=== PATIENT | male | born 1995 | race Caucasian/White ===

== ENCOUNTER 2018-06-21 00:02 | Emergency (ER) | payer BC ==
[2018-06-21 00:16] VITALS: RESP 18
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
[2018-06-21 07:34] VITALS: BP 120/60; PULSE 82; TEMP 97
== END 2018-06-21 08:37 | disposition home or self-care (01) ==
LOC: EC 00:02 → SUPCPDRO 00:02 → EC 08:37
DX: F10.120 Alcohol abuse with intoxication, uncomplicated (principal); F17.200 Nicotine dependence, unspecified, uncomplicated
CPT/HCPCS: 82075; 99284

== ENCOUNTER 2019-04-04 22:52 | Emergency (ER) | payer BC ==
[2019-04-04 23:01] VITALS: BP 140/84; PULSE 108; RESP 18; TEMP 97.8
[2019-04-04] MEDS ORDERED: LIDOCAINE 1% INJ 10MG/ML (20 ML MDV) SQ ONE (23:49)
[2019-04-04] MEDS ORDERED: DIPH,PERTUS(ACELL)TETVAC-LF 0.5 ML VIAL IM ONE (23:49)
[2019-04-04] MEDS ORDERED: LORazepam 2 MG/ML INJ IM STA (23:56)
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
[2019-04-05 01:08] LABS: Amphetamine Screen,Urine Not Detected (NotDetected); Barbiturate Screen,Urine Not Detected (NotDetected); Benzodiazepines Screen,Urine Not Detected (NotDetected); Cocaine Screen,Urine Not Detected (NotDetected); Methadone Screen, Urine Not Detected (NotDetected); Opiate Screen,Urine Not Detected (NotDetected); Oxycodone Screen, Urine Not Detected (NotDetected); Phencyclidine Screen,Urine Not Detected (NotDetected); Tricyclic Antidepressant,Urine Not Detected (NotDetected); Urn Cannabinoid Scrn Not Detected (NotDetected)
--- NOTE | 2019-04-05 01:08 | CT ---
EXAM: CT Head Without Intravenous Contrast CT Maxillofacial Without Intravenous Contrast CLINICAL HISTORY: ITS.REASON CT Reason: Pain TECHNIQUE: Axial computed tomography images of the head/brain and face without intravenous contrast. CTDI is 9 mGy and DLP is 285 mGy-cm. This CT exam was performed using one or more of the following dose reduction techniques: automated exposure control, adjustment of the mA and/or kV according to patient size, and/or use of iterative reconstruction technique. COMPARISON: No relevant prior studies available. FINDINGS: Brain: Unremarkable. No hemorrhage. No significant white matter disease. No edema. Ventricles: Unremarkable. No ventriculomegaly. Bones/joints: No acute fracture. Soft tissues: Unremarkable. Sinuses: Unremarkable. No acute sinusitis. Mastoid air cells: Unremarkable. No mastoid effusion. Orbits: Unremarkable. IMPRESSION: No acute facial fracture.
--- NOTE | 2019-04-05 01:10 | CT ---
EXAM: CT Head Without Intravenous Contrast CLINICAL HISTORY: ITS.REASON CT Reason: Pain TECHNIQUE: Axial computed tomography images of the head/brain without intravenous contrast. CTDI is 6 mGy and DLP is 823 mGy-cm. This CT exam was performed using one or more of the following dose reduction techniques: automated exposure control, adjustment of the mA and/or kV according to patient size, and/or use of iterative reconstruction technique. COMPARISON: No relevant prior studies available. FINDINGS: Brain: No hemorrhage, large hypodensity, or mass effect. Ventricles: No hydrocephalus. Bones/joints: Unremarkable. Soft tissues: Unremarkable. Sinuses: Unremarkable. Mastoid air cells: Clear. IMPRESSION: No acute hemorrhage, hydrocephalus, or mass effect. EXAM: CT Cervical Spine Without Intravenous Contrast CLINICAL HISTORY: ITS.REASON CT Reason: Pain TECHNIQUE: Axial computed tomography images of the cervical spine without intravenous contrast. CTDI is 9 mGy and DLP is 284 mGy-cm. This CT exam was performed using one or more of the following dose reduction techniques: automated exposure control, adjustment of the mA and/or kV according to patient size, and/or use of iterative reconstruction technique. COMPARISON: No relevant prior studies available. FINDINGS: Vertebrae: No acute fracture. Discs/spinal canal/neural foramina: No high grade spinal canal stenosis. Soft tissues: Unremarkable. IMPRESSION: No acute fracture or subluxation.
== END 2019-04-05 01:33 | disposition home or self-care (01) ==
LOC: EC 22:52
DX: S01.112A Laceration without foreign body of left eyelid and periocular area, initial encounter (principal); S51.811A Laceration without foreign body of right forearm, initial encounter; F10.129 Alcohol abuse with intoxication, unspecified; F17.200 Nicotine dependence, unspecified, uncomplicated; Z23 Encounter for immunization; Y04.0XXA Assault by unarmed brawl or fight, initial encounter
CPT/HCPCS: 80306; 72125; 70486; 70450; 90715; 99284; 12013; 12002; 96372; 90471; J2060; J2001

== ENCOUNTER 2020-04-10 20:45 | Emergency (ER) | payer BC ==
[2020-04-10] MEDS ORDERED: PANTOPRAZOLE 40 MG/10 ML VIAL IVP STA (21:04)
[2020-04-10] MEDS ORDERED: SODIUM CHLORIDE 0.9% 1,000 ML IV ONE (21:04)
[2020-04-10] MEDS ORDERED: SODIUM CHLORIDE 0.9% 1,000 ML with MVI, ADULT NO.4 WITH VIT K 10 ML, THIAMINE 100 MG, F... IV ONE ×4 (21:04)
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
[2020-04-10] MEDS ORDERED: SODIUM CHLORIDE 0.9% 1,000 ML IV SCH (21:15)
[2020-04-10 21:23] LABS: HCT 50.1 % (39.0-53.0); HGB 16.4 gm/dL (13.0-17.5); MCH 30.5 pg (25.0-35.0); MCHC 32.7 g/dL (31.0-37.0); MCV 93.1 fL (80.0-100.0); Mean Platelet Volume 7.6; Platelet Count 288 k/uL (150-450); RBC 5.38 m/uL (4.30-5.90); RDW 13.6 % (11.5-15.5); WBC 13.5 k/uL (3.8-10.6)
[2020-04-10 21:26] LABS: Appearance,Urine Clear (Clear); Bilirubin,Urine Negative (Negative); Blood,Urine Negative (Negative); Color,Urine Light Yellow; Glucose,Urine (UA) Negative (Negative); Ketones,Urine Negative (Negative); Leukocyte Esterase,Urine Negative (Negative); Nitrite,Urine Negative (Negative); PH, Urine 6.5 (5.0-8.0); Protein,Urine Negative (Negative); Specific Gravity,Urine 1.005 (1.001-1.035); Urobilinogen,Urine <2.0 mg/dL (<2.0)
[2020-04-10 21:33] LABS: ALT 56 U/L (4-49); AST 47 U/L (17-59); African American GFR (CKD) >90 (>60 ml/min/1.73 sqM); Albumin 5.3 g/dL (3.5-5.0); Alkaline Phosphatase 62 U/L (38-126); Amylase 72 U/L (30-110); Anion Gap 17 mmol/L; Blood Urea Nitrogen 9 mg/dL (9-20); Calcium 11.1 mg/dL (8.4-10.2); Carbon Dioxide 23 mmol/L (22-30); Chloride 103 mmol/L (98-107); Glucose 124 mg/dL (74-99); Magnesium 1.8 mg/dL (1.6-2.3); Non-African American GFR(CKD) >90 (>60 ml/min/1.73 sqM); Potassium 3.9 mmol/L (3.5-5.1); Sodium 143 mmol/L (137-145); Total Bilirubin 0.5 mg/dL (0.2-1.3); Total Protein 8.5 g/dL (6.3-8.2)
[2020-04-10 21:46] LABS: Amphetamine Screen,Urine Not Detected (NotDetected); Barbiturate Screen,Urine Not Detected (NotDetected); Benzodiazepines Screen,Urine Not Detected (NotDetected); Cocaine Screen,Urine Not Detected (NotDetected); Methadone Screen, Urine Not Detected (NotDetected); Opiate Screen,Urine Not Detected (NotDetected); Oxycodone Screen, Urine Not Detected (NotDetected); Phencyclidine Screen,Urine Not Detected (NotDetected); Tricyclic Antidepressant,Urine Not Detected (NotDetected); Urn Cannabinoid Scrn Not Detected (NotDetected)
[2020-04-10 21:50] LABS: Band Neutrophils % 5 %; Eosinophils # (M) 0.41 k/uL (0-0.7); Lymphocytes # (M) 3.51 k/uL (1.0-4.8); Monocytes # (M) 0.68 k/uL (0-1.0); Neutrophils % (M) 61 %; Nucleated Red Blood Cells 0 /100 WBC (0-0); Total Cells Counted 100
[2020-04-11 03:40] VITALS: BP 153/90; PULSE 83; RESP 18; TEMP 98
== END 2020-04-11 03:40 | disposition home or self-care (01) ==
LOC: EC 20:45
DX: F10.129 Alcohol abuse with intoxication, unspecified (principal); R45.851 Suicidal ideations; R10.13 Epigastric pain; Z91.5 Personal history of self-harm
CPT/HCPCS: 82075; 36415; 80053; 82150; 83690; 83735; 85025; 81003; 80306; 99285; 96365; 96366 ×5; 96375; J3411; C9113

== ENCOUNTER 2020-04-13 21:15 | Observation (INO) | payer BC ==
[2020-04-13] MEDS ORDERED: SODIUM CHLORIDE 0.9% 1,000 ML IV ONE ×2 (21:50)
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
[2020-04-13 22:27] LABS: African American GFR (CKD) >90 (>60 ml/min/1.73 sqM); Amylase 69 U/L (30-110); Anion Gap 14 mmol/L; Blood Urea Nitrogen 11 mg/dL (9-20); Calcium 9.1 mg/dL (8.4-10.2); Carbon Dioxide 24 mmol/L (22-30); Chloride 106 mmol/L (98-107); Glucose 104 mg/dL (74-99); Magnesium 2.1 mg/dL (1.6-2.3); Non-African American GFR(CKD) >90 (>60 ml/min/1.73 sqM); Potassium 3.9 mmol/L (3.5-5.1); Sodium 144 mmol/L (137-145)
[2020-04-13 22:30] LABS: Phencyclidine Screen,Urine Not Detected (NotDetected); Urn Cannabinoid Scrn Not Detected (NotDetected)
[2020-04-13 22:31] LABS: Amphetamine Screen,Urine Not Detected (NotDetected); Barbiturate Screen,Urine Not Detected (NotDetected); Benzodiazepines Screen,Urine Not Detected (NotDetected); Cocaine Screen,Urine Not Detected (NotDetected); Methadone Screen, Urine Not Detected (NotDetected); Opiate Screen,Urine Not Detected (NotDetected); Oxycodone Screen, Urine Not Detected (NotDetected); Tricyclic Antidepressant,Urine Not Detected (NotDetected)
[2020-04-13 23:02] LABS: Alcohol 343 mg/dL
[2020-04-13 23:21] LABS: HCT 46.6 % (39.0-53.0); HGB 15.6 gm/dL (13.0-17.5); MCH 31.4 pg (25.0-35.0); MCHC 33.4 g/dL (31.0-37.0); Mean Platelet Volume 7.8; Platelet Count 229 k/uL (150-450); RBC 4.96 m/uL (4.30-5.90); RDW 13.9 % (11.5-15.5); WBC 8.6 k/uL (3.8-10.6)
[2020-04-13] MEDS ORDERED: ONDANSETRON 4 MG/2 ML VIAL IVP STA (23:45)
[2020-04-13 23:56] LABS: Band Neutrophils % 3 %; Basophils # (M) 0.26 k/uL (0-0.2); Eosinophils # (M) 0.43 k/uL (0-0.7); Lymphocytes # (M) 2.32 k/uL (1.0-4.8); Monocytes # (M) 0.34 k/uL (0-1.0); Neutrophils % (M) 58 %; Nucleated Red Blood Cells 0 /100 WBC (0-0); Total Cells Counted 100
[2020-04-13] MEDS ORDERED: IBUPROFEN 400 MG TAB PO PRN (23:56)
[2020-04-13] MEDS ORDERED: NALOXONE 0.4 MG/ML 1 ML VIAL IV PRN (23:56)
[2020-04-13] MEDS ORDERED: ONDANSETRON 4 MG/2 ML VIAL IVP PRN (23:56)
[2020-04-13] MEDS ORDERED: LORazepam 2 MG/ML INJ IV PRN ×2 (23:57)
[2020-04-13] MEDS ORDERED: THIAMINE 100 MG/ML 2 ML VIAL IM STA (23:57)
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
[2020-04-14] MEDS: LORazepam 2 MG/ML INJ IV PRN ×2 (02:23→08:38)
[2020-04-14] MEDS: PANTOPRAZOLE 40 MG TABLET PO SCH ×3 (02:27→17:18)
[2020-04-14] MEDS: SODIUM CHLORIDE 0.9% 1,000 ML IV SCH ×3 (02:34→17:17)
[2020-04-14] MEDS: THIAMINE 100 MG TAB PO SCH ×3 (02:49→17:18)
[2020-04-14] MEDS: NICOTINE 21MG/24HR PATCH TRANSDERM SCH (08:30)
[2020-04-14] MEDS ORDERED: PANTOPRAZOLE 40 MG/10 ML VIAL IV SCH (09:00)
[2020-04-14] MEDS ORDERED: THIAMINE 100 MG/ML 2 ML VIAL IM STA (10:30)
[2020-04-14] MEDS: FOLIC ACID 1 MG TAB PO SCH (11:03)
--- NOTE | 2020-04-14 12:07 | XR ---
EXAMINATION TYPE: XR ankle complete RT DATE OF EXAM: 04/14/2020 COMPARISON: None HISTORY: Pain TECHNIQUE: Three-view right ankle FINDINGS: Ankle mortise is intact. No acute fractures or dislocations are evident. Soft tissues appea r normal. IMPRESSION: 1. Normal three-view right ankle. 2. Follow-up exams can be performed 7-10 days from acute trauma for continued pain
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
--- NOTE | 2020-04-14 18:27 | P.PN ---
Progress Note - Text Progress Note Date: 04/14/20 (delayed charting seen at 0945) Hospitalist Interval Note Patient seen and examined at bedside. He does report some intermittent gastritis, he is having some anxiety, diaphoresis, and tremors. He does have a history of possible trial seizure in the past. Does state "drinking alcohol. He has been drinking a pint +3 large beers daily. Vital signs reviewed General: non toxic, no distress, appears at stated age Derm: warm, diaphoretic Head: atraumatic, normocephalic, symmetric Eyes: EOMI, no lid lag, anicteric sclera Mouth: no lip lesion, mucus membranes moist Cardiovascular: S1S2 reg, no murmur, positive posterior tibial pulse bilateral, Lungs: CTA bilateral, no rhonchi, no rales , no accessory muscle use Abdominal: soft, nontender to palpation, no guarding, no appreciable organomegaly Ext: no gross muscle atrophy, no edema, no contractures Neuro: CN II-XI grossly intact, no focal neuro deficits, tremor Psych: Alert, oriented, appropriate affect Assessment/Plan: Alcohol intoxication with withdrawal symptoms -Add Librium, continue with CIWA, thiamine, folic acid Suicidal ideation -Await psychiatric evaluation Tobacco abuse -Nicotine replacement This is an update note for patient , for full note on 04/14/2020 see history and physical by Dr. Kiser. There is no charge associated with this note.
[2020-04-15] MEDS: SODIUM CHLORIDE 0.9% 1,000 ML IV SCH ×2 (01:21→08:41)
[2020-04-15] MEDS: NICOTINE 21MG/24HR PATCH TRANSDERM SCH (08:37)
[2020-04-15] MEDS: THIAMINE 100 MG TAB PO SCH (08:37)
[2020-04-15] MEDS: FOLIC ACID 1 MG TAB PO SCH (08:37)
[2020-04-15] MEDS: PANTOPRAZOLE 40 MG TABLET PO SCH (08:38)
--- NOTE | 2020-04-15 10:29 | P.DS ---
Providers Date of admission: 04/14/20 00:20 Expected date of discharge: 04/15/20 Attending physician: Baldomero Benito MD Consults: 04/13/20 23:56 Consult Physician Stat Consulting Provider: Savage Maher Reason/Comments: suicidal ideation Do you want consulting provider notified?: Yes Primary care physician: Stated None Hospital Course: Discharge Diagnosis: Alcohol intoxication with mild withdrawal Suicidal ideation during intoxication Tobacco abuse Hospital Course: Patient is a 24-year-old male for history of tobacco abuse, alcohol abuse, and prior episode of low tidal ideation who was brought into the hospital secondary to alcohol intoxication and suicidal ideation. Initial laboratory analysis was unremarkable other than serum alcohol level of 343. He was admitted for alcohol intoxication with impending withdrawal. He initially was started on CIWA protocol and then was started on fixed dose Librium. His withdrawal symptoms improved. He met with social work and received information on alcohol abstinence programs. He is medically stable for evaluation by psych, who determined he did not require inpatient psychiatric treatment. His plans are to attend [facility] this comming week. Patient seen and examined at bedside. No nausea, no vomiting, no diaphoresis, no tremors Vital signs reviewed and stable. General: non toxic, no distress, appears at stated age Derm: warm, dry Head: atraumatic, normocephalic, symmetric Eyes: EOMI, no lid lag, anicteric sclera Mouth: no lip lesion, mucus membranes moist Cardiovascular: S1S2 reg, no murmur, positive posterior tibial pulse bilateral, Lungs: CTA bilateral, no rhonchi, no rales , no accessory muscle use Abdominal: soft, nontender to palpation, no guarding, no appreciable organomegaly Ext: no gross muscle atrophy, no edema, no contractures Neuro: CN II-XI grossly intact, no focal neuro deficits Psych: Alert, oriented, appropriate affect A total of 25 minutes of time were spent preparing this complex discharge summary . Patient Condition at Discharge: Stable Plan - Discharge Summary New Discharge Prescriptions: New Folic Acid 1 mg PO DAILY #10 tab Pantoprazole [Protonix] 40 mg PO DAILY #30 tablet. Thiamine [Vitamin B-1] 100 mg PO BID-W/MEALS #20 tab Discharge Medication List Folic Acid 1 mg PO DAILY #10 tab 04/15/20 [Rx] Pantoprazole [Protonix] 40 mg PO DAILY #30 tablet. 04/15/20 [Rx] Thiamine [Vitamin B-1] 100 mg PO BID-W/MEALS #20 tab 04/15/20 [Rx] Follow up Appointment(s)/Referral(s): None,Stated [Primary Care Provider] - 1-2 days Activity/Diet/Wound Care/Special Instructions: Activity: as tolerated Diet: regular Special Instructions: Abstain from Alcohol Discharge Disposition: HOME SELF-CARE
[2020-04-15 12:40] VITALS: BP 135/84; PULSE 89; RESP 17; TEMP 98.6
--- NOTE | 2020-04-15 14:04 | P.CON ---
Consult Note - . Consult date: 04/15/20 Assessment/Plan:: Clinical Problems: Alcohol use disorder, alcohol intoxication, alcohol withdrawal, antisocial personal disorder Interim history: I reviewed the medical record and interviewed the patient. He denied alcohol withdrawal symptoms or feelings of depression. He denied having suicidal ideation, plan or intent. He attributed his behavior and suicidal thoughts to his alcohol use and alcohol intoxication. He remains interested in substance abuse treatment believes that his uncle has security admission to [facility] this Friday. After discharge she plans to apologize to his uncle for his behavior. Mental status exam: He presented as a casually groomed young female who is laying comfortably in bed. He is wearing hospital gowns. He made eye contact and attended the interview. He had a bright facial expression. He is alert and oriented to person, place and time. He showed no abnormality of psychomotor activity. His speech was spontaneous with normal rate, rhythm and volume. His affect was bright, stable and appropriate. He denied suicidal ideation or wishes. He denied homicidal ideation. He denied feeling hopeless, helpless or worthless. He did not express ideas reference, paranoid ideation or delusions. His thinking was concrete but his associations were coherent, logical and goal directed. He denied hallucinations and did not appear to be responding to internal stimuli. Assessment: He has a history of alcohol use and alcohol use related problems. He has suicide threats and gestures when he is intoxicated. [facility] He was acutely intoxicated with a blood alcohol level of 343. He has since recovered from acute alcohol intoxication and is no longer experiencing suicidal ideation. There is no indication for transfer the psychiatric unit. He would benefit from residential substance abuse treatment. Plan: Discontinue one-to-one. Provide information about accessing residential substance abuse treatment services. There is no indication at this time for referral for outpatient mental health services. Psychiatry will sign off the case.
== END 2020-04-15 15:36 | disposition home or self-care (01) ==
LOC: EC 21:15 → 5NMEDONC 04-14 00:20
PROVIDERS: ADMIT Internal Medicine; ATTEND Internal Medicine
DX: F10.129 Alcohol abuse with intoxication, unspecified (principal); F10.14 Alcohol abuse with alcohol-induced mood disorder; F60.2 Antisocial personality disorder; R45.851 Suicidal ideations; Y90.8 Blood alcohol level of 240 mg/100 ml or more; Z03.818 Encounter for observation for suspected exposure to other biological agents ruled out; F31.9 Bipolar disorder, unspecified; F41.1 Generalized anxiety disorder; I10 Essential (primary) hypertension; K21.9 Gastro-esophageal reflux disease without esophagitis; K29.70 Gastritis, unspecified, without bleeding; F17.200 Nicotine dependence, unspecified, uncomplicated; Z91.5 Personal history of self-harm; Z81.8 Family history of other mental and behavioral disorders; Z81.1 Family history of alcohol abuse and dependence
CPT/HCPCS: 96376; 96361 ×4; 96372; 96375; 96374; 99285; 36415; 80048; 82075; 82150; 83690; 83735; 85025; 80306; 80320; 73610; G0378 ×2; U0003; S4990 ×2; J2060; J3411; J2405

== ENCOUNTER 2021-03-05 17:04 | Inpatient (IN) | payer BC ==
[2021-03-05] MEDS ORDERED: SODIUM CHLORIDE 0.9% 1,000 ML with MVI, ADULT NO.4 WITH VIT K 10 ML, THIAMINE 100 MG, F... IV ONE ×4 (17:25)
--- NOTE | 2021-03-05 17:25 | ED ---
Alcohol HPI - General Chief Complaint: Alcohol Stated Complaint: seizure Time Seen by Provider: 03/05/21 17:04 Source: patient, EMS, RN notes reviewed Mode of arrival: EMS Limitations: no limitations - History of Present Illness Initial Comments: Is a 25-year-old male history of a call is in who brought in after having a seizure. He's been attempting the withdrawal from alcohol. He had a 4 minute seizure he was post ictal afterwards some confusion. He did have urinary incontinence. MD Complaint: alcohol withdrawal - Related Data Home Medications Medication Instructions Recorded Confirmed No Known Home Medications 03/05/21 03/05/21 Allergies Allergy/AdvReac Type Severity Reaction Status Date / Time No Known Allergies Allergy Verified 03/05/21 20:02 Review of Systems ROS Statement: Those systems with pertinent positive or pertinent negative responses have been documented in the HPI. ROS Other: All systems not noted in ROS Statement are negative. Past Medical History Past Medical History: Hypertension Additional Past Medical History / Comment(s): Pt states he tried killing himself last october and has a large scar on his right upper neck. History of Any Multi-Drug Resistant Organisms: None Reported Past Surgical History: No Surgical Hx Reported Additional Past Surgical History / Comment(s): Patient had surgery to repair neck injury from suicide attempt Past Anesthesia/Blood Transfusion Reactions: No Reported Reaction Past Psychological History: Anxiety, Bipolar, Depression Smoking Status: Current every day smoker Past Alcohol Use History: Abuse, Daily Past Drug Use History: Marijuana General Exam - General Exam Comments Initial Comments: This is a well-developed well-nourished awake alert Limitations: no limitations General appearance: alert, in no apparent distress Head exam: Present: atraumatic, normocephalic, normal inspection Eye exam: Present: normal appearance, PERRL, EOMI. Absent: scleral icterus, conjunctival injection, periorbital swelling ENT exam: Present: mucous membranes dry Neck exam: Present: normal inspection. Absent: tenderness, meningismus, lympha denopathy Respiratory exam: Present: normal lung sounds bilaterally. Absent: respiratory distress, wheezes, rales, rhonchi, stridor Cardiovascular Exam: Present: normal rhythm, tachycardia, normal heart sounds. Absent: systolic murmur, diastolic murmur, rubs, gallop, clicks GI/Abdominal exam: Present: soft, normal bowel sounds. Absent: distended, tenderness, guarding, rebound, rigid Extremities exam: Present: normal inspection, full ROM, normal capillary refill, other (Some tremors noted). Absent: tenderness, pedal edema, joint swelling, calf tenderness Back exam: Present: normal inspection Neurological exam: Present: alert, oriented X3, CN II-XII intact Psychiatric exam: Present: normal affect, normal mood Skin exam: Present: warm, dry, intact, normal color. Absent: rash Course Vital Signs 03/05/21 03/05/21 03/05/21 17:06 17:48 18:58 Temperature 98.2 F Pulse Rate 119 H 107 H 101 H Respiratory 19 18 18 Rate Blood Pressure 134/95 143/88 139/87 O2 Sat by Pulse 95 96 95 Oximetry Medical Decision Making - Medical Decision Making Patient rested comfortably throughout his emergency Department due to a seizure he will be admitted he demonstrates evidence of withdrawal seizures. He'll be placed on the withdrawal protocol - Lab Data Result diagrams: 03/05/21 17:28 03/05/21 17:28 Lab Results 03/05/21 03/05/21 Range/Units 17:28 17:28 WBC 9.1 (3.8-10.6) k/uL RBC 4.62 (4.30-5.90) m/uL Hgb 15.5 (13.0-17.5) gm/dL Hct 45.9 (39.0-53.0) % MCV 99.4 (80.0-100.0) fL MCH 33.6 (25.0-35.0) pg MCHC 33.8 (31.0-37.0) g/dL RDW 13.0 (11.5-15.5) % Plt Count 137 L (150-450) k/uL MPV 8.4 Neutrophils % 84 % Lymphocytes % 7 % Monocytes % 6 % Eosinophils % 1 % Basophils % 1 % Neutrophils # 7.6 (1.3-7.7) k/uL Lymphocytes # 0.6 L (1.0-4.8) k/uL Monocytes # 0.6 (0-1.0) k/uL Eosinophils # 0.1 (0-0.7) k/uL Basophils # 0.1 (0-0.2) k/uL Sodium 135 L (137-145) mmol/L Potassium 4.3 (3.5-5.1) mmol/L Chloride 99 (98-107) mmol/L Carbon Dioxide 14 L (22-30) mmol/L Anion Gap 22 mmol/L BUN 11 (9-20) mg/dL Creatinine 0.80 (0.66-1.25) mg/dL Est GFR (CKD-EPI)AfAm >90 (>60 ml/min/1.73 sqM) Est GFR (CKD-EPI)NonAf >90 (>60 ml/min/1.73 sqM) Glucose 169 H (74-99) mg/dL Calcium 9.4 (8.4-10.2) mg/dL Magnesium 2.0 (1.6-2.3) mg/dL Total Bilirubin 0.6 (0.2-1.3) mg/dL AST 213 H (17-59) U/L ALT 170 H (4-49) U/L Alkaline Phosphatase 65 (38-126) U/L Creatine Kinase 98 (55-170) U/L Total Protein 7.7 (6.3-8.2) g/dL Albumin 4.8 (3.5-5.0) g/dL Lipase 380 H (23-300) U/L Serum Alcohol <10 mg/dL - EKG Data -: EKG Interpreted by Me EKG shows normal: sinus rhythm EKG Comments: Sinus tachycardia rate 112 DC interval 156 QRS 90 QT since QTC 336/458 Disposition Clinical Impression: Alcohol withdrawal seizure, Alcohol abuse Disposition: ADMITTED IP TO THIS HOSP Condition: Fair Referrals: None,Stated [Primary Care Provider] - 1-2 days
[2021-03-05] MEDS ORDERED: LORazepam 2 MG/ML INJ IV STA (17:42)
[2021-03-05 18:32] LABS: Basophils # (A) 0.1 k/uL (0-0.2); Basophils % (A) 1 %; Eosinophils # (A) 0.1 k/uL (0-0.7); Eosinophils % (A) 1 %; HCT 45.9 % (39.0-53.0); HGB 15.5 gm/dL (13.0-17.5); Lymphocytes # (A) 0.6 k/uL (1.0-4.8); Lymphocytes % (A) 7 %; MCH 33.6 pg (25.0-35.0); MCHC 33.8 g/dL (31.0-37.0); MCV 99.4 fL (80.0-100.0); Mean Platelet Volume 8.4; Monocytes # (A) 0.6 k/uL (0-1.0); Monocytes % (A) 6 %; Neutrophils # (A) 7.6 k/uL (1.3-7.7); Neutrophils % (A) 84 %; Platelet Count 137 k/uL (150-450); RBC 4.62 m/uL (4.30-5.90); WBC 9.1 k/uL (3.8-10.6)
[2021-03-05 18:43] LABS: ALT 170 U/L (4-49); AST 213 U/L (17-59); African American GFR (CKD) >90 (>60 ml/min/1.73 sqM); Albumin 4.8 g/dL (3.5-5.0); Alcohol <10 mg/dL; Alkaline Phosphatase 65 U/L (38-126); Anion Gap 22 mmol/L; Blood Urea Nitrogen 11 mg/dL (9-20); Calcium 9.4 mg/dL (8.4-10.2); Carbon Dioxide 14 mmol/L (22-30); Chloride 99 mmol/L (98-107); Creatine Kinase 98 U/L (55-170); Glucose 169 mg/dL (74-99); Lipase 380 U/L (23-300); Non-African American GFR(CKD) >90 (>60 ml/min/1.73 sqM); Potassium 4.3 mmol/L (3.5-5.1); Sodium 135 mmol/L (137-145); Total Bilirubin 0.6 mg/dL (0.2-1.3); Total Protein 7.7 g/dL (6.3-8.2)
[2021-03-05] MEDS ORDERED: NALOXONE 0.4 MG/ML 1 ML VIAL IV PRN (21:17)
[2021-03-05] MEDS ORDERED: LORazepam 2 MG/ML INJ IV PRN (21:22)
[2021-03-05] MEDS ORDERED: THIAMINE 100 MG/ML 2 ML VIAL IM STA (21:22)
[2021-03-05] MEDS: THIAMINE 100 MG TAB PO SCH (21:28)
[2021-03-05] MEDS: LORazepam 2 MG/ML INJ IV PRN (21:32)
[2021-03-05] MEDS: SODIUM CHLORIDE 0.9% 1,000 ML IV SCH (21:54)
[2021-03-05] MEDS: PANTOPRAZOLE 40 MG TABLET PO SCH (23:04)
[2021-03-06] MEDS ORDERED: MAG HYDROX/AL HYDROX/SIMETH 30 ML CUP PO PRN (00:32)
--- NOTE | 2021-03-06 00:43 | P.HPIM ---
History of Present Illness H&P Date: 03/06/21 Patient is a 25-year-old male with a PMH of alcohol abuse who presented to the emergency room after a witnessed tonic-clonic seizure. The history is obtained from the patient at the bedside in the emergency room. He reports that he had been drinking 8-10 large tall boy beers daily for the past several years. He reports that he is likely been drinking excessively for the past 7-8 years and has a history of multiple hospitalizations for intoxication and withdrawal. He reports that he had been trying to cut down his drinking over the past several days and that he only had 2 beers yesterday and was visiting his mom earlier tonight when he suddenly lost consciousness and was noted to have a tonic-clonic seizure as witnessed by his mother and sister. The patient had urinary incontinence and also bit his tongue. The family activated EMS and the patient was reported to have post ictal confusion for roughly 4 minutes. He reports being shaky in the emergency room and feeling overall tired but denied any head trauma during the seizure. Also denied chest discomfort, shortness of breath. Reports some heartburn but denied abdominal pain, nausea, vomiting, fever, chills, cough, diarrhea. Denied a prior history of seizures. In the emergency room and EKG revealed sinus tachycardia at 1 12 bpm but was otherwise unremarkable. Laboratory evaluation was remarkable for a CO2 of 14, sodium 135, glucose 169, AST 213, ALT 170, lipase 380, platelets 137, and an alcohol level of less than 10. Review of systems: Pertinent positives and negatives as discussed in HPI, a complete review of systems was performed and all other systems are negative. Physical examination: General: Tremulous male, non toxic, no distress, appears at stated age, normal weight Derm: no unusual rashes/lesions no unusual ecchymoses, warm, dry Head: atraumatic, normocephalic, symmetric Eyes: EOMI, no lid lag, anicteric sclera, pupils equal round reactive to light ENT: Nose and ears atraumatic, no thrush, no pharyngeal erythema, bilateral tongue bites noted Neck: No thyromegaly, no cervical lymphadenopathy, trachea midline, supple Mouth: no lip lesion, mucus membranes moist Cardiovascular: S1S2 reg, no murmur, positive posterior tibial pulse bilateral, no edema, capillary refill less than 2 seconds Lungs: CTA bilateral, no rhonchi, no rales , no accessory muscle use Abdominal: soft, nontender to palpation, no guarding, no appreciable organomegaly, normal bowel sounds Ext: no gross muscle atrophy, muscle strength 5 out of 5 in all 4 extremities grossly, no contractures, Neuro: Outstretched bilateral hand tremor noted, CN II-XI grossly intact, light touch intact all 4 extremities Psych: Alert, oriented, appropriate affect Assessment/plan Alcohol withdrawal seizure -[facility] protocol -Continue with thiamine -IV fluids -Protonix -Monitor LFTs -Monitor electrolytes daily -Seizure, fall, aspiration precautions Thrombocytopenia -Likely secondary to alcohol abuse -Monitor for now DVT prophylaxis -IPCDs The patient is admitted with an anticipated greater than 2 midnight stay for evaluation of EtOH withdrawal seizure CODE STATUS: Full code Discussed with: Patient Anticipated discharge date: 2-[address]: Home A total of 40 minutes was spent on the care of this complex patient more than 50% of the time was spent in counseling and care coordination. Past Medical History Past Medical History: Hypertension Additional Past Medical History / Comment(s): Pt states he tried killing himself last october and has a large scar on his right upper neck. History of Any Multi-Drug Resistant Organisms: None Reported Past Surgical History: No Surgical Hx Reported Additional Past Surgical History / Comment(s): Patient had surgery to repair neck injury from suicide attempt Past Anesthesia/Blood Transfusion Reactions: No Reported Reaction Past Psychological History: Anxiety, Bipolar, Depression Smoking Status: Current every day smoker Past Alcohol Use History: Abuse, Daily Past Drug Use History: Marijuana Medications and Allergies Home Medications Medication Instructions Recorded Confirmed Type No Known Home Medications 03/05/21 03/05/21 History Allergies Allergy/AdvReac Type Severity Reaction Status Date / Time No Known Allergies Allergy Verified 03/05/21 20:02 Physical Exam Vitals: Vital Signs Temp Pulse Resp BP Pulse Ox 03/05/21 18:58 101 H 18 139/87 95 03/05/21 17:48 107 H 18 143/88 96 03/05/21 17:06 98.2 F 119 H 19 134/95 95 Intake and Output 03/05/21 03/05/21 03/06/21 14:59 22:59 06:59 Other: Weight 68.039 kg Results CBC & Chem 7: 03/05/21 17:28 03/05/21 17:28 Labs: Abnormal Lab Results - Last 24 Hours (Table) 03/05/21 03/05/21 Range/Units 17:28 17:28 Plt Count 137 L (150-450) k/uL Lymphocytes # 0.6 L (1.0-4.8) k/uL Sodium 135 L (137-145) mmol/L Carbon Dioxide 14 L (22-30) mmol/L Glucose 169 H (74-99) mg/dL AST 213 H (17-59) U/L ALT 170 H (4-49) U/L Lipase 380 H (23-300) U/L
[2021-03-06 04:53] LABS: HCT 44.6 % (39.0-53.0); HGB 15.3 gm/dL (13.0-17.5); MCH 33.7 pg (25.0-35.0); MCHC 34.3 g/dL (31.0-37.0); MCV 98.3 fL (80.0-100.0); Mean Platelet Volume 8.7; Platelet Count 99 k/uL (150-450); RBC 4.54 m/uL (4.30-5.90); WBC 6.9 k/uL (3.8-10.6)
[2021-03-06] MEDS: LORazepam 2 MG/ML INJ IV PRN ×3 (06:45→15:28)
[2021-03-06] MEDS: THIAMINE 100 MG TAB PO SCH ×2 (08:52→17:40)
[2021-03-06] MEDS: PANTOPRAZOLE 40 MG TABLET PO SCH ×2 (08:52→17:40)
--- NOTE | 2021-03-06 12:57 | P.PN ---
Subjective Progress Note Date: 03/06/21 Hospital course: Patient is a 25-year-old male with a past medical history significant for alcohol abuse who presented to the emergency department after a witnessed tonic- clonic seizure. Patient reports long-standing history of drinking a minimum of 8-10 tall boys per day for the past 5 years with occasional use of liquor in addition. Patient reports that he has gotten himself into some legal problems and had his last alcoholic beverage late Friday night early Friday morning, as he reports he was attempting to withdraw from alcohol prior to being incarcer ated. Patient was reportedly withdrawing at home and while visiting with his mother he reportedly lost consciousness and was reported to have tonic clonic movements, loss of bladder, and bit tongue. This was reportedly witnessed by his mother and sister whom immediately called EMS and brought him to the hospital for further evaluation. Patient was seen and fully evaluated in the emergency department. Labs drawn with CBC revealing thrombocytopenia with platelet count of 137, hyponatremia with sodium of 135, elevated lipase of 380, and elevated liver enzymes with AST of 213, ALT of 170. EKG completed showing sinus tachycardia at 112 bpm with no noted T-wave or ST abnormalities. Physical exam: Patient seen and fully evaluated at the bedside this morning. Patient reports feeling slightly tremulous, but otherwise denies having any complaints at this time including headache, lightheadedness, dizziness, changes in vision or hearing, chest pain or palpitations, shortness of breath, abdominal pain, nausea, vomiting, or experiencing any numbness/tingling/weakness in extremities. Patient denies having any visual or auditory hallucinations. General: non toxic, no distress, appears at stated age Derm: warm, dry Head: atraumatic, normocephalic, symmetric Eyes: EOMI, no lid lag, anicteric sclera Mouth: no lip lesion, mucus membranes moist Cardiovascular: S1S2 reg, no murmur, positive posterior tibial pulse bilateral, Lungs: CTA bilateral, no rhonchi, no rales , no accessory muscle use Abdominal: soft, nontender to palpation, no guarding, no appreciable organomegaly Ext: no gross muscle atrophy, no edema, no contractures Neuro: CN II-XI grossly intact, no focal neuro deficits Psych: Alert, oriented, appropriate affect Plan of care: Alcohol withdrawal with seizure activity -[facility] protocol with symptom triggered medication management with Ativan. -Seizure precautions, fall precautions, and aspiration precautions in place. -Continued hydration with IV fluids. -Thiamine 100 mg twice daily with m-eals. -Monitor LFTs and platelet levels closely. Thrombocytopenia, likely secondary to chronic alcohol abuse -Platelets 137,000 and upon arrival and repeat a.m. labs show platelet level decreasing to 99,000. -We will continue to monitor closely with repeat a.m. labs. CODE STATUS: 25-year-old male DVT prophylaxis: SCDs Discussed with: Patient and RN Anticipated discharge date: Clinical course to determine Anticipated discharge place: Home A total of 45 minutes was spent on the care of this complex patient more than 50% of the time was spent in counseling and care coordination. Objective - Vital Signs Vital signs: Vital Signs Temp 98.2 F 03/05/21 17:06 Pulse 83 03/06/21 06:35 Resp 18 03/06/21 06:35 BP 126/71 03/06/21 06:35 Pulse Ox 98 03/06/21 06:35 Intake & Output 03/05/21 03/06/21 03/06/21 18:59 06:59 18:59 Weight 68.039 kg - Labs CBC & Chem 7: 03/06/21 04:38 03/05/21 17:28 Labs: Abnormal Lab Results - Last 24 Hours (Table) 03/05/21 03/05/21 03/06/21 Range/Units 17:28 17:28 04:38 Plt Count 137 L 99 L (150-450) k/uL Lymphocytes # 0.6 L (1.0-4.8) k/uL Sodium 135 L (137-145) mmol/L Carbon Dioxide 14 L (22-30) mmol/L Glucose 169 H (74-99) mg/dL AST 213 H (17-59) U/L ALT 170 H (4-49) U/L Lipase 380 H (23-300) U/L
[2021-03-06 16:19] LABS: African American GFR (CKD) 136.1 (60.0-200.0); Albumin 4.4 g/dL (3.80-4.90); Albumin/Globulin Ratio 1.76 (1.60-3.17); Anion Gap 12.9 mmol/L (4.00-12.00); BUN/Creat Ratio 15.56 Ratio (12.00-20.00); Carbon Dioxide 23.1 mmol/L (21.6-31.8); Globulin 2.5 g/dL (1.6-3.3); Non-African American GFR(CKD) 117.5 (60.0-200.0); Potassium 3.9 mmol/L (3.5-5.5); Total Bilirubin 0.8 mg/dL (0.3-1.2); Total Protein 6.9 g/dL (6.2-8.2)
[2021-03-06] MEDS: NICOTINE 14MG/24HR PATCH TRANSDERM SCH (17:40)
[2021-03-06] MEDS: SODIUM CHLORIDE 0.9% 1,000 ML IV SCH (21:18)
[2021-03-07 04:42] VITALS: BP 123/77; PULSE 96; RESP 18; TEMP 98.2
[2021-03-07] MEDS: THIAMINE 100 MG TAB PO SCH (08:59)
[2021-03-07] MEDS: NICOTINE 14MG/24HR PATCH TRANSDERM SCH (08:59)
[2021-03-07] MEDS: PANTOPRAZOLE 40 MG TABLET PO SCH (08:59)
[2021-03-07] MEDS ORDERED: FOLIC ACID 1 MG TAB PO SCH (09:00)
[2021-03-07] MEDS ORDERED: MULTIVITAMINS, THERA 1 EACH TAB PO SCH (09:00)
--- NOTE | 2021-03-07 11:12 | P.DS ---
Providers Date of admission: 03/05/21 21:18 Expected date of discharge: 03/07/21 Attending physician: Sonu Rice MD Primary care physician: Stated None Hospital Course: Alcohol withdrawal with seizure activity Thrombocytopenia secondary to Chronic Alcohol Abuse Patient is a 25-year-old male with a past medical history significant for alcohol abuse who presented to the emergency department after a witnessed tonic- clonic seizure. Patient reports long-standing history of drinking a minimum of 8-10 tall boys per day for the past 5 years with occasional use of liquor in addition. Patient reports that he has gotten himself into some legal problems and had his last alcoholic beverage late Friday night early Friday morning, as he reports he was attempting to withdraw from alcohol prior to being incarcerated. Patient was reportedly withdrawing at home and while visiting with his mother he reportedly lost consciousness and was reported to have tonic clonic movements, loss of bladder, and bit tongue. This was reportedly witnessed by his mother and sister whom immediately called EMS and brought him to the hospital for further evaluation. Patient was seen and fully evaluated in the emergency department. Labs drawn with CBC revealing thrombocytopenia with platelet count of 137, hyponatremia with sodium of 135, elevated lipase of 380, and elevated liver enzymes with AST of 213, ALT of 170. EKG completed showing sinus tachycardia at 112 bpm with no noted T-wave or ST abnormalities. Patient was treated with CIWA protocol and observed on telemetry for 2 days. He did not demonstrate any further seizure activity, and required on minimal amounts of ativan, total of 2mg in last 24 hours prior to discharge. Patient was discharged home with counseling regarding seeking out AA to maintain sobriety. He was prescribed thiamine, MVI, folate for total of 14 days. He was also prescribed naltrexone for 30 days to curb ETOH cravings. I spent 32 minutes coordinating this patient's discharge. Assessment: Gen: awake, alert HEENT: normocephalic, atraumatic, good hearing acuity, moist mucous membranes Resp: good air exchange, breathing comfortably with no accessory muscle use, clear to auscultation bilaterally CVS: good distal perfusion x 4, regular rate and rhythm without murmurs GI: soft, NTTP, ND : no SPT, no CVAT, granger catheter not present MSK: no pitting edema, no clubbing Neuro: non-focal, moving all extremities Psych: cooperative, euthymic mood Patient Condition at Discharge: Good Plan - Discharge Summary Discharge Rx Participant: No New Discharge Prescriptions: New Multivitamins, Thera [Multivitamin (formulary)] 1 each PO DAILY #14 tab Naltrexone HCl [Revia] 50 mg PO DAILY #30 tablet Folic Acid 1 mg PO DAILY #14 tab Thiamine [Vitamin B-1] 100 mg PO BID-W/MEALS #28 tab Discharge Medication List Folic Acid 1 mg PO DAILY #14 tab 03/07/21 [Rx] Multivitamins, Thera [Multivitamin (formulary)] 1 each PO DAILY #14 tab 03/07/21 [Rx] Naltrexone HCl [Revia] 50 mg PO DAILY #30 tablet 03/07/21 [Rx] Thiamine [Vitamin B-1] 100 mg PO BID-W/MEALS #28 tab 03/07/21 [Rx] Follow up Appointment(s)/Referral(s): None,Stated [Primary Care Provider] - 1-2 days Patient Instructions/Handouts: Thiamine (By mouth), Folic Acid (By mouth), Multivitamins, Adult Formula (By mouth), Naltrexone (By mouth), How to Stop Smoking (DC), Nonepileptic Seizures (DC), Abuse of Alcohol (DC), Alcohol Withdrawal (DC) Discharge Disposition: HOME SELF-CARE
== END 2021-03-07 10:00 | disposition home or self-care (01) | DRG 897 ==
LOC: EC 17:04 → 5NMEDONC 21:18
PROVIDERS: ADMIT Internal Medicine; ATTEND Internal Medicine
DX: F10.139 Alcohol abuse with withdrawal, unspecified (principal); E87.1 Hypo-osmolality and hyponatremia; R56.9 Unspecified convulsions; F31.9 Bipolar disorder, unspecified; D69.59 Other secondary thrombocytopenia; I10 Essential (primary) hypertension; Z20.822 Contact with and (suspected) exposure to COVID-19; Y90.0 Blood alcohol level of less than 20 mg/100 ml; F41.9 Anxiety disorder, unspecified; R32 Unspecified urinary incontinence; Z91.5 Personal history of self-harm; F17.210 Nicotine dependence, cigarettes, uncomplicated; Z71.6 Tobacco abuse counseling; Z65.3 Problems related to other legal circumstances
CPT/HCPCS: 36415; 80053; 80320; 82550; 83690; 83735; 85025; 85027; 87635; 93005; 96365; 96366; 96375; 99285

== ENCOUNTER 2022-04-18 05:27 | Inpatient (IN) | payer BC ==
[2022-04-18] MEDS ORDERED: SODIUM CHLORIDE 0.9% 1,000 ML IV STA ×2 (05:43→06:47)
[2022-04-18] MEDS ORDERED: LORazepam 2 MG/ML INJ IV PRN (05:44)
[2022-04-18 05:58] LABS: Basophils # (A) 0.1 k/uL (0-0.2); Basophils % (A) 1 %; Eosinophils % (A) 0 %; Lymphocytes # (A) 1.1 k/uL (1.0-4.8); Lymphocytes % (A) 6 %; MCHC 34.3 g/dL (31.0-37.0); MCV 90.4 fL (80.0-100.0); Mean Platelet Volume 8.7; Monocytes # (A) 1.5 k/uL (0-1.0); Monocytes % (A) 8 %; Neutrophils # (A) 15.2 k/uL (1.3-7.7); Neutrophils % (A) 83 %; Platelet Count 391 k/uL (150-450); RBC 6.17 m/uL (4.30-5.90); RDW 12.6 % (11.5-15.5); WBC 18.3 k/uL (3.8-10.6)
[2022-04-18 05:59] LABS: HCT 55.7 % (39.0-53.0)
[2022-04-18] MEDS ORDERED: SODIUM CHLORIDE 0.9% 1,000 ML IV SCH (06:00)
[2022-04-18] MEDS ORDERED: LORazepam 2 MG/ML INJ IV STA (06:00)
[2022-04-18] MEDS ORDERED: LIDOCAINE 1% INJ 10MG/ML (5 ML VIAL-PF) SQ ONE (06:06)
[2022-04-18 06:08] LABS: Calcium 9.7 mg/dL (8.4-10.2); HGB 19.1 gm/dL (13.0-17.5); Magnesium 2.6 mg/dL (1.6-2.3); Potassium 3.3 mmol/L (3.5-5.1); Total Bilirubin 0.7 mg/dL (0.2-1.3); Total Protein 9.9 g/dL (6.3-8.2)
[2022-04-18] MEDS ORDERED: DIPH,PERTUS(ACELL)TETVAC-LF 0.5 ML VIAL IM ONE (06:08)
--- NOTE | 2022-04-18 06:09 | ED ---
Seizure HPI - General Chief Complaint: Seizure Stated Complaint: poss seizure Time Seen by Provider: 04/18/22 05:43 Source: patient, EMS, RN notes reviewed Mode of arrival: EMS Limitations: no limitations - History of Present Illness Initial Comments: This is a 26-year-old male presents emergency Department chief complaint of seizure. Patient was at home reported history of seizure. He does have a history of seizures from alcohol withdrawal. He states last drink was 12 hours ago he states he drinks a fifth a day. Patient noted have an abrasion, 2 lacerations on the right mandibular and lower chin region. Patient denies any extremity trauma. Patient states she does feel dehydrated, very thirsty feeling. Patient states he feels dizzy. Patient denies illicit drug use. Patient denies any medications currently. - Related Data Previous Rx's Medication Instructions Recorded Acetaminophen Tab [Tylenol] 650 mg PO Q6HR PRN tab 04/20/22 Pantoprazole Sodium [Protonix] 40 mg PO DAILY #15 tab 04/20/22 Thiamine [Vitamin B-1] 100 mg PO BID-W/MEALS 30 Days #60 04/20/22 tab chlordiazePOXIDE HCl [Librium] 25 mg PO TID 3 Days #12 capsule 04/20/22 Allergies Allergy/AdvReac Type Severity Reaction Status Date / Time No Known Allergies Allergy Verified 04/18/22 08:05 Review of Systems ROS Statement: Those systems with pertinent positive or pertinent negative responses have been documented in the HPI. ROS Other: All systems not noted in ROS Statement are negative. Past Medical History Past Medical History: Hypertension Additional Past Medical History / Comment(s): Pt states he tried killing himself last october and has a large scar on his right upper neck. History of Any Multi-Drug Resistant Organisms: None Reported Past Surgical History: No Surgical Hx Reported Additional Past Surgical History / Comment(s): Patient had surgery to repair neck injury from suicide attempt Past Anesthesia/Blood Transfusion Reactions: No Reported Reaction Past Psychological History: Anxiety, Bipolar, Depression Smoking Status: Current every day smoker Past Alcohol Use History: Abuse, Daily Past Drug Use History: Marijuana - Past Family History Mother Family Medical History: COPD Additional Family Medical History / Comment(s): History of ETOH. Hx of Bipolar (does not take medication). Hx. also of Crack Cocaine abuse. Father Additional Family Medical History / Comment(s): History of alcohol abuse General Exam Limitations: no limitations General appearance: in no apparent distress, lethargic Head exam: Present: atraumatic, normocephalic, normal inspection Eye exam: Present: normal appearance, PERRL, EOMI. Absent: scleral icterus, conjunctival injection, periorbital swelling ENT exam: Present: normal oropharynx, mucous membranes moist. Absent: normal exam (2 lacerations noted on the face, one 3 cm right mandibular, 2 cm inferior of the chin) Neck exam: Present: normal inspection, full ROM. Absent: tenderness, meningismus, lymphadenopathy Respiratory exam: Present: normal lung sounds bilaterally. Absent: respiratory distress, wheezes, rales, rhonchi, stridor Cardiovascular Exam: Present: regular rate, normal rhythm, normal heart sounds. Absent: systolic murmur, diastolic murmur, rubs, gallop, clicks Neurological exam: Present: alert, oriented X3, CN II-XII intact Skin exam: Present: warm, dry, intact, normal color. Absent: rash Course Vital Signs 04/18/22 04/18/22 04/18/22 05:31 08:00 11:25 Temperature 98.6 F 97.9 F 98.6 F Pulse Rate 104 H 110 H 110 H Respiratory 16 20 18 Rate Blood Pressure 109/73 127/77 111/62 O2 Sat by Pulse 94 L 100 93 L Oximetry Procedures - Laceration Laceration #1 Consent Obtained: verbal consent Indication: laceration Site: face Size (cm): 3 Description: irregular Depth: simple, single layer Anesthetic Used: lidocaine 1% Anesthesia Technique: local infiltration Amount (mls): 6 Pre-repair: wound explored, irrigated extensively, deep structures intact Type of Sutures: nylon Size of Sutures: 6-0 Number of Sutures: 5 Technique: simple, interrupted Patient Tolerated Procedure: well, no complications Laceration #2 Consent Obtained: verbal consent Indication: laceration Site: face Size (cm): 2 Description: linear Depth: simple, single layer Anesthetic Used: lidocaine 1%, without epi Anesthesia Technique: local infiltration Amount (mls): 4 Pre-repair: wound explored, irrigated extensively, deep structures intact Type of Sutures: nylon Size of Sutures: 6-0 Number of Sutures: 4 Technique: simple, interrupted Patient Tolerated Procedure: well, no complications Medical Decision Making - Medical Decision Making 26-year-old presented for possible seizure, alcohol withdrawal, multiple actually balance. Patient's found hyponatremic, hypochloremic hypokalemia with acute kidney injury of current creatinine greater than 4. Patient be admitted to medicine with consult to nephrology. Seizure may be from alcohol withdrawal versus electrolyte issue. Patient was started on withdrawal protocol. I did attempt to contact nephrology - Lab Data Result diagrams: 04/19/22 10:15 04/20/22 09:27 Lab Results 04/18/22 04/18/22 04/18/22 Range/Units 05:35 05:35 05:35 WBC 18.3 H (3.8-10.6) k/uL RBC 6.17 H (4.30-5.90) m/uL Hgb 19.1 H* (13.0-17.5) gm/dL Hct 55.7 H (39.0-53.0) % MCV 90.4 (80.0-100.0) fL MCH 31.0 (25.0-35.0) pg MCHC 34.3 (31.0-37.0) g/dL RDW 12.6 (11.5-15.5) % Plt Count 391 (150-450) k/uL MPV 8.7 Neutrophils % 83 % Lymphocytes % 6 % Monocytes % 8 % Eosinophils % 0 % Basophils % 1 % Neutrophils # 15.2 H (1.3-7.7) k/uL Lymphocytes # 1.1 (1.0-4.8) k/uL Monocytes # 1.5 H (0-1.0) k/uL Eosinophils # 0.0 (0-0.7) k/uL Basophils # 0.1 (0-0.2) k/uL Sodium 127 L (137-145) mmol/L Potassium 3.3 L (3.5-5.1) mmol/L Chloride 60 L* (98-107) mmol/L Carbon Dioxide 27 (22-30) mmol/L Anion Gap 40 mmol/L BUN 65 H (9-20) mg/dL Creatinine 4.50 H (0.66-1.25) mg/dL Est GFR (CKD-EPI)AfAm 19 (>60 ml/min/1.73 sqM) Est GFR (CKD-EPI)NonAf 17 (>60 ml/min/1.73 sqM) Glucose 188 H (74-99) mg/dL Calcium 9.7 (8.4-10.2) mg/dL Magnesium 2.6 H (1.6-2.3) mg/dL Total Bilirubin 0.7 (0.2-1.3) mg/dL AST 85 H (17-59) U/L ALT 87 H (4-49) U/L Alkaline Phosphatase 102 (38-126) U/L Troponin I 0.051 H* (0.000-0.034) ng/mL Total Protein 9.9 H (6.3-8.2) g/dL Albumin 6.0 H (3.5-5.0) g/dL Lipase 476 H (23-300) U/L Serum Alcohol 245 H* mg/dL Disposition Clinical Impression: Alcohol withdrawal seizure, Alcohol intoxication, Acute renal failure, Hypokalemia, Hyponatremia, Hypochloremia, Elevated troponin Disposition: ADMITTED IP TO THIS HOSP Condition: Fair
[2022-04-18] MEDS ORDERED: ONDANSETRON 4 MG/2 ML VIAL IVP STA ×2 (06:33→07:24)
[2022-04-18] MEDS ORDERED: POTASSIUM CHLORIDE ER 20 MEQ TAB.ER PO STA ×2 (06:55→16:17)
--- NOTE | 2022-04-18 06:58 | CT ---
EXAMINATION TYPE: CT brain cspine wo con DATE OF EXAM: 04/18/2022 COMPARISON: 04/04/2019 HISTORY: Trauma, seizure. CT DLP: 1438.2 mGycm Automated exposure control for dose reduction was used. Images obtained of the brain with no contrast. Images obtained from the skull base to T1 vertebra wit h no contrast. Ventricles and sulci appear normal. There is no mass effect or midline shift. No sign of intracranial hemorrhage. Calvarium is intact. The cervical vertebra have normal alignment. Disc spaces are normal. Posterior elements are intact. N o compression fracture. Exam limited slightly by motion. IMPRESSION: Negative CT scan of the brain. Negative CT scan cervical spine.
[2022-04-18] MEDS ORDERED: PANTOPRAZOLE 40 MG/10 ML VIAL IVP STA (07:12)
[2022-04-18] MEDS ORDERED: NALOXONE 0.4 MG/ML 1 ML VIAL IV PRN (07:33)
[2022-04-18] MEDS ORDERED: ONDANSETRON 4 MG/2 ML VIAL IVP PRN (07:33)
[2022-04-18] MEDS: LORazepam 2 MG/ML INJ IV PRN ×5 (07:48→23:34)
--- NOTE | 2022-04-18 09:28 | P.HPIM ---
History of Present Illness 26-year-old male came in with compensative seizure patient does have a alcohol abuse history last alcohol drink was last night and patient's alcohol level is about 200 when he came in and.. Patient had history of alcohol withdrawal seizures in the past. Patient drinks about a pint of hard liquor every day and the is willing to quit alcohol. Patient denied any depression or suicidal ideations at this time patient was having nausea vomiting since last night and patient is dehydrated dizzy. He does smoke about one and half packs of cigarettes per day. REVIEW OF SYSTEMS: CONSTITUTIONAL: No fever, no malaise, no fatigue. HEENT: No recent visual problems or hearing problems. Denied any sore throat. CARDIOVASCULAR: No chest pain, orthopnea, PND, no palpitations, no syncope. PULMONARY: No shortness of breath, no cough, no hemoptysis. GASTROINTESTINAL: No diarrhea. NEUROLOGICAL: No headaches, no weakness, no numbness. HEMATOLOGICAL: Denies any bleeding or petechiae. GENITOURINARY: Denies any burning micturition, frequency, or urgency. MUSCULOSKELETAL/RHEUMATOLOGICAL: Denies any joint pain, swelling, or any muscle pain. ENDOCRINE: Denies any polyuria or polydipsia. The rest of the 14-point review of systems is negative. PHYSICAL EXAMINATION: GENERAL: The patient is alert and oriented x3, not in any acute distress. Well developed, well nourished. HEENT: Pupils are round and equally reacting to light. EOMI. No scleral icterus. No conjunctival pallor. Normocephalic, atraumatic. No pharyngeal erythema. No thyromegaly. CARDIOVASCULAR: S1 and S2 present. No murmurs, rubs, or gallops. PULMONARY: Chest is clear to auscultation, no wheezing or crackles. ABDOMEN: Soft, nontender, nondistended, normoactive bowel sounds. No palpable organomegaly. MUSCULOSKELETAL: No joint swelling or deformity. EXTREMITIES: No cyanosis, clubbing, or pedal edema. NEUROLOGICAL: Gross neurological examination did not reveal any focal deficits. SKIN: No rashes. Assessment and plan -Acute alcoholic gastritis: Patient was started on Protonix, Zofran as needed patient was started on IV fluids. -Alcohol abuse, alcohol withdrawal: Patient was counseled regarding alcohol abuse and the patient was on Ativan CIWA protocol -Acute alcoholic hepatitis expected to include cessation of alcohol -Hypovolemic hyponatremia secondary to nausea vomiting and chronic alcohol use continue with IV fluids -Hypochloremia and hypokalemia secondary to nausea vomiting -Mild nonspecific elevation of lipase secondary to chronic alcoholism not have to say pancreatitis -Tachycardia secondary to dehydration -Acute renal failure prerenal ischemia there may be a competent of acute tubular necrosis, patient will be continued on IV fluids and monitor kidney function. DVT prophylaxis: Early ambulation Past Medical History Past Medical History: Hypertension, Seizure Disorder Additional Past Medical History / Comment(s): Tachycardia seen at [facility] in the past, ETOH abuse with withdrawal/seizures. History of Any Multi-Drug Resistant Organisms: None Reported Past Surgical History: No Surgical Hx Reported Additional Past Surgical History / Comment(s): Patient had surgery to repair neck injury from suicide attempt Past Anesthesia/Blood Transfusion Reactions: No Reported Reaction Smoking Status: Current every day smoker - Past Family History Mother Family Medical History: COPD Additional Family Medical History / Comment(s): History of ETOH. Hx of Bipolar (does not take medication). Hx. also of Crack Cocaine abuse. Father Additional Family Medical History / Comment(s): History of alcohol abuse Medications and Allergies Home Medications Medication Instructions Recorded Confirmed Type No Known Home Medications 04/18/22 04/18/22 History Allergies Allergy/AdvReac Type Severity Reaction Status Date / Time No Known Allergies Allergy Verified 04/18/22 08:05 Physical Exam Vitals: Vital Signs Temp Pulse Resp BP Pulse Ox 04/18/22 08:00 97.9 F 110 H 20 127/77 100 04/18/22 05:31 98.6 F 104 H 16 109/73 94 L Intake and Output 04/17/22 04/18/22 04/18/22 22:59 06:59 14:59 Other: Weight 92.986 kg 92.986 kg Results CBC & Chem 7: 04/18/22 05:35 04/18/22 05:35 Labs: Abnormal Lab Results - Last 24 Hours (Table) 04/18/22 04/18/22 04/18/22 Range/Units 05:35 05:35 05:35 WBC 18.3 H (3.8-10.6) k/uL RBC 6.17 H (4.30-5.90) m/uL Hgb 19.1 H* (13.0-17.5) gm/dL Hct 55.7 H (39.0-53.0) % Neutrophils # 15.2 H (1.3-7.7) k/uL Monocytes # 1.5 H (0-1.0) k/uL Sodium 127 L (137-145) mmol/L Potassium 3.3 L (3.5-5.1) mmol/L Chloride 60 L* (98-107) mmol/L BUN 65 H (9-20) mg/dL Creatinine 4.50 H (0.66-1.25) mg/dL Glucose 188 H (74-99) mg/dL Magnesium 2.6 H (1.6-2.3) mg/dL AST 85 H (17-59) U/L ALT 87 H (4-49) U/L Troponin I 0.051 H* (0.000-0.034) ng/mL Total Protein 9.9 H (6.3-8.2) g/dL Albumin 6.0 H (3.5-5.0) g/dL Lipase 476 H (23-300) U/L Serum Alcohol 245 H* mg/dL Thrombosis Risk Factor Assmnt - Choose All That Apply Any of the Below Risk Factors Present?: Yes Each Factor Represents 1 point: Obesity (BMI >25) Other Risk Factors: No Other congenital or acquired thrombophilia - If yes, enter type in comment: No Thrombosis Risk Factor Assessment Total Risk Factor Score: 1 Thrombosis Risk Factor Assessment Level: Low Risk
--- NOTE | 2022-04-18 09:29 | P.NPCON ---
History of Present Illness - Reason for Consult acute renal failure - History of Present Illness Reason for consultation: Acute kidney injury History of present illness: Patient is a 26-year-old male seen in renal consultation for acute kidney injury. Patient has history of heavy alcohol abuse and states he drinks about a fifth a day. He last drink alcohol yesterday evening. His serum alcohol level was 245 this admission. Patient presented to the hospital due to seizure. Patient states he had seizure from alcohol withdrawal. He is noted to have lacerations in his right jaw and chin area. Patient's creatinine in February 2021 was 0.9 and was elevated at 4.5 this admission. Patient states his oral intake the last few days has been poor as he's been vomiting throughout the day. He denies diarrhea. States he has been voiding but urine output has been low. He denies hematuria. He denies use of nonsteroidals. He denies family history of renal disease. Blood pressure stable. He did receive 2 L bolus of normal saline and is currently maintained on normal saline at 75 mL an hour. Denies use of IV drugs. Vital signs are stable. General: Awake. No acute distress. HEENT: Head exam is unremarkable. Chin and mandibular lacerations noted. LUNGS: Breath sounds decreased. HEART: Rate and Rhythm are regular. ABDOMEN: Soft, no distention. EXTREMITITES: No edema. Past Medical History Past Medical History: Hypertension, Seizure Disorder Additional Past Medical History / Comment(s): Tachycardia seen at [facility] in the past, ETOH abuse with withdrawal/seizures. History of Any Multi-Drug Resistant Organisms: None Reported Past Surgical History: No Surgical Hx Reported Additional Past Surgical History / Comment(s): Patient had surgery to repair neck injury from suicide attempt Past Anesthesia/Blood Transfusion Reactions: No Reported Reaction Past Psychological History: Anxiety, Depression Additional Psychological History / Comment(s): Pt resides alone in an apartment. He is independent. He has had suicidal thoughts/cut neck in suicide attempt in past but states he has not felt suicidal in a long time. Smoking Status: Current every day smoker Past Alcohol Use History: Abuse, Daily Additional Past Alcohol Use History / Comment(s): Pt started smoking in 2005 and is over a pppd smoker. Pt drinks 1/5 liqour a day and last drank 04/17/22 Past Drug Use History: None Reported - Past Family History Mother Family Medical History: COPD Additional Family Medical History / Comment(s): History of ETOH. Hx of Bipolar (does not take medication). Hx. also of Crack Cocaine abuse. Father Additional Family Medical History / Comment(s): History of alcohol abuse Medications and Allergies Home Medications Medication Instructions Recorded Confirmed Type No Known Home Medications 04/18/22 04/18/22 History Allergies Allergy/AdvReac Type Severity Reaction Status Date / Time No Known Allergies Allergy Verified 04/18/22 08:05 Physical Exam Vitals: Vital Signs Temp Pulse Resp BP Pulse Ox 04/18/22 08:00 97.9 F 110 H 20 127/77 100 04/18/22 05:31 98.6 F 104 H 16 109/73 94 L Intake and Output 04/17/22 04/18/22 04/18/22 22:59 06:59 14:59 Other: Weight 92.986 kg Results - Lab Results Most recent lab results Calcium 9.7 mg/dL (8.4-10.2) 04/18/22 05:35 Magnesium 2.6 mg/dL (1.6-2.3) H 04/18/22 05:35 04/18/22 05:35 04/18/22 05:35 Assessment and Plan Plan: assessment: 1. Acute kidney injury mostly prerenal secondary to hypovolemia from vomiting and poor intake. Creatinine 4.5 on admission. Creatinine was 0.9 in February 2021. Rule out urinary retention. 2. Hypovolemic hyponatremia with component of poor solute intake. 3. Hypokalemia from poor intake. 4. Hypochloremia from vomiting. 5. Alcohol abuse. 6. Status post fall with concern for seizure. Plan: Increase rate of normal saline to 100 mL an hour. Replace potassium. Check urinalysis. Check renal ultrasound. Check bladder scan to make sure no urinary retention. Check phosphorus level. Repeat BMP this afternoon. Thank you for the consultation. I will continue to follow the patient during his hospital stay.
[2022-04-18] MEDS: SODIUM CHLORIDE 0.9% 1,000 ML IV SCH ×2 (09:36→20:32)
--- NOTE | 2022-04-18 10:02 | US ---
EXAMINATION TYPE: US kidneys/renal and bladder DATE OF EXAM: 04/18/2022 COMPARISON: CT abdomen 10/26/2012. CLINICAL HISTORY: sergei. alcohol withdrawals, sergei EXAM MEASUREMENTS: Right Kidney: 11.8 x 4.9 x 4.4 cm Left Kidney: 10.2 x 4.9 x 4.9 cm Right Kidney: No hydronephrosis or masses seen . No shadowing calculi. Left Kidney: No hydronephrosis or masses seen. No shadowing calculi. Bladder: wnl Visualized liver is hyperechoic. IMPRESSION: No evidence of obstructive uropathy. Hepatic steatosis.
[2022-04-18] MEDS ORDERED: METOCLOPRAMIDE 5 MG/ML 2 ML VIAL IVP STA (10:17)
[2022-04-18] MEDS: NICOTINE 21MG/24HR PATCH TRANSDERM SCH (11:17)
[2022-04-18] MEDS: POTASSIUM CHLORIDE 20 MEQ in WATER FOR INJECTION 1 100ML.BAG IVPB SCH ×2 (12:52→15:09)
[2022-04-18 14:58] LABS: Calcium 7.6 mg/dL (8.4-10.2); Potassium 3.1 mmol/L (3.5-5.1)
[2022-04-18] MEDS: THIAMINE 100 MG TAB PO SCH (17:18)
[2022-04-18 17:24] LABS: Appearance,Urine Cloudy (Clear); Bilirubin,Urine Negative (Negative); Blood,Urine Negative (Negative); Color,Urine Yellow; Glucose,Urine (UA) Negative (Negative); Hyaline Casts,Urine 196 /lpf (0-2); Ketones,Urine Trace (Negative); Leukocyte Esterase,Urine Negative (Negative); Mucus,Urine Rare /hpf; Nitrite,Urine Negative (Negative); Protein,Urine 1+ (Negative); RBC,Urine 1 /hpf (0-5); Squamous Epithelial Cell,Urine 1 /hpf (0-4); Urobilinogen,Urine <2.0 mg/dL (<2.0); WBC,Urine 4 /hpf (0-5)
[2022-04-18] MEDS: PANTOPRAZOLE 40 MG/10 ML VIAL IV SCH (20:29)
[2022-04-19] MEDS: LORazepam 2 MG/ML INJ IV PRN ×8 (03:27→20:19)
[2022-04-19] MEDS: THIAMINE 100 MG TAB PO SCH ×2 (06:26→15:30)
[2022-04-19] MEDS: SODIUM CHLORIDE 0.9% 1,000 ML IV SCH ×2 (06:26→15:06)
[2022-04-19] MEDS: PANTOPRAZOLE 40 MG/10 ML VIAL IV SCH ×2 (07:55→20:19)
[2022-04-19] MEDS: NICOTINE 21MG/24HR PATCH TRANSDERM SCH (07:55)
--- NOTE | 2022-04-19 09:12 | P.PN ---
Subjective Patient is seen in follow-up for acute kidney injury and hyponatremia. Receiving IV fluids. Oral intake remains poor. Continues to have episodes of vomiting. Creatinine was 4.5 on admission and improved to 3.4 yesterday afternoon. Nonoliguric. Vital signs are stable. General: Awake. No acute distress. HEENT: Head exam is unremarkable. LUNGS: Breath sounds decreased. HEART: Rate and Rhythm are regular. ABDOMEN: Soft, no distention. EXTREMITITES: No edema. Objective - Vital Signs Vital signs: Vital Signs Temp 98.8 F 04/19/22 07:49 Pulse 115 H 04/19/22 07:49 Resp 20 04/19/22 07:49 BP 144/78 04/19/22 07:49 Pulse Ox 95 04/19/22 07:49 FiO2 Intake & Output 04/18/22 04/19/22 04/19/22 18:59 06:59 18:59 Intake Total 658 360 Output Total 540 1225 Balance 118 -865 Weight 92.986 kg Intake: Oral 658 360 Output: Urine 540 1225 Other: Voiding Method Urinal # Voids 1 # Bowel Movements 0 - Labs CBC & Chem 7: 04/18/22 05:35 04/18/22 20:51 Labs: Abnormal Lab Results - Last 24 Hours (Table) 04/18/22 04/18/22 04/18/22 Range/Units 13:41 13:41 17:10 Sodium 122 L (137-145) mmol/L Potassium 3.1 L (3.5-5.1) mmol/L Chloride 72 L* (98-107) mmol/L BUN 70 H (9-20) mg/dL Creatinine 3.40 H (0.66-1.25) mg/dL Glucose 163 H (74-99) mg/dL Calcium 7.6 L (8.4-10.2) mg/dL Phosphorus 7.5 H (2.5-4.5) mg/dL Urine Protein 1+ H (Negative) Urine Ketones Trace H (Negative) Hyaline Casts 196 H (0-2) /lpf Urine Mucus Rare H (None) /hpf Ur Random Sodium (40-220) mmol/L 04/18/22 04/18/22 Range/Units 17:10 20:51 Sodium 121 L (137-145) mmol/L Potassium (3.5-5.1) mmol/L Chloride (98-107) mmol/L BUN (9-20) mg/dL Creatinine (0.66-1.25) mg/dL Glucose (74-99) mg/dL Calcium (8.4-10.2) mg/dL Phosphorus (2.5-4.5) mg/dL Urine Protein (Negative) Urine Ketones (Negative) Hyaline Casts (0-2) /lpf Urine Mucus (None) /hpf Ur Random Sodium <20 L (40-220) mmol/L Assessment and Plan Plan: assessment: 1. Acute kidney injury mostly prerenal secondary to hypovolemia from vomiting and poor intake. Creatinine 4.5 on admission - 3.4 yesterday. Creatinine was 0.9 in February 2021. No hydronephrosis noted on kidney ultrasound. 2. Hypovolemic hyponatremia with component of poor solute intake. Urine sodium less than 20 and urine osmolality 540. 3. Hypokalemia from poor intake. Replaced. 4. Hypochloremia from vomiting. Improving with IV hydration. 5. Alcohol abuse. 6. Status post fall with concern for seizure. 7. Hyperphosphatemia secondary to acute kidney injury. Expect improvement with improving renal function. Plan: Maintain normal saline at 100 mL an hour. Encouraged oral intake. Maintain fluid restriction. Add sodium chloride tabs. Follow-up morning labs. Follow-up TSH.
[2022-04-19] MEDS ORDERED: SODIUM CHLORIDE TAB 1 GM TAB PO SCH (09:15)
[2022-04-19 11:07] LABS: HCT 42.7 % (39.0-53.0); MCH 32.4 pg (25.0-35.0); MCHC 34.6 g/dL (31.0-37.0); MCV 93.7 fL (80.0-100.0); Mean Platelet Volume 9.3; Platelet Count 216 k/uL (150-450); RBC 4.56 m/uL (4.30-5.90); RDW 13.1 % (11.5-15.5); WBC 12.4 k/uL (3.8-10.6)
[2022-04-19 11:10] LABS: ALT 52 U/L (4-49); AST 49 U/L (17-59); African American GFR (CKD) >90 (>60 ml/min/1.73 sqM); Albumin 4.2 g/dL (3.5-5.0); Alkaline Phosphatase 64 U/L (38-126); Anion Gap 6 mmol/L; Blood Urea Nitrogen 38 mg/dL (9-20); Calcium 8.4 mg/dL (8.4-10.2); Carbon Dioxide 39 mmol/L (22-30); Chloride 81 mmol/L (98-107); Glucose 109 mg/dL (74-99); Magnesium 2.5 mg/dL (1.6-2.3); Non-African American GFR(CKD) 80 (>60 ml/min/1.73 sqM); Potassium 3.2 mmol/L (3.5-5.1); Sodium 126 mmol/L (137-145); Total Bilirubin 0.9 mg/dL (0.2-1.3); Total Protein 6.7 g/dL (6.3-8.2)
[2022-04-19 11:17] LABS: HGB 14.8 gm/dL (13.0-17.5)
[2022-04-19] MEDS ORDERED: POTASSIUM CHLORIDE ER 20 MEQ TAB.ER PO STA (11:21)
[2022-04-19] MEDS: ACETAMINOPHEN TAB 325 MG TAB PO PRN (20:19)
[2022-04-19] MEDS ORDERED: Potassium Replacement Protocol 1 EACH MISC MISCELLANE PRN (23:22)
[2022-04-20 00:08] VITALS: RESP 18
[2022-04-20] MEDS ORDERED: chlorproMAZINE 25 MG TAB PO PRN (00:23)
--- NOTE | 2022-04-20 00:31 | P.PN ---
Subjective Progress Note Date: 04/20/22 26-year-old male came in with compensative seizure patient does have a alcohol abuse history last alcohol drink was last night and patient's alcohol level is about 200 when he came in and.. Patient had history of alcohol withdrawal seizures in the past. Patient drinks about a pint of hard liquor every day and the is willing to quit alcohol. Patient denied any depression or suicidal ideations at this time patient was having nausea vomiting since last night and patient is dehydrated dizzy. He does smoke about one and half packs of cigarettes per day. 04/19/2022 Patient evaluated today resting in bed. He does report nausea states he vomiting once last night once this morning. He does report headache and overall night feeling well. He reports hiccups which he feels are like spasm and would like something to help with that. Chlorpromazine prn has been added. Patient had bladder abdomen ultrasound completed which is showing hepatic steatosis there is no evidence for obstructive uropathy. Creatinine has improved significantly with IV fluids it is now 1.24, sodium 126, potassium 3.2 today he did receive oral supplement. Nephrology is following. on [facility] protocol. Review of Systems Constitutional: Denied any fatigue denied any fever. Cardio vascular: denied any chest pain, palpitations Gastrointestinal: Reports nausea, vomiting, denies diarrhea Pulmonary: Denied any shortness of breath cough Neurologic denied any new focal deficits Reports tremors headache All inpatient medications were reviewed and appropriate changes in these medications as dictated in the interval history and assessment and plan. PHYSICAL EXAMINATION: GENERAL: The patient is alert and oriented x3, not in any acute distress. Well developed, well nourished. He is fatigued HEENT: Pupils are round and equally reacting to light. EOMI. No scleral icterus. No conjunctival pallor. Normocephalic, atraumatic. No pharyngeal erythema. No thyromegaly. CARDIOVASCULAR: S1 and S2 present. No murmurs, rubs, or gallops. PULMONARY: Chest is clear to auscultation, no wheezing or crackles. ABDOMEN: Soft, nontender, nondistended, normoactive bowel sounds. No palpable organomegaly. MUSCULOSKELETAL: No joint swelling or deformity. EXTREMITIES: No cyanosis, clubbing, or pedal edema. NEUROLOGICAL: Gross neurological examination did not reveal any focal deficits. SKIN: No rashes. Assessment and plan -Acute alcoholic gastritis: Contine on protonix, zofran, liver enzymes are impro ving -Alcohol abuse, alcohol withdrawal: Patient was counseled regarding alcohol abusee, continues on CIWA -Acute alcoholic hepatitis expected to improve with cessation of alcohol -Hypovolemic hyponatremia secondary to nausea vomiting and chronic alcohol use continue with IV fluids -Hypochloremia and hypokalemia secondary to nausea vomiting -Mild nonspecific elevation of lipase secondary to chronic alcoholism not from pancreatitis -Tachycardia secondary to dehydration -Acute renal failure prerenal ischemia there may be a competent of acute tubular necrosis, patient will be continued on IV fluids. creatinine has improved to 1.24 DVT prophylaxis: Early ambulation GI prophylaxis: Protonix Full Code The impression and plan of care has been dictated by Kay Jones Nurse Practitioner as directed. Dr. Esther MD I have performed a history and physical examination and medical decision making of this patient, discussed the same with the dictator, and agree with the d ictators assessment and plan as written, documented as a scribe. Based on total visit time, I have performed more than 50% of this visit. Objective - Vital Signs Vital signs: Vital Signs Temp 98.1 F 04/20/22 00:00 Pulse 95 04/20/22 00:00 Resp 18 04/20/22 00:00 BP 153/97 04/20/22 00:00 Pulse Ox 94 L 04/20/22 00:00 FiO2 Intake & Output 04/19/22 04/19/22 04/20/22 06:59 18:59 06:59 Intake Total 360 Output Total 1225 1050 800 Balance -865 -1050 -800 Intake: Oral 360 Output: Urine 1225 1050 800 Other: Voiding Method Urinal Toilet Toilet Urinal Urinal # Voids 1 - Labs CBC & Chem 7: 04/19/22 10:15 04/19/22 10:15 Labs: Abnormal Lab Results - Last 24 Hours (Table) 04/18/22 04/19/22 04/19/22 Range/Units 17:10 10:15 10:15 WBC 12.4 H (3.8-10.6) k/uL Sodium 126 L (137-145) mmol/L Potassium 3.2 L (3.5-5.1) mmol/L Chloride 81 L (98-107) mmol/L Carbon Dioxide 39 H (22-30) mmol/L BUN 38 H (9-20) mg/dL Glucose 109 H (74-99) mg/dL Magnesium 2.5 H (1.6-2.3) mg/dL ALT 52 H (4-49) U/L Ur Random Sodium <20 L (40-220) mmol/L Assessment and Plan Time with Patient: Less than 30
[2022-04-20] MEDS: SODIUM CHLORIDE 0.9% 1,000 ML IV SCH ×2 (03:56→09:13)
[2022-04-20] MEDS: ACETAMINOPHEN TAB 325 MG TAB PO PRN ×2 (04:57→13:10)
[2022-04-20] MEDS: THIAMINE 100 MG TAB PO SCH (06:26)
[2022-04-20] MEDS ORDERED: SODIUM CHLORIDE TAB 1 GM TAB PO SCH (09:00)
[2022-04-20] MEDS: PANTOPRAZOLE 40 MG/10 ML VIAL IV SCH (09:13)
[2022-04-20] MEDS: NICOTINE 21MG/24HR PATCH TRANSDERM SCH (09:13)
[2022-04-20 10:20] LABS: African American GFR (CKD) >90 (>60 ml/min/1.73 sqM); Anion Gap 6 mmol/L; Blood Urea Nitrogen 18 mg/dL (9-20); Calcium 8.5 mg/dL (8.4-10.2); Carbon Dioxide 30 mmol/L (22-30); Chloride 96 mmol/L (98-107); Glucose 141 mg/dL (74-99); Magnesium 2.3 mg/dL (1.6-2.3); Non-African American GFR(CKD) >90 (>60 ml/min/1.73 sqM); Potassium 3.3 mmol/L (3.5-5.1); Sodium 132 mmol/L (137-145)
[2022-04-20] MEDS ORDERED: POTASSIUM CHLORIDE ER 20 MEQ TAB.ER PO SCH (11:00)
[2022-04-20 11:04] VITALS: TEMP 98
[2022-04-20] MEDS ORDERED: POTASSIUM CHLORIDE ER 20 MEQ TAB.ER PO STA (12:42)
[2022-04-20] MEDS: LORazepam 2 MG/ML INJ IV PRN (13:11)
--- NOTE | 2022-04-20 13:19 | PN ---
PROGRESS NOTE SUBJECTIVE: The patient is seen for followup for hyponatremia which appears to be hypovolemic, currently improving with saline administration. Patient also received a sodium chloride tab yesterday. No significant complaints today. PHYSICAL EXAMINATION: VITAL SIGNS: On examination today, blood pressure is 122/55, heart rate 114 per minute. Patient is afebrile. HEART: S1, S2. LUNGS: Bilateral breath sounds are heard. ABDOMEN: Soft, nontender. EXTREMITIES: Examination of lower extremities shows no evidence of edema. BENCH SCIENTIST: Grossly intact. LABORATORY DATA: Labs show sodium 133, potassium 3.3, BUN 18, serum creatinine 0.83. ASSESSMENT: 1. Hyponatremia which is hypovolemic and currently improving on normal saline. 2. Acute kidney injury, mostly prerenal, currently improved, with serum creatinine now down to 0.8 from 4.5 on initial admission. 3. Hypokalemia associated with decreased oral intake. 4. Status post fall with concern for seizure. PLAN: Continue with normal saline. Discontinue sodium chloride tabs. Replace potassium. Encourage increased oral intake. MMODL / IJN: [id number] /
[2022-04-20 13:57] VITALS: BP 154/79; PULSE 113
== END 2022-04-20 16:37 | disposition home or self-care (01) | DRG 896 ==
LOC: EC 05:27 → 3SCARD 07:41
PROVIDERS: ADMIT Hospitalist; ATTEND Hospitalist
PROC: HZ2ZZZZ Detoxification Services for Substance Abuse Treatment (ICD-10-PCS; principal; 2022-04-18)
PROC: 3E0234Z Introduction of Serum, Toxoid and Vaccine into Muscle, Percutaneous Approach (ICD-10-PCS; 2022-04-18)
PROC: 0HQ1XZZ Repair Face Skin, External Approach (ICD-10-PCS; 2022-04-18)
DX: F10.231 Alcohol dependence with withdrawal delirium (principal); N17.0 Acute kidney failure with tubular necrosis; E87.1 Hypo-osmolality and hyponatremia; F10.229 Alcohol dependence with intoxication, unspecified; E83.39 Other disorders of phosphorus metabolism; K29.20 Alcoholic gastritis without bleeding; K70.10 Alcoholic hepatitis without ascites; S01.81XA Laceration without foreign body of other part of head, initial encounter; E86.0 Dehydration; E86.1 Hypovolemia; R00.0 Tachycardia, unspecified; E87.6 Hypokalemia; R77.8 Other specified abnormalities of plasma proteins; R74.8 Abnormal levels of other serum enzymes; E87.8 Other disorders of electrolyte and fluid balance, not elsewhere classified; F41.9 Anxiety disorder, unspecified; F17.210 Nicotine dependence, cigarettes, uncomplicated; F31.9 Bipolar disorder, unspecified; G40.909 Epilepsy, unspecified, not intractable, without status epilepticus; I10 Essential (primary) hypertension; K76.0 Fatty (change of) liver, not elsewhere classified; Y90.8 Blood alcohol level of 240 mg/100 ml or more; Z82.5 Family history of asthma and other chronic lower respiratory diseases; Z91.51 Personal history of suicidal behavior; Z79.899 Other long term (current) drug therapy; Z81.1 Family history of alcohol abuse and dependence; Z23 Encounter for immunization; Z71.41 Alcohol abuse counseling and surveillance of alcoholic
CPT/HCPCS: 12014; 36415; 51798; 70450; 72125; 76770; 80048; 80053; 80320; 81001; 83690; 83735; 83930; 83935; 84100; 84295; 84300; 84443; 84484; 85025; 85027; 90471; 90715; 96374; 96375; 96376; 99285

== ENCOUNTER 2022-05-18 01:59 | Inpatient (IN) | payer BC ==
[2022-05-18] MEDS ORDERED: ZIPRASIDONE 20 MG VIAL IM STA (02:17)
[2022-05-18] MEDS ORDERED: THIAMINE 100 MG/ML 2 ML VIAL IM STA (02:41)
[2022-05-18] MEDS ORDERED: LORazepam 2 MG/ML INJ IV PRN ×2 (02:41)
--- NOTE | 2022-05-18 03:04 | ED ---
General Adult HPI - General Chief complaint: Psychiatric Symptoms Stated complaint: ETOH, Mental Health Time Seen by Provider: 05/18/22 02:02 Source: patient, EMS, RN notes reviewed, old records reviewed Mode of arrival: EMS - History of Present Illness Initial comments: Patient is a 26-year-old male that presents after being petitioned by police. Petition states "chance told me he wanted to kill himself as he attempted to grab the knife.". Patient has a history of alcohol abuse. Has a history of suicide attempts. Endorses drinking multiple fist this evening. Appears h eavily intoxicated. Has no other acute complaints at this time. Does endorse a history of alcohol withdrawals. Does endorse suicidal ideations this evening. Denies any plan. Denies homicidal ideations, attempts, plans. Denies visual or auditory hallucinations. - Related Data Previous Rx's Medication Instructions Recorded Acetaminophen Tab [Tylenol] 650 mg PO Q6HR PRN tab 04/20/22 Pantoprazole Sodium [Protonix] 40 mg PO DAILY #15 tab 04/20/22 Thiamine [Vitamin B-1] 100 mg PO BID-W/MEALS 30 Days #60 04/20/22 tab chlordiazePOXIDE HCl [Librium] 25 mg PO TID 3 Days #12 capsule 04/20/22 Allergies Allergy/AdvReac Type Severity Reaction Status Date / Time No Known Allergies Allergy Verified 04/18/22 08:05 Review of Systems ROS Statement: Those systems with pertinent positive or pertinent negative responses have been documented in the HPI. Review of Systems: CONST: Denies fever EYES: Denies blurry vision ENT: Denies nasal congestion C/V: Denies Chest pain RESP: Denies shortness of breath GI: Denies abdominal pain : Denies dysuria SKIN: Denies rash. MSK: Denies joint pain. NEURO: Denies headache PSYCH: Denies homicidal ideations/plans/attempts. Denies visual or auditory hallucinations. He endorses suicidal ideations, but denies plans or attempts to me. ROS Other: All systems not noted in ROS Statement are negative. Past Medical History Past Medical History: Hypertension Additional Past Medical History / Comment(s): Pt states he tried killing himself last october and has a large scar on his right upper neck. History of Any Multi-Drug Resistant Organisms: None Reported Past Surgical History: No Surgical Hx Reported Additional Past Surgical History / Comment(s): Patient had surgery to repair neck injury from suicide attempt Past Anesthesia/Blood Transfusion Reactions: No Reported Reaction Past Psychological History: Anxiety, Bipolar, Depression Smoking Status: Current every day smoker Past Alcohol Use History: Abuse, Daily Past Drug Use History: Marijuana - Past Family History Mother Family Medical History: COPD Additional Family Medical History / Comment(s): History of ETOH. Hx of Bipolar (does not take medication). Hx. also of Crack Cocaine abuse. Father Additional Family Medical History / Comment(s): History of alcohol abuse General Exam - General Exam Comments Initial Comments: General: Appears acutely intoxicated with alcohol. HEAD: Normal with no signs of head trauma. EYES: PERRLA, EOMI, conjunctiva normal, no discharge. ENT: Hearing grossly intact, normal oropharynx. RESPIRATORY: Clear breath sounds bilaterally. No wheezes, rales, or rhonchi. C/V: Regular rate and rhythm. S1 and S2 auscultated, no edema, peripheral pulses 2+ and intact throughout ABD: Abd is soft, nontender, nondistended EXT: Normal range of motion, no obvious deformity SKIN: No rashes or lesions observed on exposed skin. NEURO: Alert and oriented. No focal deficits. Course Vital Signs 05/18/22 05/18/22 02:05 04:58 Temperature 98.7 F Pulse Rate 78 81 Respiratory 15 15 Rate Blood Pressure 122/61 126/71 O2 Sat by Pulse 97 99 Oximetry Medical Decision Making - Medical Decision Making Based on the patient's presentation and physical exam, I'm concerned for the need for psychiatric evaluation. Also appears acutely intoxicated with alcohol. Patient was placed in agreement scribes. Sitter was ordered. Suicidal precautions were ordered. Patient was agitated and and was responding to verbal cues to calm down. Patient was administered a low dose of Geodon and responded well. Became cooperative. BAT is elevated, and we will obtain basic labs. Patient was placed on CIWA protocol. Currently no signs of alcohol withdrawal. Vital signs are within normal limits. We'll likely require admission for further monitoring due to his alcohol intoxication.. Patient will require psyc hiatric evaluation. Alcohol level is 408. Major the labs are relatively unremarkable. Patient will be admitted to the hospital to observation. Psychiatry will evaluate him when sober. Consult was placed to psych. I spoke with the admitting physician, Dr. Benito who accepted the patient. Patient was admitted in stable condition. - Lab Data Result diagrams: 05/18/22 04:15 05/18/22 04:15 Lab Results 05/18/22 05/18/22 Range/Units 04:15 04:15 WBC 5.1 (3.8-10.6) k/uL RBC 5.34 (4.30-5.90) m/uL Hgb 16.3 (13.0-17.5) gm/dL Hct 50.4 (39.0-53.0) % MCV 94.3 (80.0-100.0) fL MCH 30.4 (25.0-35.0) pg MCHC 32.3 (31.0-37.0) g/dL RDW 13.2 (11.5-15.5) % Plt Count 183 (150-450) k/uL MPV 8.6 Neutrophils % 64 % Lymphocytes % 20 % Monocytes % 11 % Eosinophils % 0 % Basophils % 0 % Neutrophils # 3.3 (1.3-7.7) k/uL Lymphocytes # 1.0 (1.0-4.8) k/uL Monocytes # 0.6 (0-1.0) k/uL Eosinophils # 0.0 (0-0.7) k/uL Basophils # 0.0 (0-0.2) k/uL Sodium 134 L (137-145) mmol/L Potassium 3.3 L (3.5-5.1) mmol/L Chloride 80 L (98-107) mmol/L Carbon Dioxide 29 (22-30) mmol/L Anion Gap 25 mmol/L BUN 15 (9-20) mg/dL Creatinine 0.76 (0.66-1.25) mg/dL Est GFR (CKD-EPI)AfAm >90 (>60 ml/min/1.73 sqM) Est GFR (CKD-EPI)NonAf >90 (>60 ml/min/1.73 sqM) Glucose 150 H (74-99) mg/dL Calcium 8.7 (8.4-10.2) mg/dL Serum Alcohol 408 H* mg/dL Disposition Clinical Impression: Suicidal behavior, Alcohol intoxication Disposition: ADMITTED IP TO THIS [facility] Condition: Stable Referrals: None,Stated [Primary Care Provider] - 1-2 days Time of Disposition: 05:30
[2022-05-18 04:37] LABS: Basophils % (A) 0 %; Eosinophils % (A) 0 %; HCT 50.4 % (39.0-53.0); HGB 16.3 gm/dL (13.0-17.5); Lymphocytes % (A) 20 %; MCH 30.4 pg (25.0-35.0); MCHC 32.3 g/dL (31.0-37.0); MCV 94.3 fL (80.0-100.0); Mean Platelet Volume 8.6; Monocytes # (A) 0.6 k/uL (0-1.0); Monocytes % (A) 11 %; Neutrophils # (A) 3.3 k/uL (1.3-7.7); Neutrophils % (A) 64 %; Platelet Count 183 k/uL (150-450); RBC 5.34 m/uL (4.30-5.90); RDW 13.2 % (11.5-15.5); WBC 5.1 k/uL (3.8-10.6)
[2022-05-18 05:08] LABS: African American GFR (CKD) >90 (>60 ml/min/1.73 sqM); Anion Gap 25 mmol/L; Blood Urea Nitrogen 15 mg/dL (9-20); Calcium 8.7 mg/dL (8.4-10.2); Carbon Dioxide 29 mmol/L (22-30); Chloride 80 mmol/L (98-107); Glucose 150 mg/dL (74-99); Non-African American GFR(CKD) >90 (>60 ml/min/1.73 sqM); Sodium 134 mmol/L (137-145)
[2022-05-18 05:29] LABS: Alcohol 408 mg/dL; Potassium 3.3 mmol/L (3.5-5.1)
[2022-05-18] MEDS ORDERED: NALOXONE 0.4 MG/ML 1 ML VIAL IV PRN (06:25)
[2022-05-18] MEDS ORDERED: ONDANSETRON 4 MG/2 ML VIAL IVP PRN (06:25)
[2022-05-18] MEDS: SODIUM CHLORIDE 0.9% 1,000 ML IV SCH ×2 (07:44→20:25)
[2022-05-18] MEDS: HEPARIN SODIUM,PORCINE/PF 5,000 UNIT/0.5 ML SYRINGE SQ SCH ×3 (07:48→20:24)
[2022-05-18] MEDS: LORazepam 2 MG/ML INJ IV PRN ×2 (08:03→10:19)
[2022-05-18] MEDS ORDERED: MELATONIN 3 MG TABLET PO PRN (10:01)
[2022-05-18] MEDS ORDERED: ACETAMINOPHEN TAB 325 MG TAB PO PRN (10:01)
[2022-05-18] MEDS ORDERED: PROCHLORPERAZINE INJ 10 MG/2 ML VIAL IVP STA (10:04)
[2022-05-18] MEDS: POTASSIUM CHLORIDE 10 MEQ in WATER FOR INJECTION 1 100ML.BAG IVPB SCH ×2 (10:21→12:21)
--- NOTE | 2022-05-18 10:42 | P.HPIM ---
History of Present Illness H&P Date: 05/18/22 Chief Complaint: suicidal ideation Patient is a 26 old male with a history of alcohol dependency, tobacco dependency, and depression who was brought in by police after being petitioned for suicidal ideation. In the emergency department he underwent an extensive evaluation. Vital signs within normal limits. Laboratory analysis was remarkable for sodium 134, potassium 3.3, and serum alcohol 408. He was placed in observation until he can be further evaluated by mental health. Patient seen and examined at bedside. He reports that yesterday he was feeling very depressed about the chest and abdomen had placed him to the hospital. He reports that he has been suffering from some dental caries and abscess and has been taking antibiotics the Dr. Lopez's office. He has not seen a dentist as he cannot afford his co-pays. He also reports to scab-like lesions one on his left middle finger and one on his abdomen. He reports that yesterday he was in his typical state of health. This morning he is feeling fidgety, anxious, nauseated, and vomited 1 one in the room, he also reports a headache and overall feeling like he is withdrawing. He reports that he is having some abdominal pain today which is typical of his alcohol withdrawal. He typically drinks 2/5 a day and smokes one to 2 packs of cigarettes daily. He denies any illicit drug use. Pertinent positives and negatives as discussed in HPI, a complete review of systems was performed and all other systems are negative. Vital signs reviewed General: nontoxic, mild distress, appears at stated age Derm: Diaphoretic, warm, dry Head: atraumatic, normocephalic, symmetric Eyes: EOMI, no lid lag, anicteric sclera, pupils equal round reactive to light ENT: Nose and ears atraumatic, no thrush, no pharyngeal erythema Neck: No thyromegaly, no cervical lymphadenopathy, trachea midline, supple Mouth: no lip lesion, mucus membranes dry, +multiple dental carries Cardiovascular: S1S2 tachycardiac, no murmur, positive posterior tibial pulse bilateral, no edema, capillary refill less than 2 seconds Lungs: clear to auscultation bilateral, no rhonchi, no rales, no wheeze, no accessory muscle use Abdominal: soft, +tender to palpation diffusely, no guarding, no appreciable organomegaly, normal bowel sounds Ext: no gross muscle atrophy, muscle strengthintact all 4 extremities, no cont ractures Neuro: CN II-XII grossly intact, light touch intact all 4 extremities, finger to nose within normal limits, Psych: Alert, oriented, appears anxious Assessment/Plan: Alcohol withdrawal Alcohol dependency Vomiting related to alcohol withdrawal - CIWA - Thiamine and folic acid - compazine X 1 Alcoholic gastritis - PPI Hypokalemia - replace Suicidal ideation Depression - await psych recs - await medication verification Tobacco abuse - cessation - replacement The patient is admitted with an anticipated less than 2 midnight stay for evaluation of sucidial ideation. DVT prophylaxis: SCDs Discussed with: patient, nursing Anticipated discharge date: today or tomorrow Anticipated discharge place: [facility] A total of 65 minutes was spent on the care of this complex patient more than 50% of the time was spent in counseling and care coordination. Past Medical History Past Medical History: Hypertension Additional Past Medical History / Comment(s): Alcohol withdrawal seizure. Hyponatremia. Alcoholic gastritis. Dental abscess. Dental carries History of Any Multi-Drug Resistant Organisms: None Reported Additional Past Surgical History / Comment(s): Patient had surgery to repair neck injury from suicide attempt Past Anesthesia/Blood Transfusion Reactions: No Reported Reaction Past Psychological History: Anxiety, Bipolar, Depression Smoking Status: Current every day smoker Past Alcohol Use History: Abuse, Daily Past Drug Use History: Marijuana - Past Family History Mother Family Medical History: COPD Additional Family Medical History / Comment(s): History of ETOH. Hx of Bipolar (does not take medication). Hx. also of Crack Cocaine abuse. Father Additional Family Medical History / Comment(s): History of alcohol abuse Medications and Allergies Home Medications Medication Instructions Recorded Confirmed Type Acetaminophen Tab [Tylenol] 650 mg PO Q6HR PRN tab 04/20/22 Rx Pantoprazole Sodium [Protonix] 40 mg PO DAILY #15 tab 04/20/22 Rx Thiamine [Vitamin B-1] 100 mg PO BID-W/MEALS 30 Days #60 04/20/22 Rx tab chlordiazePOXIDE HCl [Librium] 25 mg PO TID 3 Days #12 capsule 04/20/22 Rx Allergies Allergy/AdvReac Type Severity Reaction Status Date / Time No Known Allergies Allergy Verified 05/18/22 10:35 Physical Exam Osteopathic Statement: *. No significant issues noted on an osteopathic structural exam other than those noted in the History and Physical/Consult. Vitals: Vital Signs Temp Pulse Pulse Resp BP BP Pulse Ox 05/18/22 08:20 98.7 F 124 H 131/77 94 L 05/18/22 08:07 82 18 124/71 96 05/18/22 04:58 81 15 126/71 99 05/18/22 02:05 98.7 F 78 15 122/61 97 Intake and Output 05/17/22 05/18/22 05/18/22 22:59 06:59 14:59 Other: Weight 65.771 kg Results CBC & Chem 7: 05/18/22 04:15 05/18/22 04:15 Labs: Abnormal Lab Results - Last 24 Hours (Table) 05/18/22 Range/Units 04:15 Sodium 134 L (137-145) mmol/L Potassium 3.3 L (3.5-5.1) mmol/L Chloride 80 L (98-107) mmol/L Glucose 150 H (74-99) mg/dL Serum Alcohol 408 H* mg/dL
[2022-05-18] MEDS: NICOTINE 21MG/24HR PATCH TRANSDERM SCH (12:22)
[2022-05-18] MEDS: PANTOPRAZOLE 40 MG/10 ML VIAL IVP SCH ×2 (12:32→20:24)
--- NOTE | 2022-05-18 14:57 | P.CN ---
Psychiatric Consult - . Consult date: 05/18/22 Consult:: I evaluated patient today and discussed plan of care with nurse. Patient has a history of alcohol withdrawals seizures. Start Valium 10 mg IV Q6H scheduled for alcohol withdrawal (give first dose NOW), with Ativan PRN per CIVT protocol for breakthrough withdrawal. Continue sitter. Closely monitor vital signs. Hold benzodiazepines for SBP less than 100, and/or DBP less than 60, and/or HR less than 60, and/or appears oversedated. Low threshold for transfer to ICU for continuous monitoring. Full consult note to follow. 05/18/22 14:52
[2022-05-18 17:11] LABS: Amphetamine Screen,Urine Not Detected (NotDetected); Barbiturate Screen,Urine Not Detected (NotDetected); Benzodiazepines Screen,Urine Detected (NotDetected); Cocaine Screen,Urine Not Detected (NotDetected); Methadone Screen, Urine Not Detected (NotDetected); Opiate Screen,Urine Not Detected (NotDetected); Oxycodone Screen, Urine Not Detected (NotDetected); Phencyclidine Screen,Urine Not Detected (NotDetected); Tricyclic Antidepressant,Urine Not Detected (NotDetected); Urn Cannabinoid Scrn Not Detected (NotDetected)
--- NOTE | 2022-05-18 17:19 | XR ---
Two-view abdomen. HISTORY: Abdominal pain and vomiting. COMPARISON: None TECHNIQUE: Supine and upright views of the abdomen were obtained. FINDINGS: Lung bases are clear. There is no free air beneath the diaphragm. The bowel gas pattern is nonspecific and there is no evidence of bowel obstruction. No suspicious abdominal or pelvic calcifications are seen. The osseous structures are intact. IMPRESSION: No significant abnormality seen.
[2022-05-18] MEDS: ONDANSETRON 4 MG/2 ML VIAL IVP PRN ×2 (17:46→23:19)
[2022-05-18] MEDS: chlordiazePOXIDE 25 MG CAP PO SCH (20:24)
[2022-05-18] MEDS: THIAMINE 100 MG TAB PO SCH (20:24)
[2022-05-19] MEDS: chlordiazePOXIDE 25 MG CAP PO SCH ×4 (00:20→22:12)
[2022-05-19] MEDS ORDERED: METOCLOPRAMIDE 5 MG/ML 2 ML VIAL IVP STA (00:22)
[2022-05-19] MEDS: SODIUM CHLORIDE 0.9% 1,000 ML IV SCH ×2 (05:39→20:36)
[2022-05-19 06:41] LABS: HCT 40.7 % (39.0-53.0); HGB 13.5 gm/dL (13.0-17.5); MCH 31.2 pg (25.0-35.0); MCHC 33.3 g/dL (31.0-37.0); MCV 93.8 fL (80.0-100.0); Mean Platelet Volume 9.1; Platelet Count 120 k/uL (150-450); RBC 4.33 m/uL (4.30-5.90); RDW 13.3 % (11.5-15.5); WBC 5.1 k/uL (3.8-10.6)
[2022-05-19 06:52] LABS: ALT 56 U/L (4-49); AST 60 U/L (17-59); African American GFR (CKD) >90 (>60 ml/min/1.73 sqM); Albumin 3.8 g/dL (3.5-5.0); Albumin/Globulin Ratio 1.8; Alkaline Phosphatase 48 U/L (38-126); Anion Gap 11 mmol/L; Blood Urea Nitrogen 17 mg/dL (9-20); Calcium 8.3 mg/dL (8.4-10.2); Carbon Dioxide 36 mmol/L (22-30); Chloride 80 mmol/L (98-107); Globulin 2.1 g/dL; Glucose 100 mg/dL (74-99); Non-African American GFR(CKD) >90 (>60 ml/min/1.73 sqM); Potassium 2.8 mmol/L (3.5-5.1); Sodium 127 mmol/L (137-145); Total Bilirubin 0.9 mg/dL (0.2-1.3); Total Protein 5.9 g/dL (6.3-8.2)
[2022-05-19] MEDS: HEPARIN SODIUM,PORCINE/PF 5,000 UNIT/0.5 ML SYRINGE SQ SCH ×3 (09:20→20:54)
[2022-05-19] MEDS: POTASSIUM CHLORIDE 10 MEQ in WATER FOR INJECTION 1 100ML.BAG IVPB SCH ×4 (09:20→15:40)
[2022-05-19] MEDS: PANTOPRAZOLE 40 MG/10 ML VIAL IVP SCH ×2 (09:20→20:37)
[2022-05-19] MEDS: ONDANSETRON 4 MG/2 ML VIAL IVP PRN (09:20)
[2022-05-19] MEDS: THIAMINE 100 MG TAB PO SCH ×2 (09:21→17:56)
[2022-05-19] MEDS: NICOTINE 21MG/24HR PATCH TRANSDERM SCH (09:21)
[2022-05-19] MEDS: FOLIC ACID 1 MG TAB PO SCH (09:21)
[2022-05-19] MEDS: LACTATED RINGERS 1,000 ML IV SCH ×2 (09:45→20:37)
[2022-05-19 10:07] LABS: Total Bilirubin 0.9 mg/dL (0.2-1.3)
--- NOTE | 2022-05-19 10:44 | P.PN ---
Subjective Progress Note Date: 05/19/22 Principal diagnosis: suicidal ideation Patient is a 26 old male with a history of alcohol dependency, tobacco dependency, and depression who was brought in by police after being petitioned for suicidal ideation. In the emergency department he underwent an extensive evaluation. Vital signs within normal limits. Laboratory analysis was remarkable for sodium 134, potassium 3.3, and serum alcohol 408. He was placed in observation as he could not be evaluated by mental health due to his intoxication. He developed mild withhdwal symptoms, but was having significant vomiting. KUB was obtained and was unremarkable. Patient seen and examined at bedside. Still with vomiting, no diarrhea, some epigastric abdominal pain. States that this vomiting is very different than what is had with withdrawal in the past. Has a slight headache, some mild tremors but overall feels as though his withdrawal is better than yesterday. General: nontoxic, no distress, appears at stated age Derm: warm, dry Head: atraumatic, normocephalic, symmetric Eyes: EOMI, no lid lag, anicteric sclera Mouth: no lip lesion, mucus membranes moist Cardiovascular: S1S2 reg, no murmur, positive posterior tibial pulse bilateral, Lungs: CTA bilateral, no rhonchi, no rales , no accessory muscle use Abdominal: soft, + tender to palpation epigastric, no guarding, no appreciable organomegaly Ext: no gross muscle atrophy, no edema, no contractures Neuro: CN II-XI grossly intact, no focal neuro deficits Psych: Alert, oriented, appropriate affect Assessment/Plan: Alcohol withdrawal Alcohol dependency - CIWA - Thiamine and folic acid - Scheduled Librium Intractable vomiting -Chest CT abdomen and pelvis without contrast to evaluate for possible pancreatitis -check stat lipase -KUB without significant abnormalities -Transition from Zofran to Compazine as this worked better yesterday. Alcoholic gastritis - PPI Hypokalemia and hypomagnesemia - replace, recheck in a.m. Suicidal ideation Depression - Psych recommendations Tobacco abuse - cessation - replacement Patient has failed observation as he continues to have intractable nausea and vomiting and could not tolerate oral intake. Transition to inpatient status. PCP Dr. Lopez. DVT prophylaxis: SCDs Discussed with: patient, nursing Anticipated discharge date: tin 1-[address]: [facility] A total of 65 minutes was spent on the care of this complex patient more than 50% of the time was spent in counseling and care coordination. Objective - Vital Signs Vital signs: Vital Signs Temp 98.0 F 05/19/22 06:00 Pulse 109 H 05/19/22 06:00 Resp 18 05/19/22 06:00 BP 138/86 05/19/22 06:00 Pulse Ox 97 05/19/22 06:00 FiO2 Intake & Output 05/18/22 05/19/22 05/19/22 18:59 06:59 18:59 Intake Total 473 Balance 473 Weight 65.771 kg Intake: Oral 473 Other: Voiding Method Toilet # Voids 1 2 - Labs CBC & Chem 7: 05/19/22 06:02 05/19/22 06:02 Labs: Abnormal Lab Results - Last 24 Hours (Table) 05/18/22 05/19/22 05/19/22 Range/Units 16:46 06:02 06:02 Plt Count 120 L (150-450) k/uL Sodium 127 L (137-145) mmol/L Potassium 2.8 L (3.5-5.1) mmol/L Chloride 80 L (98-107) mmol/L Carbon Dioxide 36 H (22-30) mmol/L Glucose 100 H (74-99) mg/dL Calcium 8.3 L (8.4-10.2) mg/dL Magnesium (1.6-2.3) mg/dL AST 60 H (17-59) U/L ALT 56 H (4-49) U/L Total Protein 5.9 L (6.3-8.2) g/dL Lipase (23-300) U/L U Benzodiazepines Scrn Detected H (NotDetected) 05/19/22 05/19/22 05/19/22 Range/Units 06:02 06:02 06:02 Plt Count (150-450) k/uL Sodium (137-145) mmol/L Potassium (3.5-5.1) mmol/L Chloride (98-107) mmol/L Carbon Dioxide (22-30) mmol/L Glucose (74-99) mg/dL Calcium (8.4-10.2) mg/dL Magnesium 1.3 L (1.6-2.3) mg/dL AST 60 H (17-59) U/L ALT 57 H (4-49) U/L Total Protein (6.3-8.2) g/dL Lipase 499 H (23-300) U/L U Benzodiazepines Scrn (NotDetected)
[2022-05-19] MEDS: MAGNESIUM SULFATE-D5W PMX 1 GM in DEXTROSE/WATER 1 100ML.BAG IVPB SCH ×4 (10:54→17:55)
--- NOTE | 2022-05-19 12:40 | CT ---
EXAMINATION TYPE: CT abdomen pelvis wo con CT DLP: 548.8 mGycm, Automated exposure control for dose reduction was used. DATE OF EXAM: 05/19/2022 12:24 PM COMPARISON: CT abdomen pelvis most recent from 10/26/2012 . CLINICAL INDICATION:Male, 26 years old with history of persistent vomiting; TECHNIQUE: Standard CT of the abdomen and pelvis without IV or oral contrast. Lack of IV or oral co ntrast limits evaluation of solid and hollow organ viscera. Coronal and sagittal reformats were perfo rmed. FINDINGS: LOWER CHEST: Unremarkable ABDOMEN LIVER: Diffusely hypoattenuating parenchyma with increased focal hypoattenuation adjacent to the falc iform ligament. GALLBLADDER AND BILE DUCTS: Unremarkable. PANCREAS: Unremarkable. SPLEEN: Unremarkable. ADRENAL GLANDS: Unremarkable. KIDNEYS AND URETERS: No evidence of hydronephrosis or renal calculus. The ureters are unremarkable. PELVIS BLADDER: Unremarkable REPRODUCTIVE: Unremarkable. ABDOMEN & PELVIS STOMACH AND BOWEL: Small hiatal hernia, duodenum is unremarkable. No focal wall thickening or surroun ding inflammatory changes. The appendix is within normal limits. No evidence of bowel obstruction. PERITONEUM: No evidence of pneumoperitoneum or free fluid. VASCULATURE: No evidence of aortic aneurysm. MUSCULOSKELETAL: No acute osseous abnormalities LYMPH NODES: No gross evidence for lymphadenopathy. SOFT TISSUE/ABDOMINAL WALL: Unremarkable IMPRESSION: 1. No acute abdominal/pelvic process. 2. Moderate to severe hepatic steatosis. 3. Small hiatal hernia.
--- NOTE | 2022-05-19 12:42 | P.CN ---
Psychiatric Consult - . Consult date: 05/18/22 Consult:: IDENTIFYING DATA: This patient is a 26 yo male with past psychiatric history of severe alcohol use disorder. REASON FOR REFERRAL: Psychiatry was consulted for "suicidal". HISTORY OF PRESENT ILLNESS: The patient presented to the hospital on 05/18/2022 after being petitioned by police. Per chart, "Petition states "chance told me he wanted to kill himself as he attempted to grab the knife.". Patient has a history of alcohol abuse. Has a history of suicide attempts. Endorses drinking multiple fist this evening. Appears heavily intoxicated." His BAL at 4:15 am on 05/18/2022 was 408. I attempted to evaluate patient on 05/18/2022 afternoon. He was found sitting in his bed with a sitter at bedside. He has difficulty participating in assessment due to intractable vomiting. He appears physically ill and is still intoxicated, however is showing signs of alcohol withdrawal already. He reporting drinking 1- 1.5 pints of alcohol daily for years, but has increased significantly over the past several weeks. He is not displaying signs or symptoms of jay or psychosis. Due to still being intoxicated currently, assessment of suicidal thoughts will be deferred to tomorrow. He smokes tobacco daily. He also uses marijuana. PAST PSYCHIATRIC HISTORY: Patient has a a history of alcohol use disorder, mood disorder. Not able to obtain rest of psychiatric history at this time due patient's intractable vomiting. PAST MEDICAL HISTORY: Past Medical History: Hypertension Additional Past Medical History / Comment(s): Pt states he tried killing himself last october and has a large scar on his right upper neck. History of Any Multi-Drug Resistant Organisms: None Reported Past Surgical History: No Surgical Hx Reported Additional Past Surgical History / Comment(s): Patient had surgery to repair neck injury from suicide attempt Past Anesthesia/Blood Transfusion Reactions: No Reported Reaction Past Psychological History: Anxiety, Bipolar, Depression Smoking Status: Current every day smoker Past Alcohol Use History: Abuse, Daily Past Drug Use History: Marijuana ALLERGIES: as per EMR. CHEMICAL DEPENDENCY HISTORY: as per HPI. FAMILY PSYCHIATRIC/SUBSTANCE USE HISTORY: Family history of alcoholism (mother and others), bipolar (mother and brother), and cocaine use. SOCIAL HISTORY: His parents . His mother remarried and he has a brother from her second marriage and 8-year-old daughter from another relationship. He left school in the 10th grade and did not obtain a GED. He was convicted of assault with a dangerous weapon in 2019 and his probation including 6 months at the [employer]. He has multiple charges of assault and battery, domestic violence, assaulting a police captain, trespassing, disorderly conduct, and larceny. MENTAL STATUS EXAM: General Appearance: Patient appears to be stated age, is disheveled, vomiting, poor eye contact. Behavior: Patient is lying in bed without any agitated behavior, appears physically ill, is repeatedly vomiting. Speech: Patient's speech is fluent and non-pressured. Mood/Affect: Patient reports their mood is depressed, affect is congruent Suicidality/Homicidality: Not able to assess at this time due to still intoxicated at time of assessment. Perceptions: Not able to fully assess due to repeated vomiting. Though content/process: There is no evidence of any delusional thought content and thought process is linear. Memory and concentration: AOX3, grossly intact for the purposes of this session. Judgment and insight: Not able to fully assess due to repeated vomiting. IMPRESSIONS: Alcohol intoxication Alcohol use disorder, severe Alcohol withdrawal Unspecified mood disorder Tobacco use disorder PLAN: -Please DO NOT discharge patient without further discussion with psychiatry. Assessment of suicidal ideation cannot be accurately completed at this time due to his high BAL. -Would recommend the following medication changes/additions: Due to repeated vomiting, recommend Valium 10 mg IV Q6H for alcohol withdrawal, with hold paramaters (HOLD for SBP less than 100, DBP less than 60, HR less than 60 or oversedated), with plan to switch to oral benzodiazepine when he is able to tolerate po. -CIWA protocol with PRN Ativan for breakthrough alcohol withdrawal. Continue to monitor vital signs. -Continue 1:1 sitter for safety. -Cannot leave AMA at this time. Patient will need a petition and certification if attempting to leave AMA. -Communicated plan to patient's nurse -Will continue to follow along -Please contact with any questions. 05/18/22 13:03 05/19/22 12:11
[2022-05-19] MEDS: LORazepam 2 MG/ML INJ IV PRN ×3 (14:09→20:54)
--- NOTE | 2022-05-19 14:15 | P.PN ---
Progress Note - Text Progress Note Date: 05/19/22 Psychiatry follow-up note: Interval History: Patient was seen sitting up in bed with sitter and nurse at bedside. He was directable and agreeable to speak with this writer technical publications. He complains of alcohol withdrawal symptoms (shaking, feeling unsteady when standing up) and nurse if a bout to give a PRN dose of Ativan per [facility] protocol. He was switched started on IV Valium yesterday for alcohol withdrawal due to repeated vomiting, and was switched to Lirbium 25 mg QID overnight. He reports he is still vomiting today but is able to keep down the oral Librium. Regarding his mood, he denies feeling depressed currently but does report feeling depressed when drinking heavily over the week prior to admission. At this time, patient denies any suicidal or homical ideations, intent or plan. Patient denies any auditory, visual hallucinations and denies any paranoia or delusions. He reports several life stressors, including will be "homeless" after this discharge. He has made prior unsuccessful attempts to quit drinking in the past. He reports he was drinking 2 fifths prior to admission. We discussed residential substance abuse treatment such as [facility], and he is willing to consider this but is also considered about his insurance copay. Mental Status Exam: General Appearance: Patient appears to be stated age, is showered and dressed in hospital gown, hygiene improved. Behavior: Patient is calmly seated without any agitated behavior. Mild tremors observed from alcohol withdrawal. Speech: Patient's speech is fluent and non-pressured. Mood/Affect: Mood is improving mildly, affect is congruent and constricted. Suicidality/Homicidality: Patient denies having any suicidal or homicidal ideation intent or plan. Perceptions: Patient denies any visual hallucinations and denies any auditory hallucinations. Though content/process: There is no evidence of any delusional thought content and thought process is linear and goal-directed. Memory and concentration: AOX3, grossly intact for the purposes of this session Judgment and insight: Improving mildly Assessment Unspecified depressive disorder, r/o alcohol-induced depressive disorder with onset during intoxication Alcohol intoxication - resolved Alcohol use disorder, severe Alcohol withdrawal Tobacco use disorder Plan: -At this time patient DOES NOT meet criteria for inpatient psychiatric admission. -Would recommend the following medication changes/additions: -Continue Librium as ordered with [facility] protocol with PRN Ativan for breakthrough alcohol withdrawal. Continue to monitor vital signs. -Can discontinue 1:1 sitter for safety at this time. Continue to reassess safety and reinstate sitter if safety concerns arise. -SOCIAL WORK - please provide patient with list of contact information for residential substance abuse treatment centers (such as [facility]) so patient can call for an intake assessment. -SOCIAL WORK - please also provide patient with list of mental health treatment resources. -Communicated plan to patient's nurse -Psychiatry will sign off. -Please contact with any questions.
[2022-05-19 15:44] LABS: Magnesium 2.2 mg/dL (1.6-2.3); Potassium 2.9 mmol/L (3.5-5.1)
[2022-05-20] MEDS: LACTATED RINGERS 1,000 ML IV SCH ×2 (04:47→13:24)
[2022-05-20] MEDS: HEPARIN SODIUM,PORCINE/PF 5,000 UNIT/0.5 ML SYRINGE SQ SCH ×3 (07:56→21:15)
[2022-05-20] MEDS: chlordiazePOXIDE 25 MG CAP PO SCH ×3 (07:56→21:03)
[2022-05-20] MEDS: FOLIC ACID 1 MG TAB PO SCH (07:56)
[2022-05-20] MEDS: THIAMINE 100 MG TAB PO SCH ×2 (07:56→16:29)
[2022-05-20] MEDS: PANTOPRAZOLE 40 MG/10 ML VIAL IVP SCH ×2 (07:56→21:02)
--- NOTE | 2022-05-20 09:13 | P.PN ---
Subjective Progress Note Date: 05/20/22 Principal diagnosis: suicidal ideation Patient is a 26 old male with a history of alcohol dependency, tobacco dependency, and depression who was brought in by police after being petitioned for suicidal ideation. In the emergency department he underwent an extensive evaluation. Vital signs within normal limits. Laboratory analysis was remarkable for sodium 134, potassium 3.3, and serum alcohol 408. He was placed in observation as he could not be evaluated by mental health due to his intoxication. He developed mild withhdwal symptoms, but was having significant vomiting. KUB was obtained and was unremarkable. CT abd and pelvis was unremarkable. Patient seen and examined at bedside. He reports that his vomiting is much better than yesterday but nausea still not resolved. He is still feeling slightly fidgety. He denies any auditory or visual hallucinations. He states his diaphoresis better. General: nontoxic, no distress, appears at stated age Derm: warm, dry Head: atraumatic, normocephalic, symmetric Eyes: EOMI, no lid lag, anicteric sclera Mouth: no lip lesion, mucus membranes moist Cardiovascular: S1S2 reg, no murmur, positive posterior tibial pulse bilateral, Lungs: Decreased BS bilateral, no rhonchi, no rales , no accessory muscle use Abdominal: soft, + tender to palpation diffusely, no guarding, no appreciable organomegaly Ext: no gross muscle atrophy, no edema, no contractures Neuro: CN II-XI grossly intact, no focal neuro deficits Psych: Alert, oriented, appropriate affect Assessment/Plan: Alcohol withdrawal Alcohol dependency - CIWA - Thiamine and folic acid - Scheduled Librium Intractable vomiting - CT abdomen and pelvis without acute process - KUB without significant abnormalities - antiemetics Alcoholic gastritis - PPI Hypokalemia and hypomagnesemia - await recheck Suicidal ideation Depression - Psych recommendations Tobacco abuse - cessation - replacement DVT prophylaxis: SCDs Discussed with: patient, nursing Anticipated discharge date: in 1-[address]: home A total of 35 minutes was spent on the care of this complex patient more than 50% of the time was spent in counseling and care coordination. Objective - Vital Signs Vital signs: Vital Signs Temp 98.2 F 05/20/22 07:00 Pulse 97 05/20/22 07:00 Resp 18 05/20/22 07:00 BP 110/64 05/20/22 07:00 Pulse Ox 98 05/20/22 07:00 FiO2 Intake & Output 05/19/22 05/20/22 05/20/22 18:59 06:59 18:59 Intake Total 354 Balance 354 Intake: Oral 354 Other: Voiding Method Toilet # Voids 1 2 - Labs CBC & Chem 7: 05/19/22 06:02 05/19/22 15:17 Labs: Abnormal Lab Results - Last 24 Hours (Table) 05/19/22 05/19/22 05/19/22 Range/Units 06:02 06:02 06:02 Potassium (3.5-5.1) mmol/L Magnesium 1.3 L (1.6-2.3) mg/dL AST 60 H (17-59) U/L ALT 57 H (4-49) U/L Lipase 499 H (23-300) U/L 05/19/22 Range/Units 15:17 Potassium 2.9 L (3.5-5.1) mmol/L Magnesium (1.6-2.3) mg/dL AST (17-59) U/L ALT (4-49) U/L Lipase (23-300) U/L
[2022-05-20 09:55] LABS: Magnesium 2.7 mg/dL (1.5-2.4)
[2022-05-20 10:20] LABS: African American GFR (CKD) 142.2 (60.0-200.0); Albumin 3.7 g/dL (3.8-4.9); Albumin/Globulin Ratio 1.96 (1.60-3.17); Anion Gap 10.7 mmol/L (10.00-18.00); BUN/Creat Ratio 8.58 Ratio (12.00-20.00); Blood Urea Nitrogen 6.8 mg/dL (9.0-27.0); Calcium 8.7 mg/dL (8.7-10.3); Carbon Dioxide 32.6 mmol/L (20.0-27.5); Globulin 1.9 g/dL (1.6-3.3); Non-African American GFR(CKD) 122.7 (60.0-200.0); Potassium 2.8 mmol/L (3.5-5.5); Total Bilirubin 0.8 mg/dL (0.30-1.20); Total Protein 5.5 g/dL (6.2-8.2)
[2022-05-20] MEDS ORDERED: POTASSIUM CHLORIDE ER 20 MEQ TAB.ER PO STA (11:52)
[2022-05-20] MEDS: POTASSIUM CHLORIDE 10 MEQ in WATER FOR INJECTION 1 100ML.BAG IVPB SCH ×4 (13:14→19:10)
[2022-05-20] MEDS: LORazepam 2 MG/ML INJ IV PRN ×3 (13:14→21:15)
[2022-05-20] MEDS: NICOTINE 21MG/24HR PATCH TRANSDERM SCH (13:19)
[2022-05-20] MEDS: SODIUM CHLORIDE 0.9% 1,000 ML IV SCH ×2 (13:19→21:15)
[2022-05-20] MEDS ORDERED: LOPERAMIDE 2 MG CAP PO PRN (17:11)
[2022-05-20] MEDS: PROCHLORPERAZINE INJ 10 MG/2 ML VIAL IVP PRN (21:02)
[2022-05-21] MEDS: LACTATED RINGERS 1,000 ML IV SCH (01:52)
[2022-05-21] MEDS: LORazepam 2 MG/ML INJ IV PRN ×2 (04:21→08:47)
[2022-05-21 07:06] LABS: ALT 86 U/L (4-49); AST 97 U/L (17-59); African American GFR (CKD) >90 (>60 ml/min/1.73 sqM); Albumin 3.1 g/dL (3.5-5.0); Albumin/Globulin Ratio 1.3; Alkaline Phosphatase 54 U/L (38-126); Anion Gap 8 mmol/L; Blood Urea Nitrogen 5 mg/dL (9-20); Calcium 8.2 mg/dL (8.4-10.2); Carbon Dioxide 28 mmol/L (22-30); Chloride 100 mmol/L (98-107); Globulin 2.3 g/dL; Glucose 113 mg/dL (74-99); Magnesium 1.7 mg/dL (1.6-2.3); Non-African American GFR(CKD) >90 (>60 ml/min/1.73 sqM); Potassium 3.3 mmol/L (3.5-5.1); Sodium 136 mmol/L (137-145); Total Bilirubin 0.3 mg/dL (0.2-1.3); Total Protein 5.4 g/dL (6.3-8.2)
[2022-05-21] MEDS: THIAMINE 100 MG TAB PO SCH ×2 (08:10→19:46)
[2022-05-21] MEDS: HEPARIN SODIUM,PORCINE/PF 5,000 UNIT/0.5 ML SYRINGE SQ SCH ×3 (08:10→21:23)
[2022-05-21] MEDS: chlordiazePOXIDE 25 MG CAP PO SCH ×3 (08:10→21:22)
[2022-05-21] MEDS: NICOTINE 21MG/24HR PATCH TRANSDERM SCH (08:11)
[2022-05-21] MEDS: PANTOPRAZOLE 40 MG/10 ML VIAL IVP SCH (08:11)
[2022-05-21] MEDS: FOLIC ACID 1 MG TAB PO SCH (08:11)
[2022-05-21] MEDS ORDERED: Magnesium Replacement Protocol 1 EACH MISC MISCELLANE PRN (10:50)
[2022-05-21] MEDS ORDERED: Potassium Replacement Protocol 1 EACH MISC MISCELLANE PRN (10:50)
--- NOTE | 2022-05-21 10:52 | P.PN ---
Subjective Progress Note Date: 05/21/22 This is a 26-year-old male who was recently brought to the emergency department by the police being petitioned for suicidal ideation also a significant alcohol abuse in the outpatient setting. Patient was maintained on CIWA protocol and also initiated on Librium taper. Patient was having some withdrawal symptoms with significant vomiting and was being evaluated by sound physicians although is a Dr. Lopez patient and transition to inpatient status and we are resuming services at this time. Patient had CT abdomen which was unremarkable and patient continues to require IV Ativan, requesting IV Ativan. Social work consulted for possible alcohol rehab. Patient will continue on Librium taper and wean Ativan as tolerated. Potassium is found to be 3.3 and magnesium is 1.7 and will replace per protocol. Review of systems: Constitutional: No reports of fatigue, fever, or chills, reports anxiety Cardiovascular: No reports of chest pain or palpitations Respiratory: No reports of shortness of breath or cough GI: No reports of nausea, vomiting, or diarrhea : No reports of dysuria or retention Neurovascular: reports of generalized weakness All medications have been reviewed Gen: This is a 26-year-old male awake, alert and oriented 3, thin built HEENT: Head is atraumatic, normocephalic. Pupils equal, round. Sclerae is anicteric. NECK: Supple. No JVD. No lymphadenopathy. No thyromegaly. LUNGS: Clear to auscultation. No wheezes or rhonchi. No intercostal retractions. HEART: Regular rate and rhythm. No murmur. ABDOMEN: Soft. Bowel sounds are present. No masses. No tenderness. EXTREMITIES: No pedal edema. No calf tenderness. NEUROLOGICAL: Patient is awake, alert and oriented x3. Cranial nerves 2 through 12 are grossly intact. Assessment: Alcohol withdrawal with early delirium tremens Continued ongoing nicotine and alcohol abuse Intractable vomiting most likely secondary to alcohol withdrawal Alcoholic gastritis Hypokalemia [place] hypomagnesemia Suicidal ideation DVT prophylaxis GI prophylaxis next line full code Plan: Recommend continue CIWA protocol along with Librium taper and will have rn social services evaluate the patient for possible discharge planning for long-term alcohol rehab. Encouraged increase activity as tolerated along with encouraging oral intake. Patient has been seen and evaluated by psychiatry and cleared for discharge with close outpatient follow-up. Potassium is 3.3 today and will replace and magnesium is also 1.7 and will give a dose of magnesium and follow- up with labs. Will wean Ativan use as well and transition to oral. Possible discharge in 24 hours The impression and plan of care has been dictated by Laura Griffin, Nurse Practitioner as directed. Dr. Brigitte MD I have performed a history and examination and MDM of this patient, discussed the same with the dictator, and agree with the dictator's assessment and plan as written ,documented as a scribe. Based on total visit time, I have performed more than 50% of the visit. Objective - Vital Signs Vital signs: Vital Signs Temp 98.5 F 05/21/22 07:00 Pulse 84 05/21/22 07:00 Resp 18 05/21/22 07:00 BP 134/82 05/21/22 07:00 Pulse Ox 100 05/21/22 07:00 FiO2 Intake & Output 05/20/22 05/21/22 05/21/22 18:59 06:59 18:59 Intake Total 222 240 Balance 222 240 Intake: Oral 222 240 Other: Voiding Method Toilet Toilet # Voids 3 3 # Bowel Movements 1 - Labs CBC & Chem 7: 05/19/22 06:02 05/21/22 06:30 Labs: Abnormal Lab Results - Last 24 Hours (Table) 05/20/22 05/21/22 Range/Units 05:58 06:30 Plt Count Comment DECREASED A Sodium 136 L (137-145) mmol/L Potassium 3.3 L (3.5-5.1) mmol/L BUN 5 L (9-20) mg/dL Glucose 113 H (74-99) mg/dL Calcium 8.2 L (8.4-10.2) mg/dL AST 97 H (17-59) U/L ALT 86 H (4-49) U/L Total Protein 5.4 L (6.3-8.2) g/dL Albumin 3.1 L (3.5-5.0) g/dL
[2022-05-21] MEDS: POTASSIUM CHLORIDE ER 20 MEQ TAB.ER PO SCH ×4 (12:22→21:20)
[2022-05-21] MEDS: MAGNESIUM SULFATE-D5W PMX 1 GM in DEXTROSE/WATER 1 100ML.BAG IVPB SCH ×2 (12:22→19:46)
[2022-05-21] MEDS: PANTOPRAZOLE 40 MG TABLET PO SCH (19:46)
[2022-05-21] MEDS: PROCHLORPERAZINE INJ 10 MG/2 ML VIAL IVP PRN (22:36)
[2022-05-22] MEDS: LORazepam 1 MG TAB PO PRN ×2 (02:34→09:42)
[2022-05-22 08:15] VITALS: BP 146/88; PULSE 89; RESP 18; TEMP 98
[2022-05-22] MEDS: THIAMINE 100 MG TAB PO SCH (09:31)
[2022-05-22] MEDS: PANTOPRAZOLE 40 MG TABLET PO SCH (09:31)
[2022-05-22] MEDS: chlordiazePOXIDE 25 MG CAP PO SCH (09:31)
[2022-05-22] MEDS: FOLIC ACID 1 MG TAB PO SCH (09:32)
[2022-05-22] MEDS: NICOTINE 21MG/24HR PATCH TRANSDERM SCH (09:32)
[2022-05-22] MEDS: HEPARIN SODIUM,PORCINE/PF 5,000 UNIT/0.5 ML SYRINGE SQ SCH (09:32)
[2022-05-23 10:12] LABS: Basophils % (A) 0.2; Eosinophils % (A) 0.5; Lymphocytes % (A) 20.1; Monocytes % (A) 8.6; Neutrophils % (A) 70.1
[2022-05-23 10:15] LABS: HGB 12.3; WBC 4.17
[2022-05-23 10:16] LABS: HCT 35.2; MCH 32.4; MCV 92.6
[2022-05-23 10:17] LABS: MCHC 34.9; Platelet Count 100
[2022-05-23 10:18] LABS: Lymphocytes # (A) 0.84; Neutrophils # (A) 2.92
[2022-05-23 10:19] LABS: Basophils # (A) 0.01; Eosinophils # (A) 0.02; Monocytes # (A) 0.36
[2022-05-23 10:22] LABS: RDW 13.6
--- NOTE | 2022-05-23 12:16 | P.DS ---
Providers Date of admission: 05/19/22 17:02 Expected date of discharge: 05/22/22 Attending physician: Phuc Santana Consults: 05/18/22 06:25 Consult Physician Routine Consulting Provider: Howie Madsen Consult Reason/Comments: sucidial Do you want consulting provider notified?: Yes Primary care physician: Jessica Magallanes Hospital Course: Final diagnosis Alcohol withdrawal with early delirium tremens Continued ongoing nicotine and alcohol abuse Intractable vomiting most likely secondary to alcohol withdrawal Alcoholic gastritis Hypokalemia, improved hypomagnesemia, improved Suicidal ideation and has been evaluated by psychiatry and cleared DVT prophylaxis GI prophylaxis full code Discharge disposition Patient is being discharged in a stable condition with guarded prognosis to home. Patient will follow-up with Dr. Lopez in the outpatient setting upon discharge. Patient is to follow-up with community mental health and possible [facility] for alcohol rehab as discussed and resources were provided. Patient will continue on a short Librium taper on discharge. Total time taken is greater than 35 minutes. Hospital course This is a 26-year-old male who was recently admitted with alcohol intoxication and was petitioned by the police with suicidal ideations and maintained on CIWA protocol. Patient was evaluated by psychiatry recommending outpatient follow- up. Patient continued to request IV Ativan and was not presently having withdrawal symptoms. Patient reported some abdominal pain and CT of the abdomen was done which was unremarkable. Patient this morning was reporting tolerance and diet with no further abdominal pain or nausea or vomiting noted. Patient had been maintained on oral Ativan along with Librium taper. Patient will continue Librium taper on discharge. Strongly encouraged the patient to follow- up with primary care provider and possible alcohol rehab and avoid any alcohol intake. Patient reports he was not suicidal and ready to be discharged. Currently no reports of chest pain, shortness of breath, or palpitations. Patient is afebrile. No reports of nausea or vomiting and patient is tolerating diet. Patient will be discharged home today. Extremely guarded prognosis as patient is high risk for readmissions and has had multiple hospitalizations for this and noncompliance with medications. Patient continues to drink and has poor social support outpatient. Physical exam: Gen: This is a 26-year-old male awake, alert and oriented 3, well-developed, well-nourished HEENT: Head is atraumatic, normocephalic. Pupils equal, round. Sclerae is anicteric. NECK: Supple. No JVD. No lymphadenopathy. No thyromegaly. LUNGS: Clear to auscultation. No wheezes or rhonchi. No intercostal retractions. HEART: Regular rate and rhythm. No murmur. ABDOMEN: Soft. Bowel sounds are present. No masses. No tenderness. EXTREMITIES: No pedal edema. No calf tenderness. NEUROLOGICAL: Patient is awake, alert and oriented x3. Cranial nerves 2 through 12 are grossly intact. Please refer to medication reconciliation sheet for a list of medications. The impression and plan of care has been dictated by Laura Griffin, Nurse Practitioner as directed. Dr. Brigitte MD I have performed a history and examination and MDM of this patient, discussed the same with the dictator, and agree with the dictator's assessment and plan as written ,documented as a scribe. Based on total visit time, I have performed more than 50% of the visit. Patient Condition at Discharge: Stable Plan - Discharge Summary Discharge Rx Participant: Yes New Discharge Prescriptions: Continue Pantoprazole Sodium [Protonix] 40 mg PO DAILY #15 tab Thiamine [Vitamin B-1] 100 mg PO BID-W/MEALS 30 Days #60 tab Sertraline [Zoloft] 50 mg PO HS Acetaminophen Tab [Tylenol] 650 mg PO Q6HR PRN tab PRN Reason: Fever And/ Or Pain hydrOXYzine HCL [Atarax] 10 mg PO BID PRN PRN Reason: Anxiety busPIRone HCl [Buspar] 5 - 10 mg PO TID PRN PRN Reason: Anxiety Discharge Medication List Acetaminophen Tab [Tylenol] 650 mg PO Q6HR PRN tab 04/20/22 [Rx] Pantoprazole Sodium [Protonix] 40 mg PO DAILY #15 tab 04/20/22 [Rx] Thiamine [Vitamin B-1] 100 mg PO BID-W/MEALS 30 Days #60 tab 04/20/22 [Rx] Sertraline [Zoloft] 50 mg PO HS 05/18/22 [History] busPIRone HCl [Buspar] 5 - 10 mg PO TID PRN 05/18/22 [History] hydrOXYzine HCL [Atarax] 10 mg PO BID PRN 05/18/22 [History] Follow up Appointment(s)/Referral(s): Sona Lopez MD [Primary Care Provider] - 1 Week Activity/Diet/Wound Care/Special Instructions: Activity: Limited until follow-up Follow-up with primary care provider on discharge Continue taking medications as prescribed Avoid tobacco and alcohol use Follow-up with community mental health and AA meetings along with outpatient resources for alcohol rehab Diet: Continue current diet Special Instructions: [address] [id number] Discharge/Stand Alone Forms: AA Meetings [facility], Who Do I Call?, Community Resources, Outpatient Counseling, In Substance Abuse Facilities Discharge Disposition: HOME SELF-CARE
== END 2022-05-22 12:06 | disposition home or self-care (01) | DRG 897 ==
LOC: EC 01:59 → 6NMEDSUR 06:25 → OBSVTOIN 05-19 17:02
PROVIDERS: ADMIT Internal Medicine; ATTEND Internal Medicine
PROC: HZ2ZZZZ Detoxification Services for Substance Abuse Treatment (ICD-10-PCS; principal; 2022-05-18)
DX: F10.229 Alcohol dependence with intoxication, unspecified (principal); R45.851 Suicidal ideations; F10.231 Alcohol dependence with withdrawal delirium; F31.9 Bipolar disorder, unspecified; K29.20 Alcoholic gastritis without bleeding; I10 Essential (primary) hypertension; F39 Unspecified mood [affective] disorder; F41.9 Anxiety disorder, unspecified; F17.210 Nicotine dependence, cigarettes, uncomplicated; Y90.8 Blood alcohol level of 240 mg/100 ml or more; K02.9 Dental caries, unspecified; K04.7 Periapical abscess without sinus; L98.9 Disorder of the skin and subcutaneous tissue, unspecified; E83.42 Hypomagnesemia; E87.6 Hypokalemia; Z91.51 Personal history of suicidal behavior; Z79.899 Other long term (current) drug therapy; Z98.890 Other specified postprocedural states; Z91.14 Patient's other noncompliance with medication regimen; Z63.8 Other specified problems related to primary support group; Z59.811 Housing instability, housed, with risk of homelessness; Z81.1 Family history of alcohol abuse and dependence; Z81.8 Family history of other mental and behavioral disorders; Z81.3 Family history of other psychoactive substance abuse and dependence; Z82.5 Family history of asthma and other chronic lower respiratory diseases
CPT/HCPCS: 36415; 74019; 74176; 80048; 80053; 80306; 80320; 82075; 82247; 83690; 83735; 84132; 84450; 84460; 85025; 85027; 96372; 96374; 96375; 99285

== ENCOUNTER 2022-05-23 10:40 | Inpatient (IN) | payer BC ==
--- NOTE | 2022-05-23 11:02 | ED ---
General Adult HPI - General Chief complaint: Overdose Stated complaint: mental health Time Seen by Provider: 05/23/22 10:45 Source: patient, EMS, RN notes reviewed, old records reviewed Mode of arrival: EMS Limitations: altered mental status - History of Present Illness Initial comments: This is a 26-year-old male who presents emergency Department with police because he stated to them that he drank a bunch of liquor and took about 1025 mg Librium pills and maybe some other medications. Patient states she just wanted to feel better. Patient does not admit to suicidal ideations. Patient denies any pain. Patient denies headache patient denies chest pain patient denies any difficulty breathing shortness of breath per patient denies abdominal pain. - Related Data Home Medications Medication Instructions Recorded Confirmed Sertraline [Zoloft] 50 mg PO HS 05/18/22 05/23/22 busPIRone HCl [Buspar] 5 - 10 mg PO TID PRN 05/18/22 05/23/22 hydrOXYzine HCL [Atarax] 10 mg PO BID PRN 05/18/22 05/23/22 Previous Rx's Medication Instructions Recorded Acetaminophen Tab [Tylenol] 650 mg PO Q6HR PRN tab 04/20/22 Pantoprazole Sodium [Protonix] 40 mg PO DAILY #15 tab 04/20/22 Thiamine [Vitamin B-1] 100 mg PO BID-W/MEALS 30 Days #60 04/20/22 tab Allergies Allergy/AdvReac Type Severity Reaction Status Date / Time No Known Allergies Allergy Verified 05/18/22 10:35 Review of Systems ROS Statement: Those systems with pertinent positive or pertinent negative responses have been documented in the HPI. ROS Other: All systems not noted in ROS Statement are negative. Past Medical History Past Medical History: Hypertension Additional Past Medical History / Comment(s): Alcohol withdrawal seizure. Hypon atremia. Alcoholic gastritis. Dental abscess. Dental carries History of Any Multi-Drug Resistant Organisms: None Reported Past Surgical History: No Surgical Hx Reported Additional Past Surgical History / Comment(s): Patient had surgery to repair neck injury from suicide attempt Past Anesthesia/Blood Transfusion Reactions: No Reported Reaction Past Psychological History: Anxiety, Bipolar, Depression Smoking Status: Current every day smoker Past Alcohol Use History: Abuse, Daily Past Drug Use History: Marijuana - Past Family History Mother Family Medical History: COPD Additional Family Medical History / Comment(s): History of ETOH. Hx of Bipolar (does not take medication). Hx. also of Crack Cocaine abuse. Father Additional Family Medical History / Comment(s): History of alcohol abuse General Exam - General Exam Comments Initial Comments: GENERAL: Patient is well-developed and well-nourished. Patient is nontoxic and well- hydrated and appears intoxicated.. ENT: Neck is soft and supple. No significant lymphadenopathy is noted. Oropharynx is clear. Moist mucous membranes. Neck has full range of motion without eliciting any pain. EYES: The sclera were anicteric and conjunctiva were pink and moist. Extraocular movements were intact and pupils were equal round and reactive to light. Eyelids were unremarkable. PULMONARY: Unlabored respirations. Good breath sounds bilaterally. No audible rales rhonchi or wheezing was noted. CARDIOVASCULAR: There is a regular rate and rhythm without any murmurs gallops or rubs. ABDOMEN: Soft and nontender with normal bowel sounds. SKIN: Skin is clear with no lesions or rashes and otherwise unremarkable. NEUROLOGIC: Patient is alert and oriented he appears to know who he is and where he is whether he knows the date or not is difficult to assess since he doesn't answer all questions. Cranial nerves II through XII are grossly intact. Motor and sensory are also intact. Normal speech, volume and content. Symmetrical smile. MUSCULOSKELETAL: Normal extremities with adequate strength and full range of motion. LYMPHATICS: No significant lymphadenopathy is noted PSYCHIATRIC: Patient appears intoxicated so appropriate psychiatric exam cannot be done until he does not admit to being suicidal he states he just overdosed to make himself feel better Limitations: altered mental status Course Vital Signs 05/23/22 10:42 Temperature 97.8 F Pulse Rate 109 H Respiratory 16 Rate Blood Pressure 128/82 O2 Sat by Pulse 96 Oximetry Medical Decision Making - Medical Decision Making EKG shows sinus rhythm at 107 bpm QRS is 99 QT interval 3:30 QTC is 390. EKG shows no ST segment elevation or depression. - Lab Data Result diagrams: 05/23/22 10:54 05/23/22 10:54 Lab Results 05/23/22 05/23/22 05/23/22 Range/Units 10:54 10:54 10:54 WBC 9.7 (3.8-10.6) k/uL RBC 4.56 (4.30-5.90) m/uL Hgb 14.7 (13.0-17.5) gm/dL Hct 45.0 (39.0-53.0) % MCV 98.6 (80.0-100.0) fL MCH 32.2 (25.0-35.0) pg MCHC 32.6 (31.0-37.0) g/dL RDW 14.6 (11.5-15.5) % Plt Count 154 (150-450) k/uL MPV 8.4 Sodium 143 (137-145) mmol/L Potassium 3.2 L (3.5-5.1) mmol/L Chloride 109 H (98-107) mmol/L Carbon Dioxide 16 L (22-30) mmol/L Anion Gap 18 mmol/L BUN 3 L (9-20) mg/dL Creatinine 0.71 (0.66-1.25) mg/dL Est GFR (CKD-EPI)AfAm >90 (>60 ml/min/1.73 sqM) Est GFR (CKD-EPI)NonAf >90 (>60 ml/min/1.73 sqM) Glucose 102 H (74-99) mg/dL Calcium 8.6 (8.4-10.2) mg/dL Total Bilirubin 0.2 (0.2-1.3) mg/dL AST 121 H (17-59) U/L ALT 144 H (4-49) U/L Alkaline Phosphatase 64 (38-126) U/L Total Protein 6.6 (6.3-8.2) g/dL Albumin 4.1 (3.5-5.0) g/dL Salicylates <1.0 mg/dL Urine Opiates Screen Not Detected (NotDetected) Ur Oxycodone Screen Not Detected (NotDetected) Urine Methadone Screen Not Detected (NotDetected) Ur Propoxyphene Screen Not Detected (NotDetected) Acetaminophen <10.0 ug/mL Ur Barbiturates Screen Not Detected (NotDetected) U Tricyclic Antidepress Not Detected (NotDetected) Ur Phencyclidine Scrn Not Detected (NotDetected) Ur Amphetamines Screen Not Detected (NotDetected) U Methamphetamines Scrn Not Detected (NotDetected) U Benzodiazepines Scrn Detected H (NotDetected) Urine Cocaine Screen Not Detected (NotDetected) U Marijuana (THC) Screen Not Detected (NotDetected) Serum Alcohol 336 H* mg/dL Disposition Clinical Impression: Alcohol intoxication, Suicidal behavior, Drug overdose Disposition: ADMITTED IP TO THIS HOSP Referrals: Sona Lopez MD [Primary Care Provider] - 1-2 days Time of Disposition: 12:56
[2022-05-23 11:54] LABS: HGB 14.7 gm/dL (13.0-17.5); MCH 32.2 pg (25.0-35.0); MCHC 32.6 g/dL (31.0-37.0); MCV 98.6 fL (80.0-100.0); Mean Platelet Volume 8.4; Platelet Count 154 k/uL (150-450); RBC 4.56 m/uL (4.30-5.90); RDW 14.6 % (11.5-15.5); WBC 9.7 k/uL (3.8-10.6)
[2022-05-23 12:08] LABS: ALT 144 U/L (4-49); AST 121 U/L (17-59); Acetaminophen <10.0 ug/mL; African American GFR (CKD) >90 (>60 ml/min/1.73 sqM); Albumin 4.1 g/dL (3.5-5.0); Alkaline Phosphatase 64 U/L (38-126); Anion Gap 18 mmol/L; Blood Urea Nitrogen 3 mg/dL (9-20); Calcium 8.6 mg/dL (8.4-10.2); Carbon Dioxide 16 mmol/L (22-30); Chloride 109 mmol/L (98-107); Glucose 102 mg/dL (74-99); Non-African American GFR(CKD) >90 (>60 ml/min/1.73 sqM); Potassium 3.2 mmol/L (3.5-5.1); Salicylate <1.0 mg/dL; Sodium 143 mmol/L (137-145); Total Bilirubin 0.2 mg/dL (0.2-1.3); Total Protein 6.6 g/dL (6.3-8.2)
[2022-05-23 12:23] LABS: Amphetamine Screen,Urine Not Detected (NotDetected); Barbiturate Screen,Urine Not Detected (NotDetected); Benzodiazepines Screen,Urine Detected (NotDetected); Cocaine Screen,Urine Not Detected (NotDetected); Methadone Screen, Urine Not Detected (NotDetected); Opiate Screen,Urine Not Detected (NotDetected); Oxycodone Screen, Urine Not Detected (NotDetected); Phencyclidine Screen,Urine Not Detected (NotDetected); Tricyclic Antidepressant,Urine Not Detected (NotDetected); Urn Cannabinoid Scrn Not Detected (NotDetected)
[2022-05-23 12:26] LABS: Alcohol 336 mg/dL
[2022-05-23] MEDS ORDERED: SODIUM CHLORIDE 0.9% 1,000 ML IV ONE (12:56)
[2022-05-23] MEDS ORDERED: LORazepam 2 MG/ML INJ IV PRN ×3 (12:57)
[2022-05-23] MEDS ORDERED: THIAMINE 100 MG/ML 2 ML VIAL IM STA (12:57)
[2022-05-23 13:07] LABS: Eosinophils # (M) 0.49 k/uL (0-0.7); Lymphocytes # (M) 2.62 k/uL (1.0-4.8); Monocytes # (M) 1.75 k/uL (0-1.0); Neutrophils # (M) 4.95 k/uL (1.3-7.7); Neutrophils % (M) 51 %; Nucleated Red Blood Cells 0 /100 WBC (0-0); Total Cells Counted 200
[2022-05-23 13:08] LABS: RBC Morphology Normal
[2022-05-23] MEDS ORDERED: hydrOXYzine HCL 10 MG TAB PO PRN (14:44)
[2022-05-23] MEDS ORDERED: ACETAMINOPHEN TAB 325 MG TAB PO PRN (14:44)
[2022-05-23] MEDS ORDERED: PANTOPRAZOLE 40 MG TABLET PO SCH (14:45)
[2022-05-23] MEDS ORDERED: Potassium Replacement Protocol 1 EACH MISC MISCELLANE PRN (14:46)
[2022-05-23] MEDS ORDERED: POTASSIUM CHLORIDE 10 MEQ in WATER FOR INJECTION 1 100ML.BAG IVPB SCH (15:00)
[2022-05-23] MEDS ORDERED: POTASSIUM CHLORIDE ER 20 MEQ TAB.ER PO STA (15:17)
--- NOTE | 2022-05-23 15:31 | P.HPIM ---
History of Present Illness H&P Date: 05/23/22 This is a 26-year-old male who was recently discharged for alcohol intoxication with suicidal ideation and petition by the police and was recently discharged home on a Librium taper after being evaluated by psychiatry and cleared for discharge. Apparently patient reports on exam that he went home and took his Librium and continued to drink a fifth of vodka and presented to the ED with an alcohol level of 336. Patient's UDS was also positive for benzos although patient has been hospitalized yesterday on CIWA protocol. Patient has been started on CIWA protocol with Ativan and reporting some pain with swallowing and reports his mother told him to have it evaluated while in the hospital. Patient has been asked with sitter at the bedside multiple times if suicidal and he repeatedly reports no be is not suicidal and did not intentionally take his Librium and alcohol to kill himself. Patient was petitioned by a correctional program officer in the community. Psychiatry has been consulted by Dr. Wiley in the ER for suicidal behavior, but once again patient is alert and oriented 3 and denying any suicidal thoughts of wanting to harm himself or others. Labs in the ED reveal a WBC of 9.7, hemoglobin is 14.7, platelets are 154, sodium 143, potassium 3.2, creatinine 0.71, AST 121, ALT 144. EKG showing sinus tachycardia. Will initiate Protonix and change the diet to clear liquids and will consult general surgery for evaluation of possible esophagitis. Review Of Systems: Constitutional: No fever, no chills, no night sweats. No weight change. No weakness, fatigue or lethargy. No daytime sleepiness. EENT: No headache. No blurred vision or double vision, no loss of vision. No loss of Hearing, no ringing in the ears, no dizziness. No nasal drainage or congestion. No epistaxis. No sore throat. Lungs: No shortness of breath, cough, no sputum production. No wheezing. Cardiovascular: No chest pain, no lower extremity edema. No palpitations. No paroxysmal nocturnal dyspnea. No orthopnea. No lightheadedness or dizziness. No syncopal episodes. Abdominal: No abdominal pain. No nausea, vomiting. No diarrhea. No constipation. No bloody or tarry stools.. No loss of appetite. Reports pain with swallowing in his esophagus Genitourinary: No dysuria, increased frequency, urgency. No urinary retention. Musculoskeletal: No myalgias. No muscle weakness, no gait dysfunction, no frequent falls. No back pain. No neck pain. Integumentary: No wounds, no lesions. No rash or pruritus. No unusual bruising. No change in hair or nails. Neurologic: No aphasia. No facial droop. No change in mentation. No head injury. No headache. No paralysis. No paresthesia. Psychiatric: No depression. No anxiety. No mood swings. Patient reports intoxication and denies any suicidal ideation or thoughts of wanting to harm himself Endocrine: No abnormal blood sugars. No weight change. No excessive sweating or thirst. No cold intolerance. PHYSICAL EXAMINATION: GENERAL: The patient is alert and oriented x4, Well developed, well nourished. Intoxicated although able to sit up and have full conversation and answer every question appropriately HEENT: Pupils are round and equally reacting to light. EOMI. no scleral icterus. No conjunctival pallor. Normocephalic, atraumatic. No pharyngeal erythema. No thyromegaly. CARDIOVASCULAR: S1 and S2 muffled PULMONARY: diminished breath sounds bilaterally with no wheezing or rhonchi noted. ABDOMEN: soft. Mildly tender on exam. obese. non-distended, normoactive bowel sounds. No palpable organomegaly. MUSCULOSKELETAL: No joint swelling or deformity. EXTREMITIES: No cyanosis, clubbing, or pedal edema. NEUROLOGICAL: Gross neurological examination did not reveal any focal deficits. Diffuse weakness SKIN: No rashes. Assessment: Alcohol intoxication Pain with swallowing, possible esophagitis, most likely secondary to excessive liquor use of fifths of vodka daily Continued ongoing alcohol abuse Hypokalemia History of anxiety, bipolar, depression Continued ongoing nicotine dependence GI prophylaxis DVT prophylaxis Full code Plan: Recommend IV hydration and will titrate the diet down to clear liquids as patient is reporting pain with swallowing and have consulted general surgery for evaluation. Patient does admit to drinking at least a fifth of vodka daily if not more and was recently admitted and discharged for this same pain. Patient apparently went home and took his Librium and also continued to drink. When educating the patient about Librium drinking patient reports he was not aware that he could not continue to drink while taking this medication. We'll continue CIWA protocol and also add IV Protonix and replace his potassium. Home medications have been resumed and psychiatry consulted and pending at this time. Patient is not suicidal and will not require a sitter at this time but will continue with petitioned until cleared by psychiatry. Recommend continuing with IV hydration and will follow-up on repeat labs in a.m. Patient having some pain with swallowing and have consulted general surgery which is pending as well. The impression and plan of care has been dictated by Laura Griffin, nurse practitioner as directed. Dr. Brigitte MD I have performed a history and examination and MDM of this patient, discussed the same with the dictator, and agree with the dictator's assessment and plan as written ,documented as a scribe. Based on total visit time, I have performed more than 50% of the visit. Any additional findings or plans will be noted. Past Medical History Past Medical History: Hypertension Additional Past Medical History / Comment(s): Alcohol withdrawal seizure. Hyponatremia. Alcoholic gastritis. Dental abscess. Dental carries History of Any Multi-Drug Resistant Organisms: None Reported Past Surgical History: No Surgical Hx Reported Additional Past Surgical History / Comment(s): Patient had surgery to repair neck injury from suicide attempt Past Anesthesia/Blood Transfusion Reactions: No Reported Reaction Past Psychological History: Anxiety, Bipolar, Depression Smoking Status: Current every day smoker Past Alcohol Use History: Abuse, Daily Past Drug Use History: Marijuana - Past Family History Mother Family Medical History: COPD Additional Family Medical History / Comment(s): History of ETOH. Hx of Bipolar (does not take medication). Hx. also of Crack Cocaine abuse. Father Additional Family Medical History / Comment(s): History of alcohol abuse Medications and Allergies Home Medications Medication Instructions Recorded Confirmed Type Acetaminophen Tab [Tylenol] 650 mg PO Q6HR PRN tab 04/20/22 05/23/22 Rx Pantoprazole Sodium [Protonix] 40 mg PO DAILY #15 tab 04/20/22 05/23/22 Rx Thiamine [Vitamin B-1] 100 mg PO BID-W/MEALS 30 Days #60 04/20/22 05/23/22 Rx tab Sertraline [Zoloft] 50 mg PO HS 05/18/22 05/23/22 History busPIRone HCl [Buspar] 5 - 10 mg PO TID PRN 05/18/22 05/23/22 History hydrOXYzine HCL [Atarax] 10 mg PO BID PRN 05/18/22 05/23/22 History Allergies Allergy/AdvReac Type Severity Reaction Status Date / Time No Known Allergies Allergy Verified 05/18/22 10:35 Physical Exam Vitals: Vital Signs Temp Pulse Resp BP Pulse Ox 05/23/22 14:30 109 H 20 125/76 98 05/23/22 10:42 97.8 F 109 H 16 128/82 96 Intake and Output 05/22/22 05/23/22 05/23/22 22:59 06:59 14:59 Other: Weight 87.4 kg Results CBC & Chem 7: 05/23/22 10:54 05/23/22 10:54 Labs: Abnormal Lab Results - Last 24 Hours (Table) 05/23/22 05/23/22 05/23/22 Range/Units 10:54 10:54 10:54 Monocytes # (Manual) 1.75 H (0-1.0) k/uL Potassium 3.2 L (3.5-5.1) mmol/L Chloride 109 H (98-107) mmol/L Carbon Dioxide 16 L (22-30) mmol/L BUN 3 L (9-20) mg/dL Glucose 102 H (74-99) mg/dL AST 121 H (17-59) U/L ALT 144 H (4-49) U/L U Benzodiazepines Scrn Detected H (NotDetected) Serum Alcohol 336 H* mg/dL
[2022-05-23] MEDS: NICOTINE 14MG/24HR PATCH TRANSDERM SCH (15:37)
[2022-05-23] MEDS: PANTOPRAZOLE 40 MG/10 ML VIAL IVP SCH ×2 (15:37→20:37)
[2022-05-23] MEDS: THIAMINE 100 MG TAB PO SCH (16:14)
[2022-05-23] MEDS ORDERED: THIAMINE 100 MG TAB PO SCH (17:30)
[2022-05-23] MEDS ORDERED: LORazepam 1 MG/0.5 ML VIAL IV PRN ×2 (18:55)
[2022-05-23] MEDS: LORazepam 1 MG/0.5 ML VIAL IV PRN (20:22)
[2022-05-23] MEDS ORDERED: SERTRALINE 50 MG TAB PO SCH (21:00)
[2022-05-24 04:49] VITALS: RESP 18; TEMP 97.9
[2022-05-24 06:37] LABS: African American GFR (CKD) >90 (>60 ml/min/1.73 sqM); Anion Gap 7 mmol/L; Blood Urea Nitrogen 6 mg/dL (9-20); Calcium 8.2 mg/dL (8.4-10.2); Carbon Dioxide 21 mmol/L (22-30); Chloride 108 mmol/L (98-107); Glucose 89 mg/dL (74-99); Non-African American GFR(CKD) >90 (>60 ml/min/1.73 sqM); Sodium 136 mmol/L (137-145)
[2022-05-24] MEDS: NICOTINE 14MG/24HR PATCH TRANSDERM SCH (08:41)
[2022-05-24] MEDS: PANTOPRAZOLE 40 MG/10 ML VIAL IVP SCH (08:41)
[2022-05-24] MEDS: THIAMINE 100 MG TAB PO SCH (08:41)
[2022-05-24] MEDS: LORazepam 1 MG/0.5 ML VIAL IV PRN (08:54)
[2022-05-24 11:58] VITALS: BP 139/91; PULSE 72
--- NOTE | 2022-05-24 12:06 | P.GSCN ---
History of Present Illness Consult date: 05/24/22 History of present illness: CHIEF COMPLAINT: Vomiting HISTORY OF PRESENT ILLNESS: This is a 26-year-old male who was recently discharged for alcohol intoxication with suicidal ideation and he was discharged home with a Librium taper. Patient took all of the Librium pills and was drinking alcohol at home. He started having vomiting and presented back to the hospital. He has been evaluated by psychiatry. He drinks about a fifth of vodka daily. Patient's had been complaining of painful swallowing after he had the extensive amount of vomiting. The vomiting has resolved. He is tolerating a clear liquid diet. He also reports no difficulty or painful swallow. I she requested to have an EGD because his mother had asked him to. Patient does report having an EGD several years ago due to the vomiting as well. And they recommended that he stop drinking alcohol. Patient reports that he just wants to eat and go home. PAST MEDICAL HISTORY: EtOH abuse, alcohol to a seizure, alcoholic gastritis, anxiety, bipolar, depression PAST SURGICAL HISTORY: See list. MEDICATIONS: See list. ALLERGIES: See list. SOCIAL HISTORY: No illicit drug use. REVIEW OF SYSTEMS: CONSTITUTIONAL: Denies fever or chills. HEENT: Denies blurred vision, vision changes, or eye pain. Denies hemoptysis CARDIOVASCULAR: Denies chest pain or pressure. RESPIRATORY: No shortness of breath. GASTROINTESTINAL: See HPI for pertinent findings HEMATOLOGIC: Denies bleeding disorders. GENITOURINARY: Denies any blood in urine or increased urinary frequency. SKIN: Denies pruitis. Denies rash. PHYSICAL EXAM: VITAL SIGNS: Reviewed GENERAL: Well-developed in no acute distress. HEENT: No sclera icterus. Extraocular movements grossly intact. Moist buccal mucosa. Head is atraumatic, normocephalic. No nasal drainage. ABDOMEN: Soft. Nondistended. Nontender NEUROLOGIC: Alert and oriented. Cranial nerves II through XII grossly intact. LABORATORY DATA: WBC is 9.7 Hgb 14.7 platelets 154 Sodium 136 potassium 4.0 creatinine 0.65 AST 121 ALT 144 Urine drug screen positive for benzodiazepine and serum alcohol level 336 IMAGING: Computed tomography scan from 05/19/2022 no acute abdominal pelvic process. Moderate to severe hepatic steatosis. Small hiatal hernia ASSESSMENT: 1. Painful swallowing after extensive vomiting after drinking alcohol and taking Librium pills PLAN: -Start dysphagia chopped diet. If patient tolerates diet he can be discharged with outpatient EGD when cleared medically -Discussed alcohol cessation Thank you for this consultation Physician [employer] Design Engineer note has been reviewed by physician. Signing provider agrees with the documented findings, assessment, and plan of care. Past Medical History Past Medical History: Hypertension Additional Past Medical History / Comment(s): Alcohol withdrawal seizure. Hyponatremia. Alcoholic gastritis. Dental abscess. Dental carries History of Any Multi-Drug Resistant Organisms: None Reported Past Surgical History: No Surgical Hx Reported Additional Past Surgical History / Comment(s): Patient had surgery to repair neck injury from suicide attempt Past Anesthesia/Blood Transfusion Reactions: No Reported Reaction Past Psychological History: Anxiety, Bipolar, Depression Smoking Status: Current every day smoker Past Alcohol Use History: Abuse, Daily Past Drug Use History: Marijuana - Past Family History Mother Family Medical History: COPD Additional Family Medical History / Comment(s): History of ETOH. Hx of Bipolar (does not take medication). Hx. also of Crack Cocaine abuse. Father Additional Family Medical History / Comment(s): History of alcohol abuse Medications and Allergies Home Medications Medication Instructions Recorded Confirmed Type Acetaminophen Tab [Tylenol] 650 mg PO Q6HR PRN tab 04/20/22 05/23/22 Rx Pantoprazole Sodium [Protonix] 40 mg PO DAILY #15 tab 04/20/22 05/23/22 Rx Thiamine [Vitamin B-1] 100 mg PO BID-W/MEALS 30 Days #60 04/20/22 05/23/22 Rx tab Sertraline [Zoloft] 50 mg PO HS 05/18/22 05/23/22 History busPIRone HCl [Buspar] 5 - 10 mg PO TID PRN 05/18/22 05/23/22 History hydrOXYzine HCL [Atarax] 10 mg PO BID PRN 05/18/22 05/23/22 History Allergies Allergy/AdvReac Type Severity Reaction Status Date / Time No Known Allergies Allergy Verified 05/18/22 10:35 Surgical - Exam Vital Signs Temp Pulse Resp BP Pulse Ox 97.8 F 109 H 16 128/82 96 05/23/22 10:42 05/23/22 10:42 05/23/22 10:42 05/23/22 10:42 05/23/22 10:42 Results - Labs 05/23/22 10:54 05/24/22 05:56 Abnormal Lab Results - Last 24 Hours (Table) 05/23/22 05/23/22 05/23/22 Range/Units 10:54 10:54 10:54 Monocytes # (Manual) 1.75 H (0-1.0) k/uL Sodium (137-145) mmol/L Potassium 3.2 L (3.5-5.1) mmol/L Chloride 109 H (98-107) mmol/L Carbon Dioxide 16 L (22-30) mmol/L BUN 3 L (9-20) mg/dL Creatinine (0.66-1.25) mg/dL Glucose 102 H (74-99) mg/dL Calcium (8.4-10.2) mg/dL AST 121 H (17-59) U/L ALT 144 H (4-49) U/L U Benzodiazepines Scrn Detected H (NotDetected) Serum Alcohol 336 H* mg/dL 05/24/22 Range/Units 05:56 Monocytes # (Manual) (0-1.0) k/uL Sodium 136 L (137-145) mmol/L Potassium (3.5-5.1) mmol/L Chloride 108 H (98-107) mmol/L Carbon Dioxide 21 L (22-30) mmol/L BUN 6 L (9-20) mg/dL Creatinine 0.65 L (0.66-1.25) mg/dL Glucose (74-99) mg/dL Calcium 8.2 L (8.4-10.2) mg/dL AST (17-59) U/L ALT (4-49) U/L U Benzodiazepines Scrn (NotDetected) Serum Alcohol mg/dL Diabetes panel 05/23/22 05/24/22 Range/Units 10:54 05:56 Sodium 143 136 L (137-145) mmol/L Potassium 3.2 L 4.0 (3.5-5.1) mmol/L Chloride 109 H 108 H (98-107) mmol/L Carbon Dioxide 16 L 21 L (22-30) mmol/L BUN 3 L 6 L (9-20) mg/dL Creatinine 0.71 0.65 L (0.66-1.25) mg/dL Glucose 102 H 89 (74-99) mg/dL Calcium 8.6 8.2 L (8.4-10.2) mg/dL AST 121 H (17-59) U/L ALT 144 H (4-49) U/L Alkaline Phosphatase 64 (38-126) U/L Total Protein 6.6 (6.3-8.2) g/dL Albumin 4.1 (3.5-5.0) g/dL Calcium panel 05/23/22 05/24/22 Range/Units 10:54 05:56 Calcium 8.6 8.2 L (8.4-10.2) mg/dL Albumin 4.1 (3.5-5.0) g/dL Pituitary panel 05/23/22 05/24/22 Range/Units 10:54 05:56 Sodium 143 136 L (137-145) mmol/L Potassium 3.2 L 4.0 (3.5-5.1) mmol/L Chloride 109 H 108 H (98-107) mmol/L Carbon Dioxide 16 L 21 L (22-30) mmol/L BUN 3 L 6 L (9-20) mg/dL Creatinine 0.71 0.65 L (0.66-1.25) mg/dL Glucose 102 H 89 (74-99) mg/dL Calcium 8.6 8.2 L (8.4-10.2) mg/dL Adrenal panel 05/23/22 05/24/22 Range/Units 10:54 05:56 Sodium 143 136 L (137-145) mmol/L Potassium 3.2 L 4.0 (3.5-5.1) mmol/L Chloride 109 H 108 H (98-107) mmol/L Carbon Dioxide 16 L 21 L (22-30) mmol/L BUN 3 L 6 L (9-20) mg/dL Creatinine 0.71 0.65 L (0.66-1.25) mg/dL Glucose 102 H 89 (74-99) mg/dL Calcium 8.6 8.2 L (8.4-10.2) mg/dL Total Bilirubin 0.2 (0.2-1.3) mg/dL AST 121 H (17-59) U/L ALT 144 H (4-49) U/L Alkaline Phosphatase 64 (38-126) U/L Total Protein 6.6 (6.3-8.2) g/dL Albumin 4.1 (3.5-5.0) g/dL
--- NOTE | 2022-05-24 12:55 | P.CN ---
Psychiatric Consult - . Consult date: 05/24/22 Consult:: 05/24/22 12:54 IDENTIFYING DATA: This patient is a single, unemployed, 26-year-old male with significant history of alcohol use disorder presents to the hospital for acute alcohol intoxication HISTORY OF PRESENT ILLNESS: The patient presented to the hospital under petition for a possible suicide attempt by overdosing on alcohol and benzodiazepines. The patient's blood alcohol level upon presentation to the emergency department was 336. His UDS was also positive for benzodiazepines. The patient was admitted medically with a psychiatry consult for suicidal behavior. Upon assessment on the medical floor, the patient is vehemently denying any suicidal or homicidal ideation, intention, and/or plan. He is not reporting any auditory or visual hallucinations. He is denying any paranoia or other de lusions. The patient vehemently states that he was just drinking for fun and he knew it was wrong for him to take those benzodiazepine medications however could not help himself. He vehemently denies that there was any intention of trying to kill himself. He does have a prior attempt at suicide however states it has been many years. He is not endorsing any significant depressive symptoms at th is time. He denies any anhedonia, decreased motivation, hopelessness, helplessness, or changes in appetite and sleep. He reports no bipolar symptoms. He denies any psychotic symptoms. The patient expresses that he has plenty of reasons to live including for his sister and for his general health and future. The patient reports "I'm only 26. I have plenty to live for." PAST PSYCHIATRIC HISTORY: Patient has a history of depression and alcohol use disorder. Patient is currently receiving Zoloft. Patient reports normal outpatient follow-up. He reports one prior suicide attempt by cutting his neck. PAST MEDICAL HISTORY: Past Medical History: Hypertension Additional Past Medical History / Comment(s): Alcohol withdrawal seizure. Hypon atremia. Alcoholic gastritis. Dental abscess. Dental carries History of Any Multi-Drug Resistant Organisms: None Reported Past Surgical History: No Surgical Hx Reported Additional Past Surgical History / Comment(s): Patient had surgery to repair neck injury from suicide attempt Past Anesthesia/Blood Transfusion Reactions: No Reported Reaction Past Psychological History: Anxiety, Bipolar, Depression Smoking Status: Current every day smoker Past Alcohol Use History: Abuse, Daily Past Drug Use History: Marijuana ALLERGIES: NO KNOWN DRUG ALLERGIES CHEMICAL DEPENDENCY HISTORY: The patient has been drinking up to 2/5 of liquor per day. He reports his last drink was approximately 2 days ago. FAMILY PSYCHIATRIC/SUBSTANCE USE HISTORY: None reported SOCIAL HISTORY: Patient is currently single, unemployed, however has been living with his family. He has a sister. MENTAL STATUS EXAM: General Appearance: Patient appears to be stated age is alert, pleasant, and cooperative. Patient appears to have fair hygiene and grooming wearing hospital gown with fair eye contact. Behavior: Patient is calmly lying in bed without any agitated behavior. Speech: Patient's speech is fluent and nonpressured. Mood/Affect: Patient reports their mood is "doing fine", affect is congruent to bright Suicidality/Homicidality: Patient denies having any suicidal or homicidal ideation intent or plan. Perceptions: Patient denies any visual hallucinations and denies any auditory hallucinations Though content/process: There is no evidence of any delusional thought content and thought process is linear and goal-directed. Memory and concentration: AOX3, grossly intact for the purposes of this session. Can spell "WORLD" backwards Judgment and insight: Fair IMPRESSIONS: Acute alcohol intoxication Alcohol use disorder Benzodiazepine abuse PLAN: -At this time patient DOES NOT meet criteria for inpatient psychiatric admission. Primary diagnosis is alcohol use disorder. He does not require inpatient psychiatric admission as he does not present with imminent risk of harm to self or others. He will remain at chronically elevated risk for suicide/self-harm due to his heavy alcohol use. -Would recommend the following medication changes/additions: No medication recommendations remain at this time. Strongly suggest the patient does not ever get prescribed benzodiazepine medications in the outpatient setting due to his high risk of coingestion with alcohol. -Discontinue one-to-one sitter -Recommend resources for substance abuse treatment. Recommend outpatient psyc hiatric follow-up. -Psychiatry will sign off at this point, please contact with any questions. 05/24/22 12:55
--- NOTE | 2022-05-24 15:33 | P.DS ---
Providers Date of admission: 05/23/22 12:57 Expected date of discharge: 05/24/22 Attending physician: Brenda Briggs Consults: 05/23/22 12:56 Consult Physician Urgent Consulting Provider: Branden Clark Consult Reason/Comments: Suicidal behavior Do you want consulting provider notified?: Yes 05/23/22 15:18 Consult Physician Urgent Consulting Provider: Alvarez Frost Consult Reason/Comments: painful swallowing, drinks excessively pints of vodka daily Do you want consulting provider notified?: Yes Primary care physician: Jessica Magallanes Hospital Course: Final diagnosis Alcohol intoxication Pain with swallowing, possible esophagitis, most likely secondary to excessive liquor use of fifths of vodka daily Continued ongoing alcohol abuse Hypokalemia, improved History of anxiety, bipolar, depression Continued ongoing nicotine dependence GI prophylaxis DVT prophylaxis Full code Discharge disposition Patient is being discharged in a stable condition with guarded prognosis to home. Patient will follow-up with Dr. Whitman in the outpatient setting upon discharge. Patient is to continue with . Total time taken is greater than 35 minutes. Hospital course This is a 26-year-old male who was recently admitted with acute alcohol intoxication and ingestion of 9 tablets of Librium without suicide intentions and adamantly denies any suicidal ideations at this time. Patient was maintained on CIWA protocol and also was evaluated by psychiatry and cleared for discharge for outpatient follow-up and strongly encouraged alcohol rehab and to again contact [facility] for inpatient alcohol rehab. Patient is not actively withdrawing and is stable for discharge home today. Patient did have some pain with swallowing and was evaluated by general surgery recommending outpatient EGD and patient will be continued on Protonix. Patient educated on the importance of alcohol cessation as patient reports to drinking at least a fifth of vodka daily which could be contributing to his esophageal pain. General surgery educated this to the patient as well. Patient is tolerating diet and recommend to continue with a soft diet and follow-up with primary care provider. Currently no reports of chest pain, shortness of breath, or palpitations. Patient is afebrile. No reports of nausea or vomiting and patient is tolerating diet. Patient will be discharged home today. Guarded prognosis as patient is high risk for readmissions secondary to noncompliance and alcohol intoxication. Physical exam: Gen: This is a 26-year-old male awake, alert and oriented 3, well-developed, well-nourished. HEENT: Head is atraumatic, normocephalic. Pupils equal, round. Sclerae is anicteric. NECK: Supple. No JVD. No lymphadenopathy. No thyromegaly. LUNGS: Clear to auscultation. No wheezes or rhonchi. No intercostal retractions. HEART: Regular rate and rhythm. No murmur. ABDOMEN: Soft. Bowel sounds are present. No masses. No tenderness. EXTREMITIES: No pedal edema. No calf tenderness. NEUROLOGICAL: Patient is awake, alert and oriented x3. Cranial nerves 2 through 12 are grossly intact. Please refer to medication reconciliation sheet for a list of medications. The impression and plan of care has been dictated by Laura Griffin, Nurse Practitioner as directed. Dr. Brigitte MD I have performed a history and examination and MDM of this patient, discussed the same with the dictator, and agree with the dictator's assessment and plan as written ,documented as a scribe. Based on total visit time, I have performed more than 50% of the visit. Patient Condition at Discharge: Stable Plan - Discharge Summary Discharge Rx Participant: No New Discharge Prescriptions: Continue Pantoprazole Sodium [Protonix] 40 mg PO DAILY #15 tab Thiamine [Vitamin B-1] 100 mg PO BID-W/MEALS 30 Days #60 tab Sertraline [Zoloft] 50 mg PO HS Acetaminophen Tab [Tylenol] 650 mg PO Q6HR PRN tab PRN Reason: Fever And/ Or Pain hydrOXYzine HCL [Atarax] 10 mg PO BID PRN PRN Reason: Anxiety busPIRone HCl [Buspar] 5 - 10 mg PO TID PRN PRN Reason: Anxiety Discharge Medication List Acetaminophen Tab [Tylenol] 650 mg PO Q6HR PRN tab 04/20/22 [Rx] Pantoprazole Sodium [Protonix] 40 mg PO DAILY #15 tab 04/20/22 [Rx] Thiamine [Vitamin B-1] 100 mg PO BID-W/MEALS 30 Days #60 tab 04/20/22 [Rx] Sertraline [Zoloft] 50 mg PO HS 05/18/22 [History] busPIRone HCl [Buspar] 5 - 10 mg PO TID PRN 05/18/22 [History] hydrOXYzine HCL [Atarax] 10 mg PO BID PRN 05/18/22 [History] Follow up Appointment(s)/Referral(s): Sona Whitman MD [Primary Care Provider] - 1-2 days ( NO ANSWER AT DISCHARGE. PLEASE CALL AND SCHEDULE AN APPOINTMENT TO SEE DR. WHITMAN IN NEXT COUPLE DAYS. ) Alvarez Frost MD [STAFF PHYSICIAN] - 05/30/22 1:45 pm (Outpatient EGD to be scheduled at follow-up appt. ) Patient Instructions/Handouts: Abuse of Alcohol (DC) Activity/Diet/Wound Care/Special Instructions: Activity Limited until follow-up Continue to follow with alcohol rehab in [facility] for possible alcohol rehab placement Avoid any alcohol intake Follow-up with general surgery outpatient for possible EGD Continue Protonix daily Follow-up with primary care provider upon discharge Continue with AA meetings and follow-up with [facility] Discharge/Stand Alone Forms: AA Meetings [facility], Who Do I Call?, Community Resources, Outpatient Counseling, In Substance Abuse Facilities Discharge Disposition: HOME SELF-CARE
--- NOTE | 2022-05-29 15:17 | CDI ---
Documentation Clarification Form Date: 05/26/2022 08:14:00 PM From: Camille Velazco Phone: Admit Date: 05/23/2022 12:57:00 PM Patient Name: Oli Miller Visit Number: [id number] Discharge Date: 05/24/2022 04:11:00 PM ATTENTION: The Clinical Documentation Specialists (CDI) and [facility] Coding Staff appreciate your assistance in clarifying documentation. Please respond to the clarification below the line at the bottom and electronically sign. The CDI & [facility] Coding staff will review the response and follow-up if needed. Please note: Queries are made part of the Legal Health Record. If you have any questions, please contact the author of this message via ITS. Dr. Brenda Briggs Moderate to severe hepatic steatosis is documented per Consult 05/24/22 and patient is noted to have alcohol abuse. Please clarify if there is a relationship between the diagnoses. History/Risk Factors: 26 yo M, , Pain with swallowing, possible esophagitis, most likely secondary to excessive, continued ongoing alcohol abuse, Hypokalemia, Hx anxiety, bipolar, nicotine dependence Clinical Indicators: Alcohol intoxication, presented to the ED with an alcohol level of 336. Treatment: Patient is being discharged in a stable condition with guarded prognosis to home. Patient will follow-up with Dr. Lopez in the outpatient setting upon discharge. Please clarify the relationship, if any, which is clinically appropriate for this patient: [ x ] Hepatic steatosis is due to alcohol abuse [ ] Hepatic steatosis is not due to alcohol abuse [ ] Other explanation of clinical findings (please specify) [ ] Unable to determine (no explanation for clinical findings) (Template Last Revised: November 2020) MTDD
== END 2022-05-24 16:11 | disposition home or self-care (01) | DRG 918 ==
LOC: EC 10:40 → 5NMEDONC 12:57
PROVIDERS: ADMIT Internal Medicine; ATTEND Internal Medicine
PROC: HZ2ZZZZ Detoxification Services for Substance Abuse Treatment (ICD-10-PCS; principal; 2022-05-23)
DX: T42.4X2A Poisoning by benzodiazepines, intentional self-harm, initial encounter (principal); R45.851 Suicidal ideations; K70.0 Alcoholic fatty liver; F10.129 Alcohol abuse with intoxication, unspecified; I10 Essential (primary) hypertension; K29.20 Alcoholic gastritis without bleeding; F31.9 Bipolar disorder, unspecified; E66.9 Obesity, unspecified; F13.10 Sedative, hypnotic or anxiolytic abuse, uncomplicated; K20.80 Other esophagitis without bleeding; F41.9 Anxiety disorder, unspecified; F17.210 Nicotine dependence, cigarettes, uncomplicated; Y90.8 Blood alcohol level of 240 mg/100 ml or more; K44.9 Diaphragmatic hernia without obstruction or gangrene; E87.6 Hypokalemia; Z68.28 Body mass index [BMI] 28.0-28.9, adult; Z79.899 Other long term (current) drug therapy; Z91.51 Personal history of suicidal behavior; Z98.890 Other specified postprocedural states; Z82.5 Family history of asthma and other chronic lower respiratory diseases; Z81.1 Family history of alcohol abuse and dependence; Z81.8 Family history of other mental and behavioral disorders; Z81.3 Family history of other psychoactive substance abuse and dependence; Z91.19 Patient's noncompliance with other medical treatment and regimen; Z28.310 Unvaccinated for COVID-19
CPT/HCPCS: 36415; 80048; 80053; 80143; 80179; 80306; 80320; 82075; 85025; 93005; 96361; 96374; 99285

== ENCOUNTER 2023-02-18 13:52 | Emergency (ER) | payer BC, OTHER ==
--- NOTE | 2023-02-18 15:34 | XR ---
EXAMINATION TYPE: XR lumbar spine 2 or 3V DATE OF EXAM: 02/18/2023 Comparison: None Clinical History: 27-year-old male back pain, right leg pain Findings: 5 lumbar type vertebral bodies. Vertebral body heights are preserved and alignment is maintained as a re the disc interspaces. Impression: No vertebral compression collapse or malalignment.
--- NOTE | 2023-02-18 15:49 | ED ---
Lower Extremity Injury HPI - General Chief Complaint: Extremity Injury, Lower Stated Complaint: R leg pain Time Seen by Provider: 02/18/23 14:51 Source: patient, RN notes reviewed Mode of arrival: ambulatory Limitations: no limitations - History of Present Illness Initial Comments: 27-year-old male presents emergency department when her right leg pain. Patient states initially started bites hip into his groin. He states he has pain rating down his right leg. He does complain of some mild back pain denies any bowel complaints incontinence or retention or saddle anesthesias no lower extremity paresthesias. Denies any trauma states is worse after long periods of standing or movement. Patient denies abdominal complaints no other associated symptoms. - Related Data Home Medications Medication Instructions Recorded Confirmed Sertraline [Zoloft] 50 mg PO HS 05/18/22 05/23/22 busPIRone HCl [Buspar] 5 - 10 mg PO TID PRN 05/18/22 05/23/22 hydrOXYzine HCL [Atarax] 10 mg PO BID PRN 05/18/22 05/23/22 Previous Rx's Medication Instructions Recorded Acetaminophen Tab [Tylenol] 650 mg PO Q6HR PRN tab 04/20/22 Pantoprazole Sodium [Protonix] 40 mg PO DAILY #15 tab 04/20/22 Thiamine [Vitamin B-1] 100 mg PO BID-W/MEALS 30 Days #60 04/20/22 tab Cyclobenzaprine [Flexeril] 10 mg PO TID PRN #15 tab 02/18/23 predniSONE 50 mg PO DAILY #5 tab 02/18/23 Allergies Allergy/AdvReac Type Severity Reaction Status Date / Time No Known Allergies Allergy Verified 02/18/23 14:12 Review of Systems ROS Statement: Those systems with pertinent positive or pertinent negative responses have been documented in the HPI. ROS Other: All systems not noted in ROS Statement are negative. Past Medical History Past Medical History: Hypertension Additional Past Medical History / Comment(s): Alcohol withdrawal seizure. Hyponatremia. Alcoholic gastritis. Dental abscess. Dental carries History of Any Multi-Drug Resistant Organisms: None Reported Past Surgical History: No Surgical Hx Reported Additional Past Surgical History / Comment(s): Patient had surgery to repair neck injury from suicide attempt Past Anesthesia/Blood Transfusion Reactions: No Reported Reaction Past Psychological History: Anxiety, Bipolar, Depression Smoking Status: Current every day smoker Past Alcohol Use History: Abuse, Daily Past Drug Use History: Marijuana - Past Family History Mother Family Medical History: COPD Additional Family Medical History / Comment(s): History of ETOH. Hx of Bipolar (does not take medication). Hx. also of Crack Cocaine abuse. Father Additional Family Medical History / Comment(s): History of alcohol abuse General Exam Limitations: no limitations General appearance: alert, in no apparent distress Head exam: Present: atraumatic, normocephalic, normal inspection Respiratory exam: Present: normal lung sounds bilaterally. Absent: respiratory distress, wheezes, rales, rhonchi, stridor Cardiovascular Exam: Present: regular rate, normal rhythm, normal heart sounds. Absent: systolic murmur, diastolic murmur, rubs, gallop, clicks Extremities exam: Present: other (Right leg neurovascular intact equal color, equal warmth full range of motion nontender joints) Back exam: Present: full ROM, tenderness, paraspinal tenderness. Absent: vertebral tenderness Course Vital Signs 02/18/23 14:08 Temperature 98.3 F Pulse Rate 98 Respiratory 20 Rate Blood Pressure 166/82 O2 Sat by Pulse 99 Oximetry Medical Decision Making - Medical Decision Making Was pt. sent in by a medical professional or institution (, PA, [employer] [facility], urgent care, hospital, or skilled nursing...) When possible be specific @ -No Did you speak to anyone other than the patient for history (EMS, parent, family, police, friend...)? What history was obtained from this source @ -No Did you review nursing and triage notes (agree or disagree)? Why? @ -I reviewed and agree with nursing and triage notes Were old charts reviewed (outside hosp., previous admission, EMS record, old EKG, old radiological studies, urgent care reports/EKG's, skilled nursing records)? Report findings @ -No old charts were reviewed Differential Diagnosis (chest pain, altered mental status, abdominal pain women, abdominal pain men, vaginal bleeding, weakness, fever, dyspnea, syncope, headache, dizziness, GI bleed, back pain, seizure, CVA, palpatations, mental health, musculoskeletal)? @ -Back pain, leg pain, lumbar radiculopathy, EKG interpreted by me (3pts min.). @ -None X-rays interpreted by me (1pt min.). @ - x-ray lumbar shows no acute process no significant intravertebral disc height loss] CT interpreted by me (1pt min.). @ -None done U/S interpreted by me (1pt. min.). @ -None done What testing was considered but not performed or refused? (CT, X-rays, U/S, labs)? Why? @ -None What meds were considered but not given or refused? Why? @ -None Did you discuss the management of the patient with other professionals (professionals i.e. , PA, [employer], lab, RT, psych nurse, social service technician, pricing lead, teacher, housing officer, patient case coordinator)? Give summary @ -No Was smoking cessation discussed for >3mins.? @ -No Was critical care preformed (if so, how long)? @ -No Were there social determinants of health that impacted care today? How? (Homelessness, low income, unemployed, alcoholism, drug addiction, transportation, low edu. Level, literacy, decrease access to med. care, alf, rehab)? @ -No Was there de-escalation of care discussed even if they declined (Discuss DNR or withdrawal of care, Hospice)? DNR status @ -No What co-morbidities impacted this encounter? (DM, HTN, Smoking, COPD, CAD, Cancer, CVA, ARF, Chemo, Hep., AIDS, mental health diagnosis, sleep apnea, morbid obesity)? @ -None Was patient admitted / discharged? Hospital course, mention meds given and route, prescriptions, significant lab abnormalities, going to OR and other pertinent info. @ -Discharged patient appears to have right lumbar radiculopathy symptoms with no red flag symptoms otherwise. We discussed possibility of a TV and syndrome as he has lateral leg pain from his hip to his knee. Undiagnosed new problem with uncertain prognosis? @ -No Drug Therapy requiring intensive monitoring for toxicity (Heparin, Nitro, Insulin, Cardizem)? @ -No Were any procedures done? @ -No Diagnosis/symptom? @ -Right leg pain, lumbar radiculopathy Acute, or Chronic, or Acute on Chronic? @ -Acute Uncomplicated (without systemic symptoms) or Complicated (systemic symptoms)? @ -Uncomplicated Side effects of treatment? @ -No Exacerbation, Progression, or Severe Exacerbation? @ -No Poses a threat to life or bodily function? How? (Chest pain, [place], ME, pneumonia, PE, COPD, DKA, ARF, appy, cholecystitis, CVA, Diverticulitis, Homicidal, Suicidal, threat to staff... and all critical care pts) @ -No Disposition Clinical Impression: Lumbar radiculopathy, acute, Right leg pain Disposition: HOME SELF-CARE Condition: Stable Instructions (If sedation given, give patient instructions): Lumbar Radiculopathy (ED) Additional Instructions: Please return to the Emergency Department if symptoms worsen or any other concerns. Prescriptions: Cyclobenzaprine [Flexeril] 10 mg PO TID PRN #15 tab PRN Reason: Muscle Spasm predniSONE 50 mg PO DAILY #5 tab Is patient prescribed a controlled substance at d/c from ED?: No Referrals: Sona Lopez MD [Primary Care Provider] - 1-2 days Time of Disposition: 15:56
[2023-02-18 16:07] VITALS: BP 145/78; PULSE 85; RESP 16; TEMP 98
== END 2023-02-18 16:12 | disposition home or self-care (01) ==
LOC: EC 13:52
DX: M54.16 Radiculopathy, lumbar region (principal); M79.604 Pain in right leg; I10 Essential (primary) hypertension; F41.9 Anxiety disorder, unspecified; F31.9 Bipolar disorder, unspecified; F17.200 Nicotine dependence, unspecified, uncomplicated; F12.90 Cannabis use, unspecified, uncomplicated; Z79.899 Other long term (current) drug therapy
CPT/HCPCS: 72100; 99283

== ENCOUNTER → 2023-03-03 | Outpatient (CLI) | payer OTHER ==
--- NOTE | 2023-03-03 15:07 | NM ---
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 Images acq uired 3 hours post injection. FINDINGS: There is abnormal increased uptake about the right hip including the femoral head and neck. Underlyin g avascular necrosis and/or fracture is not excluded. Radiographic correlation is recommended. Otherw ise are presumably homogeneous distribution throughout the axial and appendicular skeleton. Mild jonnathan odontal uptake about the maxilla and mandible. Mild degenerative uptake about the shoulders. IMPRESSION: There is abnormal increased uptake about the right hip including the femoral head and neck. Underlyin g avascular necrosis and/or fracture is not excluded. Radiographic correlation is recommended.
== END | disposition home or self-care (01) ==
LOC: RADNMMAIN 10:31
PROVIDERS: ATTEND Family Medicine
DX: M89.561 Osteolysis, right lower leg (principal)
CPT/HCPCS: 78306; A9503

== ENCOUNTER → 2023-07-08 | Outpatient (CLI) | payer OTHER ==
[2023-07-08 14:35] LABS: Partial Thromboplastin Time 28.4 sec (22.0-30.0)
[2023-07-08 19:08] LABS: HCT 43.2 % (39.6-50.0); HGB 14.2 d/dL (13.0-17.0); MCH 29.5 pg (27.0-32.0); MCHC 32.9 d/dL (32.0-37.0); MCV 89.8 FL (80.0-97.0); Mean Platelet Volume 11.2 FL (9.5-12.2); NRBC Per 100 WBC 0 X 10*3/uL (0.00-0.01); Platelet Count 269 X 10*3/uL (140-440); RBC 4.81 X 10*6/uL (4.40-5.60); RDW 13.9 % (11.5-14.5); WBC 11.05 X 10*3/uL (4.50-10.00)
[2023-07-08 19:30] LABS: ALT 28 U/L (10-49); AST 15 U/L (14-35); Albumin 4.8 d/dL (3.8-4.9); Albumin/Globulin Ratio 1.71 Ratio (1.60-3.17); Alkaline Phosphatase 80 U/L (41-126); Blood Urea Nitrogen 10.4 mg/dL (9.0-27.0); Calcium 9.8 mg/dL (8.7-10.3); Carbon Dioxide 22.2 mmol/L (21.6-31.8); Chloride 105 mmol/L (96-109); Globulin 2.8 d/dL (1.6-3.3); Glucose 104 mg/dL (70-110); Sodium 140 mmol/L (135-145); Total Bilirubin 0.2 mg/dL (0.3-1.2); Total Protein 7.6 d/dL (6.2-8.2)
[2023-07-08 23:05] LABS: Appearance,Urine Clear (Clear); Bilirubin,Urine Negative (Negative); Blood,Urine Negative (Negative); Color,Urine Yellow (Yellow); Ketones,Urine Negative (Negative); Nitrite,Urine Negative (Negative); PH, Urine 6.5; Specific Gravity,Urine 1.014 (1.001-1.030)
[2023-07-09 07:43] LABS: INR 0.9 (<1.2)
== END | disposition home or self-care (01) ==
LOC: LABPAT 13:30
PROVIDERS: ATTEND Orthopaedic Surgery
DX: Z01.812 Encounter for preprocedural laboratory examination (principal); I49.8 Other specified cardiac arrhythmias; M16.11 Unilateral primary osteoarthritis, right hip
CPT/HCPCS: 80053; 81003; 85027; 85610; 85730; 86850; 86900; 86901; 87070; 93005

== ENCOUNTER → 2023-07-18 | Outpatient (CLI) | payer OTHER | END | disposition home or self-care (01) | LOC: LABPAT 12:43 | PROVIDERS: ATTEND Orthopaedic Surgery | DX: Z01.812 Encounter for preprocedural laboratory examination (principal); M87.9 Osteonecrosis, unspecified | CPT/HCPCS: 86850; 86900; 86901 ==

== ENCOUNTER 2023-07-22 13:17 | Inpatient (IN) | payer OTHER ==
[2023-07-14 12:28] VITALS: BMI 28.5
[~2023-07-22 13:17] MED LIST: ACETAMINOPHEN TAB 500 MG TAB PO PRN; DEXAMETHASONE SOD PHOSPHATE 10 MG/ML 1 ML VIAL IV PRN; DOCUSATE 100 MG CAP PO PRN; FAMOTIDINE 20 MG/2 ML VIAL IVP PRN; HYDROmorphone 0.5 MG/0.5 ML SYRINGE IVP PRN; KETOROLAC 15 MG/ML 1 ML VIAL IVP PRN; LIDOCAINE 1% (10MG/ML) FOR IV START INTRADERMA PRN; ONDANSETRON 4 MG/2 ML VIAL IVP PRN; ROPIVACAINE/EPI/CLONIDINE/KET 50 ML SYRINGE MISCELLANE PRN; TRANEXAMIC 1,000 MG/100ML-NACL 1,000 MG in SALINE 1 100ML.BAG IV PRN; TRANEXAMIC 1,000 MG/100ML-NACL 1,000 MG in SALINE 1 100ML.BAG IVPB PRN; oxyCODONE ER 10 MG TAB.ER.12H PO PRN
[2023-07-22] MEDS ORDERED: MIDAZOLAM 2 MG/2 ML VIAL IVP ONE (14:02)
[2023-07-22] MEDS ORDERED: fentaNYL (PF) 50 MCG/ML 2 ML AMP IVP ONE (14:02)
--- NOTE | 2023-07-22 14:12 | P.ANPRN ---
Procedure Note - Anesthesia - Nerve Block Performed Right Arnold Single Time Out Performed: Yes Date of Procedure: 07/22/23 Procedure Start Time: 14:01 Procedure Stop Time: 14:10 Location of Patient: PreOp Indication: Acute Post-Operative Pain, Requested by Surgeon Sedation Type: Sedate with meaningful contact maintained Preparation: Sterile Prep Position: Supine Needle Types: Pajunk Needle Gauge: 21 Ultrasound used to visualize needle placement: Yes Ultrasound used to observe medication spread: Yes Injectate: 0.5% Ropivacaine (see comment for volume) (15 ml + 10 ml NS + 4mg Dexamethasone) Blood Aspirated: No Pain Paresthesia on Injection Noted: No Resistance on Injection: Normal Image Stored and Saved: Yes Events: Uneventful and Well Tolerated
[2023-07-22] MEDS ORDERED: ROPIVACAINE 5 MG/ML 30 ML VIAL ONE (15:37)
[2023-07-22] MEDS ORDERED: PROPOFOL 10 MG/ML 20 ML VIAL IV ONE (15:37)
[2023-07-22] MEDS ORDERED: ROCURONIUM 10 MG/ML (5 ML VIAL) IV ONE (15:37)
[2023-07-22] MEDS ORDERED: DEXAMETHASONE SOD PHOSPHATE 4 MG/ML 1 ML VIAL ONE (15:37)
[2023-07-22] MEDS ORDERED: SUCCINYLCHOLINE CHLORIDE 200 MG/10 ML VIAL IV ONE (15:37)
[2023-07-22] MEDS ORDERED: HYDROmorphone (PF) 1 MG/ML ONE (15:37)
[2023-07-22] MEDS ORDERED: fentaNYL (PF) 50 MCG/ML 2 ML AMP ONE (15:37)
[2023-07-22] MEDS ORDERED: SODIUM CHLORIDE 0.9% (PF) 10 ML VIAL ONE (15:37)
[2023-07-22] MEDS ORDERED: MIDAZOLAM 2 MG/2 ML VIAL ONE (15:37)
[2023-07-22] MEDS ORDERED: NEOSTIGMINE 1 MG/ML 10 ML VIAL ONE (15:37)
[2023-07-22] MEDS ORDERED: LIDOCAINE 1% INJ 10MG/ML (20 ML MDV) ONE (15:37)
[2023-07-22] MEDS ORDERED: TRANEXAMIC 1,000 MG/100ML-NACL PREMIX BAG ONE (15:37)
[2023-07-22] MEDS ORDERED: GLYCOPYRROLATE 0.2 MG/ML 2 ML VIAL ONE (15:37)
[2023-07-22] MEDS ORDERED: KETAMINE HCL IN 0.9 % NACL 50 MG/5 ML SYRINGE ONE (15:37)
[2023-07-22] MEDS ORDERED: LACTATED RINGERS 1,000 ML IV ONE (16:59)
[2023-07-22] MEDS ORDERED: VANCOMYCIN 1,000 MG VIAL MISCELLANE ONE (17:38)
--- NOTE | 2023-07-22 18:17 | FL ---
Intraoperative/procedural fluoroscopic services were provided. Total fluoroscopy time is 40 seconds w ith a total of 9 submitted images to PACS. Please see the operative/procedural note for further detai ls. DAP: 1.6733 Gycm2
[2023-07-22] MEDS ORDERED: MEPERIDINE 50 MG/ML SYRINGE IVP ONE (18:28)
[2023-07-22] MEDS ORDERED: MAGNESIUM HYDROXIDE 2,400 MG/30 ML CUP PO PRN (18:36)
[2023-07-22] MEDS ORDERED: diazePAM 5 MG TAB PO PRN (18:36)
[2023-07-22] MEDS ORDERED: NALOXONE 0.4 MG/ML 1 ML VIAL IV PRN (18:36)
[2023-07-22] MEDS ORDERED: HYDROmorphone 0.5 MG/0.5 ML SYRINGE IVP PRN (18:36)
[2023-07-22] MEDS ORDERED: HYDROcodone/APAP 5-325MG 1 EACH TAB PO PRN (18:36)
--- NOTE | 2023-07-22 18:36 | P.OP ---
Date of Procedure: 07/22/23 Preoperative Diagnosis: 1. Right hip avascular necrosis with collapse 2. Current every day cigarette smoker 3. History of chronic alcohol use Postoperative Diagnosis: Same Procedure(s) Performed: Right direct anterior total hip arthroplasty Implants: 1. [place] Trident II Acetabular Cup, Size #52 2. Luis Alfredo Insignia Size #5 Femoral Stem, Standard Offset 3. Biolox delta femoral head, 36 mm, - 5 mm neck Anesthesia: GETA, regional Surgeon: Ford Sung Estimated Blood Loss (ml): 300 IV fluids (ml): 1,000 Pathology: other (Femoral head to pathology) Condition: stable Disposition: PACU Indications for Procedure: The patient is a 27-year-old male with multiple medical problems including a history of Koo alcohol abuse and cigarette smoking who developed bilateral hip avascular necrosis and collapse. The patient had intractable pain and difficulty ambulating. We discussed that due to the collapse of both femoral heads that this was more urgent then an elective procedure. The patient requested proceeding with bilateral hip replacements. We discussed the potential risks of this. My recommendation was to perform one hip replacement and then return to the operating room several days later for the contralateral hip replacement. The patient understands the slightly elevated risk of complications including . He also understands that he has a higher risk of having a complication due to his cigarette smoking. Again due to the collapse of his femoral heads and severe pain with an inability to ambulate we both agreed that this is more of an urgent procedure than an elective procedure and were both willing to proceed with surgery excepting a higher risk of complication. I had a long discussion with the patient in the office on the potential risks and complications of an elective total hip replacement through a direct anterior approach. Risks discussed include, but are certainly not limited to, risks from anesthesia, superficial infection requiring local wound care or antibiotics, deep jonnathan-prosthetic joint infection and the treatment required to eradicate infection, intraoperative fracture, postoperative periprosthetic fracture, damage to local blood vessels or nerves particularly the lateral femoral cutaneous nerve, delayed wound healing requiring local wound care or possibly surgical debridement, hip dislocation, leg length discrepancy, soft tissue irritation around the total hip implant such as iliopsoas tendinitis or trochanteric bursitis, wear and osteolysis from the implants, squeaking or audible noises, groin pain, thigh pain, heterotopic ossification, stiffness, as eptic loosening of the implants, dissatisfaction with surgical outcome, need for revision surgery, DVT, PE, swelling of the operative extremity, acute coronary event, stroke, failure to thrive, and possibly loss of life or limb. The patient understands that while these are the most common complications after an elective hip replacement there are certainly other less common complications possible. They were given ample time to ask questions regarding the potential complications of a hip replacement. Following our discussion the patient provided their verbal and written consent to go forward with an elective total hip replacement. Operative Findings: Avascular necrosis with collapse of the femoral head and delamination of the cartilage. Large effusion and multiple loose bodies. Description of Procedure: The patient was identified in the preoperative holding area and the correct hip was marked with my initials. I reviewed the procedure and consent with the patient. All of their questions were answered. The patient was then brought back into the operating room by anesthesia. While on the [facility] anesthesia was administered by the anesthesia team. Preoperative antibiotics and tranexamic acid were also given. After the patient was under anesthesia I examined their ankles to determine their preoperative leg length discrepancy. The skin over the anterior aspect of the hip was shaved to remove hair over the site of planned incision. Both feet and ankles were padded with webril and boots for the [place] were applied. The patient was then carefully transferred onto the [place] table. A perineal post was immediately placed. The arms were placed on arm holders and were well-padded. Both boots were secured to the spars on the [place] table. The patient was positioned so that the pelvis was centered over the post. Nonsterile drapes were applied. A timeout was performed identifying the correct patient, operative extremity, and procedure. At this point fluoroscopy was brought in to take preoperative images of the pelvis and operative hip. Using the standing AP pelvis from the office as a template, a comparable image was obtained with fluoroscopy. A metallic bar was used to create a bi-ischial line for use as a reference to leg length adjustments during the procedure. Global offset was also measured on both the operative and nonoperative leg. Fluoroscopy was then brought out and a pre-scrub using a chlorhexidine scrub brush was performed. The operative limb was then prepped and draped in the standard sterile fashion. An anterior longitudinal incision was made lateral and distal to the ASIS. The skin and subcutaneous tissues were incised sharply. The underlying tensor fascia was identified and incised in its midportion. The fascia was dissected free from the underlying muscle and the muscle belly was retracted. A blunt tipped cobra retractor was placed over the superior neck under the muscle fibers of the gluteus minimus. The deep enveloping fascia of the tensor was incised. The anterior leash of vessels were then identified and cauterized. The fascia between the rectus and the capsule was then incised and the pre-capsular fat was excised. A second Cobra was placed inferior to the neck. The interval between the rectus and iliocapsularis and the hip capsule was developed and a retractor was placed carefully over the anterior rim of the acetabulum. A T-shaped anterior capsulotomy was performed. The superior capsular leaflet was left in place in the inferior capsular flap was excised. The Cobra retractors were placed intracapsularly. We then made a femoral neck osteotomy according to preoperative and intraoperative templating and confirmed the level of the osteotomy using fluoroscopic imaging. The femoral head was removed, passed off to the back table, and sized. On inspection of the femoral head there was collapse with delaminated cartilage and a large area of necrotic bone. The superior capsular flap was excised. Retractors were placed circumferentially exposing the acetabulum. We then circumferentially debrided the acetabulum free of labrum and osteophytes. The pulvinar was removed to fully visualize the cotyloid fossa. We then sequentially reamed to achieve peripheral fit and excellent bleeding subchondral bone. The socket was thoroughly irrigated. The acetabular component was impacted into the appropriate position using fluoroscopy to guide version, inclination, and depth of insertion taking care to have a comparable image of the AP pelvis to the standing image taken in the office. An excellent press-fit was achieved and final position was confirmed using fluoroscopy. The press fit was augmented with bony cancellus dome screws. The liner was then impacted into the socket. Attention was then turned to the femur. The remnant dorsal lateral capsule was excised. The short external rotators were visible and protected. A bone hook was used to confirm appropriate translation of the trochanter away from the acetabulum. The leg was then extended and adducted and the bone hook was used to elevate the femur for broaching. A box osteotome and blunt tipped canal sound was then utilized to gain access to the femoral canal. We then sequentially broached the femur in appropriate anteversion until excellent torsional stability was achieved. The neck cut was brought flush to the trial broach with a calcar planar. A trial neck and head were then placed onto the broach and the hip was atraumatically reduced under direct visualization. External rotation to 90 was performed to assess stability. Fluoroscopy was brought in. An AP and lateral fluoroscopic image of the proximal femur was obtained to assess position and fill of the trial broach. An AP of the pelvis was then obtained and matched to the preoperative image taken. A bi-ischial bar was then placed and measurements were taken to assess changes in length and offset. The hip was then carefully dislocated, the proximal femur was exposed, and the trial implants were removed. The wound and proximal femur was thoroughly irrigated using sterile saline and pulsatile lavage. The final femoral implant was dispensed and gently tapped into place generating an excellent press-fit. The trunnion was cleansed and the final head was tapped into place to engage the Moreno taper. The acetabulum was irrigated and visualized to be free of debris. The hip was carefully reduced. Stability was checked clinically with external rotation to 90 and there was no evidence of instability. Final fluoroscopic images were taken. The wound was then thoroughly irrigated and soaked with a dilute Betadine rinse for 3 minutes. 3 L of sterile saline was irrigated through the wound using pulsatile lavage. Local anesthetic cocktail was injected into the soft tissues around the surgical field. A deep drain was placed. The wound was then closed in layers. A sterile dressing was placed over the surgical incision and drain site. The drapes were taken down and the patient was carefully transferred off of the [place] table. Following removal of the boots the leg lengths felt acceptable. The patient was then taken to recovery room having tolerated the procedure well. PLAN: The patient can weight-bear as tolerated on the operative extremity. 2 doses of postoperative antibiotics then home on doxycycline 100 mg BID until incision heals. DVT prophylaxis with Lovenox 40 mg daily until Friday PM then home on Eliquis after left total hip replacement. Physical therapy for gait training. Discontinue drain postoperative day #1 if output is less than 100 mL per shift. Return to OR on for left total hip replacement.
[2023-07-22] MEDS: LACTATED RINGERS 1,000 ML IV SCH (19:57)
[2023-07-22] MEDS: HYDROcodone/APAP 10-325MG 1 EACH TAB PO PRN (20:41)
[2023-07-22] MEDS: SENNOSIDES-DOCUSATE SODIUM 1 EACH TAB PO SCH (20:42)
[2023-07-22] MEDS: SODIUM CHLORIDE 0.9% 1,000 ML IV SCH (22:33)
[2023-07-22] MEDS: HYDROmorphone 1 MG/ML 1 ML SYRINGE IVP PRN (23:02)
--- NOTE | 2023-07-23 00:24 | P.CONS ---
History of Present Illness - Reason for Consult Consult date: 07/22/23 - History of Present Illness Patient is a 27-year-old male with a PMH of EtOH abuse, polysubstance abuse, and right hip avascular necrosis who was admitted for scheduled right total hip replacement. The patient underwent the procedure earlier today with no immediate postoperative complications and was seen on the surgical unit. He reported ongoing out of 10 right hip pain. Denied experiencing chest discomfort, shortness of breath, sore throat, fever, chills, cough, nausea, vomiting, abdominal pain, diarrhea. Patient notes he has been sober from alcohol for the past 1 year as well as any substances. Review of systems: Pertinent positives and negatives as discussed in HPI, a complete review of systems was performed and all other systems are negative. Physical examination: Vital signs reviewed General: non toxic, no distress, appears at stated age, normal weight Derm: no unusual rashes/lesions, warm Head: atraumatic, normocephalic, symmetric Eyes: EOMI, no lid lag, anicteric sclera, pupils equal round reactive to light ENT: Nose and ears atraumatic Neck: No cervical lymphadenopathy, trachea midline, supple Mouth: no lip lesion, mucus membranes moist, poor dentition Cardiovascular: S1S2 reg, no murmur, positive dorsalis pedis pulse bilateral, no edema Lungs: CTA bilateral, no rhonchi, no rales, no accessory muscle use Abdominal: soft, nontender to palpation, no guarding Ext: muscle strength 5 out of 5 in all extremities grossly , right anterior hip dressings in place and clean, no gross muscle atrophy, no contractures, Neuro: CN II-XI grossly intact, no gross focal neuro deficits Psych: Alert, oriented, appropriate affect Assessment: History of alcohol and polysubstance abuse Status post right total hip replacement Plan: Advised on importance of continued cessation from substance and alcohol use Defer management of pain control and DVT prophylaxis to the primary surgery service Past Medical History Past Medical History: Hypertension Additional Past Medical History / Comment(s): Alcohol withdrawal seizure. Hyponatremia. Alcoholic gastritis. Dental abscess. Dental carries History of Any Multi-Drug Resistant Organisms: None Reported Past Surgical History: No Surgical Hx Reported Additional Past Surgical History / Comment(s): Patient had surgery to repair neck injury from suicide attempt Past Anesthesia/Blood Transfusion Reactions: No Reported Reaction Past Psychological History: Anxiety, Bipolar, Depression Additional Psychological History / Comment(s): Pt resides alone in an apartment. He is independent. He has had suicidal thoughts/cut neck in suicide attempt in past but states he has not felt suicidal in a long time. Smoking Status: Current every day smoker Past Alcohol Use History: Abuse, Daily Additional Past Alcohol Use History / Comment(s): Pt started smoking in 2005 and is 2 pppd smoker. Pt often drinks 2 Fifths of liquor daily, prefers Vodka. Discharged from [address] [place] [address] yesterday for ETOH withdrawls. Upon leaving yesterday patient proceeded to drink a fifth of Vodka and took all the Librium that he was prescribed at discharge(9 tablets). Past Drug Use History: Marijuana - Past Family History Mother Family Medical History: COPD Additional Family Medical History / Comment(s): History of ETOH & crack cocaine abuse., Hx of Bipolar Father Additional Family Medical History / Comment(s): History of alcohol abuse Medications and Allergies Home Medications Medication Instructions Recorded Confirmed Type Celecoxib [CeleBREX] 200 mg PO BID 07/14/23 07/22/23 History HYDROcodone/APAP 7.5-325MG [Flint 1 tab PO Q6HR PRN 07/14/23 07/22/23 History 7.5-325] Omeprazole Magnesium [PriLOSEC OTC] 20 mg PO DAILY PRN 07/14/23 07/22/23 History Varenicline [Chantix Continuing 1 mg PO BID 07/14/23 07/22/23 History Pack] buPROPion XL [Wellbutrin XL] 150 mg PO DAILY 07/14/23 07/22/23 History Allergies Allergy/AdvReac Type Severity Reaction Status Date / Time No Known Allergies Allergy Verified 07/22/23 13:50 Physical Exam Vitals: Vital Signs Temp Pulse Pulse Resp BP Pulse Ox 07/22/23 21:45 94 134/83 95 07/22/23 21:30 92 131/82 95 07/22/23 21:15 85 132/85 95 07/22/23 21:00 107 H 120/79 93 L 07/22/23 20:45 110 H 147/93 96 07/22/23 20:30 92 150/92 97 07/22/23 20:15 100 157/61 97 07/22/23 20:00 104 H 156/95 93 L 07/22/23 19:45 98.4 F 102 H 18 154/94 97 07/22/23 19:05 96 16 163/74 94 L 07/22/23 18:50 101 H 17 166/83 91 L 07/22/23 18:35 109 H 16 171/90 94 L 07/22/23 18:18 113 H 18 171/93 99 07/22/23 14:13 90 16 125/59 97 07/22/23 13:35 97.6 F 106 H 18 161/90 95 Intake and Output 07/22/23 07/22/23 07/23/23 14:59 22:59 06:59 Intake Total 500 1250 Output Total 300 Balance 500 950 Intake: IV 500 1250 Output: Estimated Blood Loss 300 Other: Weight 95.8 kg 95.8 kg
[2023-07-23] MEDS: HYDROcodone/APAP 10-325MG 1 EACH TAB PO PRN ×3 (05:56→18:35)
[2023-07-23] MEDS: SODIUM CHLORIDE 0.9% 1,000 ML IV SCH ×2 (05:57→18:29)
[2023-07-23] MEDS: LACTATED RINGERS 1,000 ML IV SCH ×2 (05:58)
--- NOTE | 2023-07-23 07:41 | P.PN ---
Subjective Progress Note Date: 07/23/23 Patient is doing relatively well this morning. He has pain in his hip but is currently comfortable in his current pain regimen. He denies chest pain or shortness of breath. Objective - Vital Signs Vital signs: Vital Signs Temp 98.6 F 07/23/23 01:16 Pulse 104 H 07/23/23 01:16 Resp 18 07/23/23 01:16 BP 126/64 07/23/23 01:16 Pulse Ox 92 L 07/23/23 01:16 FiO2 Intake & Output 07/22/23 07/23/23 07/23/23 18:59 06:59 18:59 Intake Total 1750 Output Total 300 1150 Balance 1450 -1150 Weight 95.8 kg Intake: IV 1750 Output: Urine 1150 Estimated Blood Loss 300 Other: Voiding Method Toilet Urinal - Exam The patient is sitting up in bed and is alert and easily able to answer questions. A focused examination of the right hip was conducted. On inspection there is a clean drain site with no drainage or strike through. His drain is intact with good seal. His thigh and calf are soft. Femoral nerve function is intact. The patient is able to actively plantarflex and dorsiflex his ankle and his toes. Assessment and Plan Assessment: Postoperative day #1 status post right direct anterior total hip arthroplasty for avascular necrosis and collapse due to alcohol abuse Left hip avascular necrosis and collapse History of polysubstance abuse including alcohol and cigarette use Plan: 1. Weight-bear as tolerated right lower extremity, up with assistance and a walker. Mobilize out of bed to chair 2. Leave dressing and drain in place. 3. Postoperative antibiotic prophylaxis - Ancef while in-house and home on doxycycline given the patient's medical history 4. Appreciate internal medicine's assistance with perioperative medical management 5. DVT prophylaxis - given the patient's risks including having bilateral hip replacements and polysubstance abuse with avascular necrosis he will be treated with Lovenox in-house and then will be discharged home on Eliquis 6. Dispo - nothing by mouth after midnight tonight for left hip replacement tomorrow. Following this we'll begin planning for discharge.
[2023-07-23] MEDS: HYDROmorphone 1 MG/ML 1 ML SYRINGE IVP PRN ×3 (08:35→21:36)
[2023-07-23] MEDS ORDERED: ENOXAPARIN 40 MG/0.4 ML SYRINGE SQ SCH (09:00)
[2023-07-23] MEDS ORDERED: ENOXAPARIN 40 MG/0.4 ML SYRINGE SQ ONE (09:00)
[2023-07-23] MEDS: hydrOXYzine pamoate 25 MG CAP PO PRN ×2 (11:08→18:35)
[2023-07-23 11:36] LABS: HCT 37.2 % (39.6-50.0); HGB 11.8 g/dL (13.0-17.0); MCHC 31.7 g/dL (32.0-37.0); MCV 91.4 FL (80.0-97.0); Mean Platelet Volume 12.1 FL (9.5-12.2); NRBC Per 100 WBC 0 X 10*3/uL (0.00-0.01); Platelet Count 276 X 10*3/uL (140-440); RBC 4.07 X 10*6/uL (4.40-5.60); RDW 13.6 % (11.5-14.5); WBC 24.21 X 10*3/uL (4.50-10.00)
[2023-07-23 12:10] LABS: Basophils # (A) 0.05 X 10*3/uL (0.00-0.10); Basophils % (A) 0.2 %; Eosinophils # (A) 0.01 X 10*3/uL (0.04-0.35); Eosinophils % (A) 0 %; Lymphocytes # (A) 1.37 X 10*3/uL (0.90-5.00); Lymphocytes % (A) 5.7 %; Monocytes # (A) 1.95 X 10*3/uL (0.20-1.00); Monocytes % (A) 8.1 %; Neutrophils # (A) 20.62 X 10*3/uL (1.80-7.70); Neutrophils % (A) 85.1 %; RBC Morphology Normal (Normal)
[2023-07-23] MEDS ORDERED: ONDANSETRON 4 MG/2 ML VIAL IVP PRN (15:14)
--- NOTE | 2023-07-23 16:46 | P.PN ---
Subjective Progress Note Date: 07/23/23 Hospital course: Patient is a very pleasant 27-year-old male with a past medical history of EtOH abuse, nicotine dependence, anxiety, depression, and bipolar disorder. Patient reports previous history of daily drinking but reports he has been nearly 1 year since his last alcoholic beverage and he denies any history of previous IV drug use. Patient is currently admitted to our facility under orthopedic surgery team secondary to scheduled urgent bilateral hip replacements. 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 Patient underwent right direct anterior total hip arthroplasty on 07/22/23 and is scheduled to undergo left total hip arthroplasty on 07/24/23. We have been consulted for medical management throughout patient's hospitalization. Physical exam: Patient seen and fully evaluated at bedside this morning. Patient just assisted to chair via walker and nursing and is currently sitting up in chair. He reports postoperative pain was difficult throughout the night but is currently better controlled. Vital signs reviewed and stable. General: Nontoxic, no distress and appears stated age. Derm: Skin warm and dry, normal coloration for ethnicity. Head: Atraumatic, normocephalic and symmetric. Dental caries. Eyes: EOMs intact, no lid lag, and anicteric sclera Mouth: no lip lesions, mucus membranes moist Cardiovascular: regular rate and rhythm with normal S1S2, no murmur, positive posterior tibial pulses bilaterally, and cap refill < 2 seconds. Lungs: Respirations even, regular, and unlabored on room air. Lungs CTA bilaterally, no rhonchi, no rales, no wheezing, and no accessory muscle usage. Abdominal: soft, nontender to palpation, no guarding, no appreciable organomegaly Ext:. No gross muscle atrophy, no edema, no contractures. Movement and sensation intact. Postoperative dressing and drain in place. Neuro: Speech clear, face symmetrical and CN II-XII grossly intact with no noted focal neuro deficits Psych: Alert and oriented to person, place, time, and situation. Appropriate and pleasant affect. Assessment and Plan of Care: Acute postoperative blood loss anemia Leukocytosis Avascular necrosis Status post right total hip arthroplasty -Patient is status post right direct anterior total hip arthroplasty completed by Dr. Sung on 07/22/23 -Patient is scheduled to undergo left total hip arthroplasty on 07/24/23. -Acute postoperative blood loss anemia with hemoglobin of 11.8 and preoperative hemoglobin of 14.2. This is an expected and stable finding with no need for transfusion or further intervention at this time we will continue to monitor with repeat morning CBC and place additional orders as indicated based upon these findings. -Acute postoperative leukocytosis is likely reactive secondary to surgical procedure. We will continue to monitor with repeat CBC tomorrow morning. -Symptomatic care and pain management. -DVT prophylaxis, pain management, wound/dressing care, weightbearing, and PT/OT per primary admitting orthopedic surgery team. History of alcohol abuse -Patient reports being free from any alcohol use for greater than 1 year. Patient was acknowledged this accomplishment and encouraged to continue cessation of any and all alcohol use in the future. Data reviewed: Preoperative and postoperative labs were reviewed. Preoperative hemoglobin was 14.2 with postoperative hemoglobin of 11.8 and preoperative WBC count was 11.05 with postoperative WBC count of 24.21. Vital signs reviewed. Blood pressure 118/73, heart rate 104, temp 98.1F, and SpO2 of 98% on room air. Thank you for allowing us to participate in the care of this pleasant patient. Do not hesitate to contact us with questions. Someone can be reached from the [facility] hospitalist group all hours of the day at [phone] or via perfect serve. Patient was seen independently by Nurse Pracitioner. This document was prepared using [employer] dictation software. Please allow for errors in venereal disease investigator, while rare they do occur. Objective - Vital Signs Vital signs: Vital Signs Temp 98.1 F 07/23/23 07:07 Pulse 104 H 07/23/23 07:07 Resp 18 07/23/23 07:07 BP 118/73 07/23/23 07:07 Pulse Ox 98 07/23/23 07:07 FiO2 Intake & Output 07/22/23 07/23/23 07/23/23 18:59 06:59 18:59 Intake Total 1750 Output Total 300 1150 Balance 1450 -1150 Weight 95.8 kg Intake: IV 1750 Output: Urine 1150 Estimated Blood Loss 300 Other: Voiding Method Toilet Urinal - Labs CBC & Chem 7: 07/23/23 06:54
[2023-07-23] MEDS ORDERED: MAG HYDROX/AL HYDROX/SIMETH 30 ML, HYOSCYAMINE ELIXIR 10 ML, LIDOCAINE VISCOUS 10 ML PO ONE ×3 (18:00)
[2023-07-23] MEDS: PANTOPRAZOLE 40 MG/10 ML VIAL IVP SCH (18:35)
[2023-07-23] MEDS: SENNOSIDES-DOCUSATE SODIUM 1 EACH TAB PO SCH (21:35)
[2023-07-24] MEDS: HYDROcodone/APAP 10-325MG 1 EACH TAB PO PRN ×3 (01:05→17:25)
[2023-07-24] MEDS: SODIUM CHLORIDE 0.9% 1,000 ML IV SCH ×3 (01:06→21:57)
[2023-07-24] MEDS: HYDROmorphone 1 MG/ML 1 ML SYRINGE IVP PRN ×4 (02:41→21:42)
[2023-07-24] MEDS: LACTATED RINGERS 1,000 ML IV SCH ×3 (06:24→09:33)
[2023-07-24] MEDS: PANTOPRAZOLE 40 MG/10 ML VIAL IVP SCH (07:43)
--- NOTE | 2023-07-24 08:12 | P.PN ---
Subjective Patient is painful this morning but it is as expected. He states most of his pain is muscular as related to movement. He denies chest pain or shortness of breath. Objective - Vital Signs Vital signs: Vital Signs Temp 98.7 F 07/24/23 01:44 Pulse 95 07/24/23 01:44 Resp 17 07/24/23 01:44 BP 135/75 07/24/23 01:44 Pulse Ox 97 07/24/23 01:44 FiO2 Intake & Output 07/23/23 07/24/23 07/24/23 18:59 06:59 18:59 Output Total 700 725 75 Balance -700 -725 -75 Output: Drainage 100 75 Right Hip 100 75 Urine 700 625 Other: Voiding Method Toilet Toilet Urinal Urinal - Exam Patient is resting comfortably in bed. He is alert and able to answer questions. On inspection of the right hip there is a clean dressing with no drainage. His Hemovac drain was pulled. His thigh and calf are soft. Femoral nerve function is intact. He is able to actively plantar flex and dorsiflex his ankle and his toes. - Labs CBC & Chem 7: 07/23/23 06:54 Labs: Abnormal Lab Results - Last 24 Hours (Table) 07/23/23 Range/Units 06:54 WBC 24.21 H (4.50-10.00) X 10*3/uL RBC 4.07 L (4.40-5.60) X 10*6/uL Hgb 11.8 L (13.0-17.0) g/dL Hct 37.2 L (39.6-50.0) % MCHC 31.7 L (32.0-37.0) g/dL Neutrophils # 20.62 H (1.80-7.70) X 10*3/uL Monocytes # 1.95 H (0.20-1.00) X 10*3/uL Eosinophils # 0.01 L (0.04-0.35) X 10*3/uL Assessment and Plan Assessment: Bilateral hip avascular necrosis, status post right direct anterior total hip replacement postoperative day #2 History of prior alcohol abuse Current smoker Plan: The patient is painful but is otherwise doing well. He has bilateral hip avascular necrosis and has undergone a right total hip replacement. The patient continues to request proceeding with his left hip replacement. Given the severity of his pain as well as the condition of his right hip I think that this is reasonable. The patient understands his elevated risk due to smoking. He also understands the elevated risk of undergoing simultaneous bilateral joint replacements. Patient wishes to proceed with surgery. He will remain nothing by mouth and will plan for surgery later this morning.
[2023-07-24] MEDS ORDERED: ONDANSETRON 4 MG/2 ML VIAL IVP ONE (09:34)
[2023-07-24] MEDS ORDERED: FAMOTIDINE 20 MG/2 ML VIAL IVP ONE (09:35)
[2023-07-24] MEDS ORDERED: DEXAMETHASONE SOD PHOSPHATE 4 MG/ML 1 ML VIAL IVP ONE (09:40)
[2023-07-24] MEDS ORDERED: KETOROLAC 15 MG/ML 1 ML VIAL IVP ONE (09:55)
[2023-07-24] MEDS ORDERED: ACETAMINOPHEN TAB 500 MG TAB PO ONE (10:14)
[2023-07-24 10:19] LABS: African American GFR (CKD) >90 (>60 ml/min/1.73 sqM); Anion Gap 7 mmol/L; Blood Urea Nitrogen 12 mg/dL (9-20); Calcium 8.7 mg/dL (8.4-10.2); Carbon Dioxide 23 mmol/L (22-30); Chloride 108 mmol/L (98-107); Glucose 88 mg/dL (74-99); Non-African American GFR(CKD) >90 (>60 ml/min/1.73 sqM); Potassium 4.3 mmol/L (3.5-5.1); Sodium 138 mmol/L (137-145)
[2023-07-24 10:36] LABS: HCT 31.4 % (39.0-53.0); HGB 10.6 gm/dL (13.0-17.5); MCH 30.5 pg (25.0-35.0); MCHC 33.8 g/dL (31.0-37.0); MCV 90.4 fL (80.0-100.0); Mean Platelet Volume 9.9; Platelet Count 180 k/uL (150-450); RBC 3.48 m/uL (4.30-5.90); RDW 13.6 % (11.5-15.5); WBC 12.3 k/uL (3.8-10.6)
[2023-07-24] MEDS ORDERED: SODIUM CHLORIDE 0.9% 100 ML with ceFAZolin 2,000 MG IV ONE ×2 (10:59)
[2023-07-24 11:47] LABS: BUN/Creat Ratio 13.25 Ratio (12.00-20.00); Blood Urea Nitrogen 10.6 mg/dL (9.0-27.0); Chloride 106 mmol/L (96-109); Glucose 92 mg/dL (70-110); Magnesium 1.9 mg/dL (1.5-2.4); Potassium 4.4 mmol/L (3.5-5.5); Sodium 142 mmol/L (135-145)
[2023-07-24 11:48] LABS: ALT 26 U/L (10-49); AST 17 U/L (14-35); Albumin 3.7 g/dL (3.8-4.9); Albumin/Globulin Ratio 1.61 Ratio (1.60-3.17); Alkaline Phosphatase 57 U/L (41-126); Calcium 9.1 mg/dL (8.7-10.3); Carbon Dioxide 26.2 mmol/L (21.6-31.8); Globulin 2.3 g/dL (1.6-3.3); HCT 33.1 % (39.6-50.0); HGB 10.6 g/dL (13.0-17.0); MCH 29.4 pg (27.0-32.0); MCV 91.7 FL (80.0-97.0); Mean Platelet Volume 11.3 FL (9.5-12.2); NRBC Per 100 WBC 0 X 10*3/uL (0.00-0.01); Platelet Count 215 X 10*3/uL (140-440); RBC 3.61 X 10*6/uL (4.40-5.60); RDW 14.1 % (11.5-14.5); Total Bilirubin 0.3 mg/dL (0.3-1.2); WBC 12.78 X 10*3/uL (4.50-10.00)
[2023-07-24] MEDS ORDERED: LACTATED RINGERS 1,000 ML IV ONE (12:14)
[2023-07-24] MEDS ORDERED: VANCOMYCIN 1,000 MG VIAL MISCELLANE ONE (12:38)
--- NOTE | 2023-07-24 13:15 | P.OP ---
Date of Procedure: 07/24/23 Preoperative Diagnosis: 1. 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 Right hip avascular necrosis collapse of the femoral head status post right direct anterior total hip replacement 3. Cigarette smoking 4. History of alcohol abuse Postoperative Diagnosis: Same Procedure(s) Performed: Left direct anterior total hip arthroplasty Implants: 1. Stanton Trident II Acetabular Cup, Size #52 2. Luis Alfredo Insignia Size # Femoral Stem, Standard Offset 3. Biolox delta femoral head, 36 mm, -5 neck Anesthesia: MYRNA, regional Surgeon: Ford Sung Estimated Blood Loss (ml): 500 IV fluids (ml): 1,200 Pathology: other (Femoral head sent to pathology) Condition: stable Disposition: PACU Indications for Procedure: The patient previously underwent a right total hip replacement for avascular necrosis 2 days ago. He also had avascular necrosis with collapse of the left head. Please see prior operative note for documentation on our discussion of the potential risks. Again the patient voiced his understanding of these potential risks this morning particularly having bilateral hip replacements. He made a well-informed decision to proceed with total hip replacements. Operative Findings: Avascular necrosis with collapse of the femoral head Description of Procedure: The patient was identified in the preoperative holding area and the correct hip was marked with my initials. I reviewed the procedure and consent with the patient. All of their questions were answered. The patient was then brought back into the operating room by anesthesia. While on the [facility] anesthesia was administered by the anesthesia team. Preoperative antibiotics and tranexamic acid were also given. After the patient was under anesthesia I examined their ankles to determine their preoperative leg length discrepancy. The skin over the anterior aspect of the hip was shaved to remove hair over the site of planned incision. Both feet and ankles were padded with webril and boots for the [place] were applied. The patient was then carefully transferred onto the [place] table. A perineal post was immediately placed. The arms were placed on arm holders and were well-padded. Both boots were secured to the spars on the [place] table. The patient was positioned so that the pelvis was centered over the post. Nonsterile drapes were applied. A timeout was performed identifying the correct patient, operative extremity, and procedure. At this point fluoroscopy was brought in to take preoperative images of the pelvis and operative hip. Using the standing AP pelvis from the office as a template, a comparable image was obtained with fluoroscopy. A metallic bar was used to create a bi-ischial line for use as a reference to leg length adjustments during the procedure. Global offset was also measured on both the operative and nonoperative leg. Fluoroscopy was then brought out and a pre-scrub using a chlorhexidine scrub brush was performed. The operative limb was then prepped and draped in the standard sterile fashion. An anterior longitudinal incision was made lateral and distal to the ASIS. The skin and subcutaneous tissues were incised sharply. The underlying tensor fascia was identified and incised in its midportion. The fascia was dissected free from the underlying muscle and the muscle belly was retracted. A blunt tipped cobra retractor was placed over the superior neck under the muscle fibers of the gluteus minimus. The deep enveloping fascia of the tensor was incised. The anterior leash of vessels were then identified and cauterized. The fascia between the rectus and the capsule was then incised and the pre-capsular fat was excised. A second Cobra was placed inferior to the neck. The interval between the rectus and iliocapsularis and the hip capsule was developed and a retractor was placed carefully over the anterior rim of the acetabulum. A T-shaped anterior capsulotomy was performed. The superior capsular leaflet was left in place in the inferior capsular flap was excised. The Cobra retractors were placed intracapsularly. We then made a femoral neck osteotomy according to preoperative and intraoperative templating and confirmed the level of the osteotomy using fluoroscopic imaging. The femoral head was removed, passed off to the back table, and sized. The superior capsular flap was excised. Retractors were placed circumferentially exposing the acetabulum. We then circumferentially debrided the acetabulum free of labrum and osteophytes. The pulvinar was removed to fully visualize the cotyloid fossa. We then sequentially reamed to achieve peripheral fit and excellent bleeding subchondral bone. The socket was thoroughly irrigated. The acetabular component was impacted into the appropriate position using fluoroscopy to guide version, inclination, and depth of insertion taking care to have a comparable image of the AP pelvis to the standing image taken in the office. An excellent press-fit was achieved and final position was confirmed using fluoroscopy. The press fit was augmented with bony cancellus dome screws. The liner was then impacted into the socket. Attention was then turned to the femur. The remnant dorsal lateral capsule was excised. The short external rotators were visible and protected. A bone hook was used to confirm appropriate translation of the trochanter away from the acetabulum. The leg was then extended and adducted and the bone hook was used to elevate the femur for broaching. A box osteotome and blunt tipped canal sound was then utilized to gain access to the femoral canal. We then sequentially broached the femur in appropriate anteversion until excellent torsional stability was achieved. The neck cut was brought flush to the trial broach with a calcar planar. A trial neck and head were then placed onto the broach and the hip was atraumatically reduced under direct visualization. External rotation to 90 was performed to assess stability. Fluoroscopy was brought in. An AP and lateral fluoroscopic image of the proximal femur was obtained to assess position and fill of the trial broach. An AP of the pelvis was then obtained and matched to the preoperative image taken. A bi-ischial bar was then placed and measurements were taken to assess changes in length and offset. The hip was then carefully dislocated, the proximal femur was exposed, and the trial implants were removed. The wound and proximal femur was thoroughly irrigated using sterile saline and pulsatile lavage. The final femoral implant was dispensed and gently tapped into place generating an excellent press-fit. The trunnion was cleansed and the final head was tapped into place to engage the Moreno taper. The acetabulum was irrigated and visualized to be free of debris. The hip was carefully reduced. Stability was checked clinically with external rotation to 90 and there was no evidence of instability. Final fluoroscopic images were taken. The wound was then thoroughly irrigated and soaked with a dilute Betadine rinse for 3 minutes. 3 L of sterile saline was irrigated through the wound using pulsatile lavage. Local anesthetic cocktail was injected into the soft tissues around the surgical field. A deep drain was placed. The wound was then closed in layers. A sterile dressing was placed over the surgical incision and drain site. The drapes were taken down and the patient was carefully transferred off of the [place] table. Following removal of the boots the leg lengths felt acceptable. The patient was then taken to recovery room having tolerated the procedure well. . PLAN: The patient can weight-bear as tolerated on the operative extremity. 2 doses of postoperative antibiotics then home on doxycylcline given his elevated risk of wound problems. DVT prophylaxis with Eliquis for 4 weeks given his medical history of bilateral hip replacements. Physical therapy for gait training. Discontinue drain postoperative day #1 if output is less than 100 mL per shift.
[2023-07-24 14:46] LABS: Basophils % (A) 0 %; Eosinophils % (A) 0 %; HCT 30.8 % (39.0-53.0); HGB 10.2 gm/dL (13.0-17.5); Lymphocytes % (A) 5 %; MCH 30.3 pg (25.0-35.0); MCHC 33.3 g/dL (31.0-37.0); Mean Platelet Volume 9.1; Monocytes # (A) 0.9 k/uL (0-1.0); Monocytes % (A) 5 %; Neutrophils # (A) 15.3 k/uL (1.3-7.7); Neutrophils % (A) 87 %; Platelet Count 226 k/uL (150-450); RBC 3.38 m/uL (4.30-5.90); RDW 13.5 % (11.5-15.5); WBC 17.6 k/uL (3.8-10.6)
--- NOTE | 2023-07-24 15:54 | P.PN ---
Subjective Progress Note Date: 07/24/23 Hospital course: Patient is a very pleasant 27-year-old male with a past medical history of EtOH abuse, nicotine dependence, anxiety, depression, and bipolar disorder. Patient reports previous history of daily drinking but reports he has been nearly 1 year since his last alcoholic beverage and he denies any history of previous IV drug use. Patient is currently admitted to our facility under orthopedic surgery team secondary to scheduled urgent bilateral hip replacements. 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 Patient underwent right direct anterior total hip arthroplasty on 07/22/23 and is scheduled to undergo left total hip arthroplasty on 07/24/23. We have been consulted for medical management throughout patient's hospitalization. Physical exam: Patient continues to have discomfort to left hip as well as expected postoperative discomfort to right hip. Patient is scheduled to undergo left total hip arthroplasty later this morning with Dr. Sung. Vital signs reviewed and stable. General: Nontoxic, no distress and appears stated age. Derm: Skin warm and dry, normal coloration for ethnicity. Head: Atraumatic, normocephalic and symmetric. Dental caries. Eyes: EOMs intact, no lid lag, and anicteric sclera Mouth: no lip lesions, mucus membranes moist Cardiovascular: regular rate and rhythm with normal S1S2, no murmur, positive posterior tibial pulses bilaterally, and cap refill < 2 seconds. Lungs: Respirations even, regular, and unlabored on room air. Lungs CTA bilaterally, no rhonchi, no rales, no wheezing, and no accessory muscle usage. Abdominal: soft, nontender to palpation, no guarding, no appreciable organomegaly Ext:. No gross muscle atrophy, no edema, no contractures. Movement and sensation intact. Postoperative dressing and drain in place. Neuro: Speech clear, face symmetrical and CN II-XII grossly intact with no noted focal neuro deficits Psych: Alert and oriented to person, place, time, and situation. Appropriate and pleasant affect. Assessment and Plan of Care: Acute postoperative blood loss anemia Leukocytosis Avascular necrosis Status post right total hip arthroplasty -Patient is status post right direct anterior total hip arthroplasty completed b y Dr. Sung on 07/22/23 and scheduled to undergo left total hip arthroplasty later this morning. -Acute postoperative blood loss anemia remains stable with hemoglobin of 10.6 this morning.. Again, this is an expected and stable finding with no need for transfusion or further intervention at this time. We will continue to monitor with repeat morning CBC and place additional orders as indicated based upon these findings. -Acute postoperative leukocytosis is believed to be reactive and improving from initial postoperative to BBC count of 24.21 decreasing back down to 12.78 this morning. -Symptomatic care and pain management. -DVT prophylaxis, pain management, wound/dressing care, weightbearing, and PT/OT per primary admitting orthopedic surgery team. History of alcohol abuse -Patient reports being free from any alcohol use for greater than 1 year. Patient encouraged to continue cessation of any and all alcohol use in the future. Data reviewed: Morning labs reviewed showing improvement of previous postoperative leukocytosis with WBC count decreasing from 24.21 down to 12.78 this morning and CBC also consistent with acute postoperative blood loss anemia with hemoglobin down to 10.6 this morning but remained stable. BMP was unremarkable magnesium normal findings at 1.9. Liver profile also unremarkable. Vital signs reviewed. Blood pressure 135/75, heart rate 95, respiratory rate 17, temp 98.7F, SpO2 of 97% on room air. Thank you for allowing us to participate in the care of this pleasant patient. Do not hesitate to contact us with questions. Someone can be reached from the [facility] hospitalist group all hours of the day at [phone] or via [employer]. Patient was seen independently by Nurse Pracitioner. This document was prepared using [employer] dictation software. Please allow for errors in human resources manager, while rare they do occur. Objective - Vital Signs Vital signs: Vital Signs Temp 99.1 F 07/24/23 08:51 Pulse 95 07/24/23 08:51 Resp 18 07/24/23 08:51 BP 139/75 07/24/23 08:51 Pulse Ox 95 07/24/23 08:51 FiO2 Intake & Output 07/23/23 07/24/23 07/24/23 18:59 06:59 18:59 Output Total 700 725 75 Balance -700 -725 -75 Output: Drainage 100 75 Right Hip 100 75 Urine 700 625 Other: Voiding Method Toilet Toilet Urinal Urinal - Labs CBC & Chem 7: 07/24/23 14:14 07/24/23 09:53 Labs: Abnormal Lab Results - Last 24 Hours (Table) 11/08/23 Range/Units 06:54 WBC 24.21 H (4.50-10.00) X 10*3/uL RBC 4.07 L (4.40-5.60) X 10*6/uL Hgb 11.8 L (13.0-17.0) g/dL Hct 37.2 L (39.6-50.0) % MCHC 31.7 L (32.0-37.0) g/dL Neutrophils # 20.62 H (1.80-7.70) X 10*3/uL Monocytes # 1.95 H (0.20-1.00) X 10*3/uL Eosinophils # 0.01 L (0.04-0.35) X 10*3/uL
[2023-07-24] MEDS: hydrOXYzine pamoate 25 MG CAP PO PRN (17:25)
[2023-07-24] MEDS: SENNOSIDES-DOCUSATE SODIUM 1 EACH TAB PO SCH (21:42)
[2023-07-25] MEDS: HYDROcodone/APAP 10-325MG 1 EACH TAB PO PRN ×4 (01:04→20:33)
[2023-07-25] MEDS ORDERED: SODIUM CHLORIDE 0.9% 1,000 ML IV ONE (01:50)
[2023-07-25] MEDS: LACTATED RINGERS 1,000 ML IV SCH ×2 (05:43)
[2023-07-25] MEDS: SODIUM CHLORIDE 0.9% 1,000 ML IV SCH ×2 (06:18→17:23)
[2023-07-25 06:42] LABS: Appearance,Urine Clear (Clear); Bilirubin,Urine Negative (Negative); Blood,Urine Negative (Negative); Color,Urine Yellow; Glucose,Urine (UA) Negative (Negative); Ketones,Urine Negative (Negative); Leukocyte Esterase,Urine Negative (Negative); Nitrite,Urine Negative (Negative); Protein,Urine Negative (Negative); Specific Gravity,Urine 1.023 (1.001-1.035); Urobilinogen,Urine <2.0 mg/dL (<2.0)
[2023-07-25] MEDS: hydrOXYzine pamoate 25 MG CAP PO PRN ×3 (08:10→20:33)
[2023-07-25] MEDS: HYDROmorphone 1 MG/ML 1 ML SYRINGE IVP PRN ×5 (08:11→21:32)
--- NOTE | 2023-07-25 08:13 | XR ---
EXAMINATION TYPE: XR chest 1V portable DATE OF EXAM: 07/25/2023 2:18 AM COMPARISON: Chest radiographs from 10/26/2012 TECHNIQUE: XR chest 1V portable Portable AP radiograph of the chest. CLINICAL INDICATION:Male, 27 years old with history of sepsis; FINDINGS: Lungs/Pleura: There is no evidence of pleural effusion, focal consolidation, or pneumothorax. Pulmonary vascularity: Unremarkable. Heart/mediastinum: Cardiomediastinal silhouette is unremarkable. Musculoskeletal: No acute osseous pathology. IMPRESSION: No acute cardiopulmonary disease/process.
[2023-07-25 09:09] LABS: Magnesium 1.5 mg/dL (1.5-2.4)
[2023-07-25 09:26] LABS: ALT 22 U/L (10-49); AST 18 U/L (14-35); Albumin/Globulin Ratio 1.58 Ratio (1.60-3.17); Alkaline Phosphatase 44 U/L (41-126); BUN/Creat Ratio 13.44 Ratio (12.00-20.00); Blood Urea Nitrogen 12.1 mg/dL (9.0-27.0); Calcium 7.7 mg/dL (8.7-10.3); Carbon Dioxide 22.7 mmol/L (21.6-31.8); Chloride 105 mmol/L (96-109); Globulin 1.9 g/dL (1.6-3.3); Glucose 108 mg/dL (70-110); Potassium 3.7 mmol/L (3.5-5.5); Sodium 137 mmol/L (135-145); Total Bilirubin <0.2 mg/dL (0.3-1.2); Total Protein 4.9 g/dL (6.2-8.2)
[2023-07-25] MEDS: RIVAROXABAN 10 MG TAB PO SCH (09:33)
[2023-07-25] MEDS: PANTOPRAZOLE 40 MG/10 ML VIAL IVP SCH (09:49)
[2023-07-25 09:50] LABS: Basophils # (A) 0.04 X 10*3/uL (0.00-0.10); Basophils % (A) 0.3 %; Eosinophils # (A) 0 X 10*3/uL (0.04-0.35); Eosinophils % (A) 0 %; HCT 23.2 % (39.6-50.0); HGB 7.4 g/dL (13.0-17.0); Lymphocytes # (A) 2.38 X 10*3/uL (0.90-5.00); Lymphocytes % (A) 15.9 %; MCH 29.2 pg (27.0-32.0); MCHC 31.9 g/dL (32.0-37.0); MCV 91.7 FL (80.0-97.0); Mean Platelet Volume 11.4 FL (9.5-12.2); Monocytes # (A) 2.03 X 10*3/uL (0.20-1.00); Monocytes % (A) 13.6 %; NRBC Per 100 WBC 0 X 10*3/uL (0.00-0.01); Neutrophils % (A) 69.7 %; Platelet Count 197 X 10*3/uL (140-440); RBC 2.53 X 10*6/uL (4.40-5.60); RDW 13.7 % (11.5-14.5); WBC 14.93 X 10*3/uL (4.50-10.00)
--- NOTE | 2023-07-25 10:28 | P.PN ---
Subjective Progress Note Date: 07/25/23 Patient was admitted this morning bedside. He is complaining of pain in both of his hips. He feel somewhat lightheaded but denies chest pain or shortness of breath. He has had issues overnight with tachycardia and a CBC was obtained. Objective - Vital Signs Vital signs: Vital Signs Temp 98.5 F 07/25/23 08:16 Pulse 104 H 07/25/23 08:16 Resp 18 07/25/23 06:16 BP 107/60 07/25/23 08:16 Pulse Ox 98 07/25/23 08:16 FiO2 Intake & Output 07/24/23 07/25/23 07/25/23 18:59 06:59 18:59 Intake Total 2500 Output Total 1655 680 Balance 845 -680 Intake: IV 1700 Intake, IV Titration 800 Amount Sodium Chloride 0.9% 1, 800 000 ml @ 100 mls/hr IV . Q10H [facility] Rx#:[id number] Output: Drainage 155 100 Left Hip 80 100 Right Hip 75 Urine 1000 580 Estimated Blood Loss 500 - Exam The patient is resting comfortably in bed. He is alert and able to answer questions. He is in no apparent distress. He is watching TV and playing video games. Focused examination of the left hip shows a clean surgical dressing with no drainage. His Hemovac was removed without difficulty. There is mild s welling throughout the thigh but it is soft and compressible. Femoral nerve function is intact. He is able to actively flex his ankles and his toes. On inspection of the right hip is surgical dressing is in place with no drainage. There is moderate swelling but the thigh is soft and compressible. Femoral nerve function is intact. He is able to actively plantarflex and dorsiflex his ankle and his toes. - Labs CBC & Chem 7: 07/25/23 03:37 07/25/23 03:37 Labs: Abnormal Lab Results - Last 24 Hours (Table) 07/24/23 07/24/23 07/24/23 Range/Units 07:01 07:01 10:07 WBC 12.78 H 12.3 H (4.50-10.00) X 10*3/uL RBC 3.61 L 3.48 L (4.40-5.60) X 10*6/uL Hgb 10.6 L 10.6 L (13.0-17.0) g/dL Hct 33.1 L 31.4 L (39.6-50.0) % MCHC (32.0-37.0) g/dL Neutrophils # (1.3-7.7) k/uL Monocytes # (0.20-1.00) X 10*3/uL Eosinophils # (0.04-0.35) X 10*3/uL Calcium (8.7-10.3) mg/dL Total Bilirubin (0.3-1.2) mg/dL Total Protein 6.0 L (6.2-8.2) g/dL Albumin 3.7 L (3.8-4.9) g/dL Albumin/Globulin Ratio (1.60-3.17) Ratio 07/24/23 07/25/23 07/25/23 Range/Units 14:14 03:37 03:37 WBC 17.6 H 14.93 H (4.50-10.00) X 10*3/uL RBC 3.38 L 2.53 L (4.40-5.60) X 10*6/uL Hgb 10.2 L 7.4 L (13.0-17.0) g/dL Hct 30.8 L 23.2 L (39.6-50.0) % MCHC 31.9 L (32.0-37.0) g/dL Neutrophils # 15.3 H 10.40 H (1.3-7.7) k/uL Monocytes # 2.03 H (0.20-1.00) X 10*3/uL Eosinophils # 0 L (0.04-0.35) X 10*3/uL Calcium 7.7 L (8.7-10.3) mg/dL Total Bilirubin <0.2 L (0.3-1.2) mg/dL Total Protein 4.9 L (6.2-8.2) g/dL Albumin 3.0 L (3.8-4.9) g/dL Albumin/Globulin Ratio 1.58 L (1.60-3.17) Ratio Assessment and Plan Assessment: Postoperative day #1 status post left direct anterior total hip replacement Postoperative day #3 status post right direct anterior total hip replacement Bilateral hip avascular necrosis with collapse secondary to history of all use Current every day cigarette smoker Plan: 1. Weightbearing as tolerated bilateral lower extremities with assistance and a walker 2. 2 doses postoperative antibiotics followed by doxycycline until his incisions have healed given his risks 3. Internal medicine for parapatellar medical management 4. Acute blood loss anemia with hemoglobin of 7.4 this morning. We'll continue to monitor. 5. Physical therapy for gait training and mobilization 6. Dispo: We'll continue to keep the patient in house at least another day to monitor his vital signs and hemoglobin. Appreciate internal medicine's after school program assistant with perioperative medical management. Discharge planning in process.
--- NOTE | 2023-07-25 16:52 | P.PN ---
Subjective Progress Note Date: 07/25/23 Hospital course: Patient is a very pleasant 27-year-old male with a past medical history of EtOH abuse, nicotine dependence, anxiety, depression, and bipolar disorder. Patient reports previous history of daily drinking but reports he has been nearly 1 year since his last alcoholic beverage and he denies any history of previous IV drug use. Patient is currently admitted to our facility under orthopedic surgery team secondary to scheduled urgent bilateral hip replacements. 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 Patient underwent right direct anterior total hip arthroplasty on 07/22/23 and is scheduled to undergo left total hip arthroplasty on 07/24/23. We have been consulted for medical management throughout patient's hospitalization. Physical exam: Patient seen and fully evaluated at bedside this morning. Patient is day 3 postop of right total hip arthroplasty and day 1 postop of left total hip arthroplasty. Patient was sitting up in the chair this morning. Patient reports getting up from bed and moving to chair with physical therapy. Patient reports moderate postoperative pain but states it is being controlled with current medication regimen. Patient otherwise denies having any question, needs, or complaints at this time. Vital signs reviewed and stable. General: Nontoxic, no distress and appears stated age. Derm: Skin warm and dry, normal coloration for ethnicity. Head: Atraumatic, normocephalic and symmetric. Dental caries. Eyes: EOMs intact, no lid lag, and anicteric sclera Mouth: no lip lesions, mucus membranes moist Cardiovascular: regular rate and rhythm with normal S1S2, no murmur, positive posterior tibial pulses bilaterally, and cap refill < 2 seconds. Lungs: Respirations even, regular, and unlabored on room air. Lungs CTA bilaterally, no rhonchi, no rales, no wheezing, and no accessory muscle usage. Abdominal: soft, nontender to palpation, no guarding, no appreciable organomegaly Ext:. No gross muscle atrophy, no edema, no contractures. Movement and sensation intact. Postoperative dressings and drain in place. Neuro: Speech clear, face symmetrical and CN II-XII grossly intact with no noted focal neuro deficits Psych: Alert and oriented to person, place, time, and situation. Appropriate and pleasant affect. Assessment and Plan of Care: Acute postoperative blood loss anemia Leukocytosis Avascular necrosis Status post right total hip arthroplasty 11/7/23 Status post left total hip arthroplasty 07/24/23 -Acute postoperative blood loss anemia worsening after second surgical procedure with hemoglobin decreasing to 7.4. Again, this is an expected with no need for transfusion at this time, however due to significant drop from initial preoperative hemoglobin we will repeat this CBC every 12 hours and continue to monitor closely. Patient to be transfused for any hemoglobin resulting a less than 7 and/or if he develops symptomatic anemia. -Symptomatic care and pain management. -DVT prophylaxis, pain management, wound/dressing care, weightbearing, and PT/OT per primary admitting orthopedic surgery team. Hypomagnesemia -Magnesium 1.5, orders placed for magnesium sulfate 2 g IVPB 1 dose. History of alcohol abuse -Patient reports being free from any alcohol use for greater than 1 year. Patient encouraged to continue cessation of any and all alcohol use in the future. Data reviewed: Morning labs reviewed showing postoperative acute blood loss anemia with hemoglobin decreasing down to 7.4 and leukocytosis with WBC count of 14.93. BMP unremarkable. Liver profile normal findings. Magnesium was low at 1.5 and orders placed for magnesium sulfate 2 g IVPB 1 dose. -Vital signs reviewed and remained stable. Blood pressure 107/60, heart rate 104, respiratory rate 18, temp 98.5F, SpO2 is 90% on room air. Thank you for allowing us to participate in the care of this pleasant patient. Do not hesitate to contact us with questions. Someone can be reached from the [facility] hospitalist group all hours of the day at [phone] or via perfect serve. Patient was seen independently by Nurse Pracitioner. This document was prepared using [employer] dictation software. Please allow for errors in regional liaison, while rare they do occur. Objective - Vital Signs Vital signs: Vital Signs Temp 98.5 F 07/25/23 08:16 Pulse 104 H 07/25/23 08:16 Resp 18 07/25/23 06:16 BP 107/60 07/25/23 08:16 Pulse Ox 98 07/25/23 08:16 FiO2 Intake & Output 07/24/23 07/25/23 07/25/23 18:59 06:59 18:59 Intake Total 2500 Output Total 1655 680 Balance 845 -680 Intake: IV 1700 Intake, IV Titration 800 Amount Sodium Chloride 0.9% 1, 800 000 ml @ 100 mls/hr IV . Q10H [facility] Rx#:[id number] Output: Drainage 155 100 Left Hip 80 100 Right Hip 75 Urine 1000 580 Estimated Blood Loss 500 - Labs CBC & Chem 7: 07/25/23 03:37 07/25/23 03:37 Labs: Abnormal Lab Results - Last 24 Hours (Table) 07/24/23 07/24/23 07/24/23 Range/Units 07:01 07:01 09:53 WBC 12.78 H (4.50-10.00) X 10*3/uL RBC 3.61 L (4.40-5.60) X 10*6/uL Hgb 10.6 L (13.0-17.0) g/dL Hct 33.1 L (39.6-50.0) % Neutrophils # (1.3-7.7) k/uL Chloride 108 H (98-107) mmol/L Total Protein 6.0 L (6.2-8.2) g/dL Albumin 3.7 L (3.8-4.9) g/dL 07/24/23 07/24/23 Range/Units 10:07 14:14 WBC 12.3 H 17.6 H (4.50-10.00) X 10*3/uL RBC 3.48 L 3.38 L (4.40-5.60) X 10*6/uL Hgb 10.6 L 10.2 L (13.0-17.0) g/dL Hct 31.4 L 30.8 L (39.6-50.0) % Neutrophils # 15.3 H (1.3-7.7) k/uL Chloride (98-107) mmol/L Total Protein (6.2-8.2) g/dL Albumin (3.8-4.9) g/dL
[2023-07-25 17:18] LABS: HCT 24.9 % (39.0-53.0); MCH 30.3 pg (25.0-35.0); MCHC 33.2 g/dL (31.0-37.0); MCV 91.3 fL (80.0-100.0); Mean Platelet Volume 8.5; Platelet Count 178 k/uL (150-450); RBC 2.73 m/uL (4.30-5.90); RDW 13.3 % (11.5-15.5); WBC 11.7 k/uL (3.8-10.6)
[2023-07-25] MEDS: MAGNESIUM SULFATE-D5W PMX 1 GM in DEXTROSE/WATER 1 100ML.BAG IVPB SCH ×2 (17:23→20:32)
[2023-07-25 17:26] LABS: HGB 8.3 gm/dL (13.0-17.5)
[2023-07-25] MEDS: SENNOSIDES-DOCUSATE SODIUM 1 EACH TAB PO SCH (22:44)
[2023-07-25] MEDS: DOXYCYCLINE 100 MG CAP PO SCH (22:45)
[2023-07-26] MEDS: LACTATED RINGERS 1,000 ML IV SCH ×4 (00:29→19:38)
[2023-07-26] MEDS: SODIUM CHLORIDE 0.9% 1,000 ML IV SCH ×3 (00:50→19:37)
[2023-07-26] MEDS: HYDROmorphone 1 MG/ML 1 ML SYRINGE IVP PRN ×8 (01:22→23:03)
[2023-07-26] MEDS: HYDROcodone/APAP 10-325MG 1 EACH TAB PO PRN ×3 (06:30→17:37)
[2023-07-26] MEDS: hydrOXYzine pamoate 25 MG CAP PO PRN ×2 (06:31→11:53)
[2023-07-26] MEDS: PANTOPRAZOLE 40 MG/10 ML VIAL IVP SCH (07:32)
[2023-07-26] MEDS: RIVAROXABAN 10 MG TAB PO SCH (07:33)
[2023-07-26] MEDS: DOXYCYCLINE 100 MG CAP PO SCH ×2 (07:33→19:37)
--- NOTE | 2023-07-26 08:13 | P.PN ---
Subjective Progress Note Date: 07/26/23 Patient is doing better this morning. He is sitting up in bed watching TV. His pain is better controlled. He denies feeling lightheaded. He also denies chest pain or shortness of breath. Objective - Vital Signs Vital signs: Vital Signs Temp 98.7 F 07/25/23 19:28 Pulse 111 H 07/25/23 19:35 Resp 16 07/25/23 19:28 BP 145/76 07/25/23 19:28 Pulse Ox 94 L 07/25/23 19:00 FiO2 Intake & Output 07/25/23 07/26/23 07/26/23 18:59 06:59 18:59 Intake Total 1200 Output Total 2300 800 Balance -1100 -800 Intake: Intake, IV Titration 1200 Amount Sodium Chloride 0.9% 100 1200 ml @ 0 mls/hr IV .STK-MED ONE with ceFAZolin 2,000 mg Rx#:[id number] Output: Urine 2300 800 Other: Voiding Method Urinal - Exam sitting up comfortably in bed. He is alert and able to answer questions. On inspection of both hips the dressings are clean and intact with no drainage or strike through. Both thighs were soft and compressible. Femoral nerve function is intact bilaterally. The patient is able to actively plantarflex and dorsiflex his ankles and toes bilaterally. Sensation is intact to light touch throughout both feet. - Labs CBC & Chem 7: 07/25/23 17:09 07/25/23 03:37 Labs: Abnormal Lab Results - Last 24 Hours (Table) 07/25/23 07/25/23 07/25/23 Range/Units 03:37 03:37 17:09 WBC 14.93 H 11.7 H (4.50-10.00) X 10*3/uL RBC 2.53 L 2.73 L (4.40-5.60) X 10*6/uL Hgb 7.4 L 8.3 L D (13.0-17.0) g/dL Hct 23.2 L 24.9 L (39.6-50.0) % MCHC 31.9 L (32.0-37.0) g/dL Neutrophils # 10.40 H (1.80-7.70) X 10*3/uL Monocytes # 2.03 H (0.20-1.00) X 10*3/uL Eosinophils # 0 L (0.04-0.35) X 10*3/uL Calcium 7.7 L (8.7-10.3) mg/dL Total Bilirubin <0.2 L (0.3-1.2) mg/dL Total Protein 4.9 L (6.2-8.2) g/dL Albumin 3.0 L (3.8-4.9) g/dL Albumin/Globulin Ratio 1.58 L (1.60-3.17) Ratio Assessment and Plan Assessment: Postoperative day #4 status post right direct anterior 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 The patient continues to improve. If his next hemoglobin is stable we can discontinue serial CBC checks as the patient is asymptomatic. We've surgical dressings in place. The patient will continue to work with physical therapy. He is on doxycycline for low-dose antibiotic supp ression given his elevated risk profile for delayed wound healing and infection. The patient has been seen by care management and plans on discharging to stay with his grandma with home health care. Anticipate discharge likely on Friday.
[2023-07-26 11:12] LABS: HCT 24.8 % (39.6-50.0); HGB 7.9 g/dL (13.0-17.0); MCH 29.2 pg (27.0-32.0); MCHC 31.9 g/dL (32.0-37.0); MCV 91.5 FL (80.0-97.0); Mean Platelet Volume 11.4 FL (9.5-12.2); NRBC Per 100 WBC 0 X 10*3/uL (0.00-0.01); Platelet Count 214 X 10*3/uL (140-440); RBC 2.71 X 10*6/uL (4.40-5.60); RDW 13.5 % (11.5-14.5); WBC 12.64 X 10*3/uL (4.50-10.00)
[2023-07-26 11:49] LABS: ALT 23 U/L (10-49); AST 18 U/L (14-35); Albumin 3.2 g/dL (3.8-4.9); Albumin/Globulin Ratio 1.39 Ratio (1.60-3.17); Alkaline Phosphatase 51 U/L (41-126); BUN/Creat Ratio 10.43 Ratio (12.00-20.00); Blood Urea Nitrogen 7.3 mg/dL (9.0-27.0); Calcium 8.7 mg/dL (8.7-10.3); Carbon Dioxide 22.8 mmol/L (21.6-31.8); Chloride 102 mmol/L (96-109); Globulin 2.3 g/dL (1.6-3.3); Glucose 103 mg/dL (70-110); Magnesium 1.9 mg/dL (1.5-2.4); Potassium 3.9 mmol/L (3.5-5.5); Sodium 136 mmol/L (135-145); Total Bilirubin 0.3 mg/dL (0.3-1.2); Total Protein 5.5 g/dL (6.2-8.2)
--- NOTE | 2023-07-26 13:33 | P.PN ---
Subjective Progress Note Date: 07/26/23 Hospital course: Patient is a very pleasant 27-year-old male with a past medical history of EtOH abuse, nicotine dependence, anxiety, depression, and bipolar disorder. Patient reports previous history of daily drinking but reports he has been nearly 1 year since his last alcoholic beverage and he denies any history of previous IV drug use. Patient is currently admitted to our facility under orthopedic surgery team secondary to scheduled urgent bilateral hip replacements. 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 Patient underwent right direct anterior total hip arthroplasty on 07/22/23 and is scheduled to undergo left total hip arthroplasty on 07/24/23. We have been consulted for medical management throughout patient's hospitalization. Physical exam: Patient seen and fully evaluated at bedside this morning. Patient is day 4 postop of right total hip arthroplasty and day 2 postop of left total hip arthroplasty. Patient was resting in bed and currently reports continued moderate postoperative pain but again states it is being controlled with current medication regimen just wears off a little too quick. Patient otherwise denies having any question, needs, or complaints at this time. Vital signs reviewed and stable. General: Nontoxic, no distress and appears stated age. Derm: Skin warm and dry, normal coloration for ethnicity. Head: Atraumatic, normocephalic and symmetric. Dental caries. Eyes: EOMs intact, no lid lag, and anicteric sclera Mouth: no lip lesions, mucus membranes moist Cardiovascular: regular rate and rhythm with normal S1S2, no murmur, positive posterior tibial pulses bilaterally, and cap refill < 2 seconds. Lungs: Respirations even, regular, and unlabored on room air. Lungs CTA bilaterally, no rhonchi, no rales, no wheezing, and no accessory muscle usage. Abdominal: soft, nontender to palpation, no guarding, no appreciable organomegaly Ext:. No gross muscle atrophy, no edema, no contractures. Movement and sensation intact. Postoperative dressings and drain in place. Neuro: Speech clear, face symmetrical and CN II-XII grossly intact with no noted focal neuro deficits Psych: Alert and oriented to person, place, time, and situation. Appropriate and pleasant affect. Assessment and Plan of Care: Acute postoperative blood loss anemia Leukocytosis Avascular necrosis Status post right total hip arthroplasty 07/22/23 Status post left total hip arthroplasty 07/24/23 -Acute postoperative blood loss anemia stable with hemoglobin of 7.9. Again, this is an expected with no need for transfusion at this time, however due to significant drop from initial preoperative hemoglobin we will repeat this CBC every 12 hours and continue to monitor closely. Patient to be transfused for any hemoglobin resulting a less than 7 and/or if he develops symptomatic anemia. -Symptomatic care and pain management. -DVT prophylaxis, pain management, wound/dressing care, weightbearing, and PT/OT per primary admitting orthopedic surgery team. Hypomagnesemia -Magnesium 1.5, orders placed for magnesium sulfate 2 g IVPB 1 dose. History of alcohol abuse -Patient reports being free from any alcohol use for greater than 1 year. Patient encouraged to continue cessation of any and all alcohol use in the future. Data reviewed: Morning labs reviewed. Hemoglobin remained stable. It has been trended every 12 hours resulting from 7.4 yesterday morning to 8.3 and now 7.9. BMP unremarkable. Liver profile normal findings. Hypomagnesemia resolved with repeat magnesium of 1.9. Vital signs reviewed and remained stable. Blood pressure 130/75, heart rate 115, respiratory rate 18, and temp 93% on room air. Thank you for allowing us to participate in the care of this pleasant patient. Do not hesitate to contact us with questions. Someone can be reached from the [facility] hospitalist group all hours of the day at [phone] or via perfect serve. Patient was seen independently by Nurse Pracitioner. This document was prepared using [employer] dictation software. Please allow for errors in pelletising extruder operator, while rare they do occur. Objective - Vital Signs Vital signs: Vital Signs Temp 97.9 F 07/26/23 07:47 Pulse 115 H 07/26/23 07:47 Resp 18 07/26/23 07:47 BP 130/75 07/26/23 07:47 Pulse Ox 93 L 07/26/23 07:47 FiO2 Intake & Output 07/25/23 07/26/23 07/26/23 18:59 06:59 18:59 Intake Total 1200 Output Total 2300 800 Balance -1100 -800 Intake: Intake, IV Titration 1200 Amount Sodium Chloride 0.9% 100 1200 ml @ 0 mls/hr IV .STK-MED ONE with ceFAZolin 2,000 mg Rx#:[id number] Output: Urine 2300 800 Other: Voiding Method Urinal - Labs CBC & Chem 7: 07/26/23 06:37 07/26/23 06:32 Labs: Abnormal Lab Results - Last 24 Hours (Table) 07/25/23 07/25/23 Range/Units 03:37 17:09 WBC 14.93 H 11.7 H (4.50-10.00) X 10*3/uL RBC 2.53 L 2.73 L (4.40-5.60) X 10*6/uL Hgb 7.4 L 8.3 L D (13.0-17.0) g/dL Hct 23.2 L 24.9 L (39.6-50.0) % MCHC 31.9 L (32.0-37.0) g/dL Neutrophils # 10.40 H (1.80-7.70) X 10*3/uL Monocytes # 2.03 H (0.20-1.00) X 10*3/uL Eosinophils # 0 L (0.04-0.35) X 10*3/uL
[2023-07-26 18:51] LABS: HCT 25.1 % (39.0-53.0); HGB 8.5 gm/dL (13.0-17.5); MCH 30.3 pg (25.0-35.0); MCHC 33.7 g/dL (31.0-37.0); Mean Platelet Volume 8.3; Platelet Count 237 k/uL (150-450); RBC 2.79 m/uL (4.30-5.90); WBC 11.2 k/uL (3.8-10.6)
[2023-07-26] MEDS: SENNOSIDES-DOCUSATE SODIUM 1 EACH TAB PO SCH (19:37)
[2023-07-27] MEDS: HYDROcodone/APAP 10-325MG 1 EACH TAB PO PRN ×3 (01:01→16:53)
[2023-07-27] MEDS: hydrOXYzine pamoate 25 MG CAP PO PRN ×3 (01:02→16:54)
[2023-07-27] MEDS: HYDROmorphone 1 MG/ML 1 ML SYRINGE IVP PRN ×7 (02:04→23:12)
[2023-07-27 07:37] LABS: HCT 25.8 % (39.0-53.0); HGB 8.5 gm/dL (13.0-17.5); MCH 30.1 pg (25.0-35.0); MCV 91.1 fL (80.0-100.0); Mean Platelet Volume 8.2; Platelet Count 264 k/uL (150-450); RBC 2.84 m/uL (4.30-5.90)
--- NOTE | 2023-07-27 08:16 | P.PN ---
Subjective Progress Note Date: 07/27/23 The patient is doing well this morning. His hips are still painful, but his pain is improving. He denies chest pain or shortness of breath. Objective - Vital Signs Vital signs: Vital Signs Temp 99.3 F 07/27/23 07:15 Pulse 107 H 07/27/23 07:15 Resp 17 07/27/23 07:15 BP 137/76 07/27/23 07:15 Pulse Ox 99 07/27/23 07:15 FiO2 Intake & Output 07/26/23 07/27/23 07/27/23 18:59 06:59 18:59 Output Total 2100 1700 Balance -2099 -0 Output: Urine 2099 1700 - Exam The patient is sitting up in bed eating breakfast. He is alert and able to answer questions. His dressings are intact with no drainage. His thighs are soft. He moves his toes and up and down. - Labs CBC & Chem 7: 07/27/23 06:19 07/26/23 06:32 Labs: Abnormal Lab Results - Last 24 Hours (Table) 07/26/23 07/26/23 07/26/23 Range/Units 06:32 06:37 18:21 WBC 12.64 H 11.2 H (4.50-10.00) X 10*3/uL RBC 2.71 L 2.79 L (4.40-5.60) X 10*6/uL Hgb 7.9 L 8.5 L (13.0-17.0) g/dL Hct 24.8 L 25.1 L (39.6-50.0) % MCHC 31.9 L (32.0-37.0) g/dL BUN 7.3 L (9.0-27.0) mg/dL BUN/Creatinine Ratio 10.43 L (12.00-20.00) Ratio Total Protein 5.5 L (6.2-8.2) g/dL Albumin 3.2 L (3.8-4.9) g/dL Albumin/Globulin Ratio 1.39 L (1.60-3.17) Ratio 07/27/23 Range/Units 06:19 WBC 11.0 H (4.50-10.00) X 10*3/uL RBC 2.84 L (4.40-5.60) X 10*6/uL Hgb 8.5 L (13.0-17.0) g/dL Hct 25.8 L (39.6-50.0) % MCHC (32.0-37.0) g/dL BUN (9.0-27.0) mg/dL BUN/Creatinine Ratio (12.00-20.00) Ratio Total Protein (6.2-8.2) g/dL Albumin (3.8-4.9) g/dL Albumin/Globulin Ratio (1.60-3.17) Ratio Assessment and Plan Assessment: POD#5 s/p right DA total hip for AVN and collapse POD#3 s/p left DA total hip for AVN and collapse cigarette smoking Plan: The patient continues to improve. Appreciate IM medical management. Continue xarelto for DVT prophylaxis and doxcycline 100 mg BID for antibiotic prophylaxis. Plan for discharge to his grandma's tomorrow.
[2023-07-27 08:37] LABS: Eosinophils # (M) 0.44 k/uL (0-0.7); Lymphocytes # (M) 1.98 k/uL (1.0-4.8); Metamyelocytes # (M) 0.11 k/uL (0); Neutrophils # (M) 7.59 k/uL (1.3-7.7); Neutrophils % (M) 69 %; Nucleated Red Blood Cells 0 /100 WBC (0-0); Total Cells Counted 200
[2023-07-27] MEDS: PANTOPRAZOLE 40 MG/10 ML VIAL IVP SCH (08:42)
[2023-07-27] MEDS: SODIUM CHLORIDE 0.9% 1,000 ML IV SCH ×3 (08:42→20:47)
[2023-07-27 08:43] LABS: Monocytes # (M) 1.21 k/uL (0-1.0)
[2023-07-27] MEDS: DOXYCYCLINE 100 MG CAP PO SCH ×2 (08:43→20:03)
[2023-07-27] MEDS: RIVAROXABAN 10 MG TAB PO SCH (08:43)
--- NOTE | 2023-07-27 14:07 | P.PN ---
Subjective Progress Note Date: 07/27/23 Hospital course: Patient is a very pleasant 27-year-old male with a past medical history of EtOH abuse, nicotine dependence, anxiety, depression, and bipolar disorder. Patient reports previous history of daily drinking but reports he has been nearly 1 year since his last alcoholic beverage and he denies any history of previous IV drug use. Patient is currently admitted to our facility under orthopedic surgery team secondary to scheduled urgent bilateral hip replacements. 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 Patient underwent right direct anterior total hip arthroplasty on 07/22/23 and is scheduled to undergo left total hip arthroplasty on 07/24/23. We have been consulted for medical management throughout patient's hospitalization. Physical exam: Patient seen and fully evaluated at bedside this morning. Patient is day 5 postop of right total hip arthroplasty and day 3 postop of left total hip arthroplasty. Patient was sitting up in a recliner at bedside this morning. Patient reports he is making progress and was able to stand by himself this morning, stating obviously nursing staff was next to him but he was able to stand by himself for the first time since both surgeries. Patient currently reports pain is controlled at this time and denies having any further questions, needs, or complaints. Vital signs reviewed and stable. General: Nontoxic, no distress and appears stated age. Derm: Skin warm and dry, normal coloration for ethnicity. Head: Atraumatic, normocephalic and symmetric. Dental caries. Eyes: EOMs intact, no lid lag, and anicteric sclera Mouth: no lip lesions, mucus membranes moist Cardiovascular: regular rate and rhythm with normal S1S2, no murmur, positive posterior tibial pulses bilaterally, and cap refill < 2 seconds. Lungs: Respirations even, regular, and unlabored on room air. Lungs CTA gwendolyn aterally, no rhonchi, no rales, no wheezing, and no accessory muscle usage. Abdominal: soft, nontender to palpation, no guarding, no appreciable organomegaly Ext:. No gross muscle atrophy, no edema, no contractures. Movement and sensation intact. Postoperative dressings and drain in place. Neuro: Speech clear, face symmetrical and CN II-XII grossly intact with no noted focal neuro deficits Psych: Alert and oriented to person, place, time, and situation. Appropriate and pleasant affect. Assessment and Plan of Care: Acute postoperative blood loss anemia Leukocytosis Avascular necrosis Status post right total hip arthroplasty 07/22/23 Status post left total hip arthroplasty 07/24/23 -Acute postoperative blood loss anemia stable with hemoglobin increasing to 8.5. This is an expected with no need for transfusion at this time, hemoglobin has remained stable, no longer need to trend every 12 hours we will repeat tomorrow morning (q24 hrs). Again we will continue to monitor closely and transfuse as needed for hemoglobin less than 7 and/or symptomatic anemia. -Symptomatic care and pain management. -DVT prophylaxis, pain management, wound/dressing care, weightbearing, and PT/OT per primary admitting orthopedic surgery team. -Patient currently on DVT prophylaxis with Xarelto 10 mg daily Hypomagnesemia, resolved History of alcohol abuse -Patient reports being free from any alcohol use for greater than 1 year. Patie nt encouraged to continue cessation of any and all alcohol use in the future. Data reviewed: Morning labs reviewed. CBC showing Hemoglobin remained stable and is currently 0.5. WBC count showing continued leukocytosis at 11.0. Vital signs reviewed and remained stable. Blood pressure 137/76, heart rate 107, respiratory rate 17, temp 99.3F, and SpO2 of 99% on room air. Thank you for allowing us to participate in the care of this pleasant patient. Do not hesitate to contact us with questions. Someone can be reached from the [facility] hospitalist group all hours of the day at [phone] or via perfect serve. Patient was seen independently by Nurse Pracitioner. This document was prepared using [employer] dictation software. Please allow for errors in glost tile sorter, while rare they do occur. Zach Haji NP rendered care for this patient independently, reviewed the findings and plan as documented in the note above. I did not physically speak with or examine the patient on this date. Objective - Vital Signs Vital signs: Vital Signs Temp 99.3 F 07/27/23 07:15 Pulse 107 H 07/27/23 07:15 Resp 17 07/27/23 07:15 BP 137/76 07/27/23 07:15 Pulse Ox 99 07/27/23 07:15 FiO2 Intake & Output 07/26/23 07/27/23 07/27/23 18:59 06:59 18:59 Output Total 2100 1700 750 Balance -2100 -1700 -750 Output: Urine 2100 1700 750 - Labs CBC & Chem 7: 07/28/23 05:33 07/28/23 05:33 Labs: Abnormal Lab Results - Last 24 Hours (Table) 07/26/23 07/26/23 07/26/23 Range/Units 06:32 06:37 18:21 WBC 12.64 H 11.2 H (4.50-10.00) X 10*3/uL RBC 2.71 L 2.79 L (4.40-5.60) X 10*6/uL Hgb 7.9 L 8.5 L (13.0-17.0) g/dL Hct 24.8 L 25.1 L (39.6-50.0) % MCHC 31.9 L (32.0-37.0) g/dL Monocytes # (Manual) (0-1.0) k/uL Metamyelocytes # (Man) (0) k/uL BUN 7.3 L (9.0-27.0) mg/dL BUN/Creatinine Ratio 10.43 L (12.00-20.00) Ratio Total Protein 5.5 L (6.2-8.2) g/dL Albumin 3.2 L (3.8-4.9) g/dL Albumin/Globulin Ratio 1.39 L (1.60-3.17) Ratio 07/27/23 Range/Units 06:19 WBC 11.0 H (4.50-10.00) X 10*3/uL RBC 2.84 L (4.40-5.60) X 10*6/uL Hgb 8.5 L (13.0-17.0) g/dL Hct 25.8 L (39.6-50.0) % MCHC (32.0-37.0) g/dL Monocytes # (Manual) 1.21 H (0-1.0) k/uL Metamyelocytes # (Man) 0.11 H (0) k/uL BUN (9.0-27.0) mg/dL BUN/Creatinine Ratio (12.00-20.00) Ratio Total Protein (6.2-8.2) g/dL Albumin (3.8-4.9) g/dL Albumin/Globulin Ratio (1.60-3.17) Ratio
[2023-07-27] MEDS: SENNOSIDES-DOCUSATE SODIUM 1 EACH TAB PO SCH (20:03)
[2023-07-27] MEDS: LACTATED RINGERS 1,000 ML IV SCH ×2 (20:47→20:48)
[2023-07-27 21:20] VITALS: RESP 20
[2023-07-28] MEDS: HYDROcodone/APAP 10-325MG 1 EACH TAB PO PRN (02:18)
[2023-07-28] MEDS: hydrOXYzine pamoate 25 MG CAP PO PRN (02:18)
[2023-07-28] MEDS: HYDROmorphone 1 MG/ML 1 ML SYRINGE IVP PRN ×2 (03:27→06:51)
[2023-07-28 06:19] LABS: HCT 25.2 % (39.0-53.0); HGB 8.8 gm/dL (13.0-17.5); MCH 30.2 pg (25.0-35.0); MCV 86.5 fL (80.0-100.0); Mean Platelet Volume 12.3; Platelet Count 188 k/uL (150-450); RBC 2.91 m/uL (4.30-5.90); WBC 11.1 k/uL (3.8-10.6)
[2023-07-28 07:03] LABS: ALT 66 U/L (4-49); AST 52 U/L (17-59); African American GFR (CKD) >90 (>60 ml/min/1.73 sqM); Albumin 3.3 g/dL (3.5-5.0); Albumin/Globulin Ratio 1.1; Alkaline Phosphatase 63 U/L (38-126); Anion Gap 13 mmol/L; Blood Urea Nitrogen 12 mg/dL (9-20); Calcium 9.2 mg/dL (8.4-10.2); Carbon Dioxide 21 mmol/L (22-30); Chloride 105 mmol/L (98-107); Globulin 2.9 g/dL; Glucose 98 mg/dL (74-99); Magnesium 1.9 mg/dL (1.6-2.3); Non-African American GFR(CKD) >90 (>60 ml/min/1.73 sqM); Potassium 4.9 mmol/L (3.5-5.1); Sodium 139 mmol/L (137-145); Total Bilirubin 0.6 mg/dL (0.2-1.3); Total Protein 6.2 g/dL (6.3-8.2)
[2023-07-28] MEDS: RIVAROXABAN 10 MG TAB PO SCH (07:30)
[2023-07-28] MEDS: PANTOPRAZOLE 40 MG/10 ML VIAL IVP SCH (07:30)
[2023-07-28] MEDS: DOXYCYCLINE 100 MG CAP PO SCH (07:31)
[2023-07-28] MEDS ORDERED: oxyCODONE-APAP 10-325MG 1 EACH TAB PO PRN (07:36)
--- NOTE | 2023-07-28 07:57 | P.PN ---
Subjective Progress Note Date: 07/28/23 Patient is doing well this morning. Pain continues to improve. Denies chest pain or shortness of breath. Objective - Vital Signs Vital signs: Vital Signs Temp 98.9 F 07/28/23 01:53 Pulse 100 07/28/23 01:53 Resp 20 07/28/23 01:53 BP 131/74 07/28/23 01:53 Pulse Ox 91 L 07/28/23 01:53 FiO2 Intake & Output 07/27/23 07/28/23 07/28/23 18:59 06:59 18:59 Output Total 1870 950 Balance -1870 -950 Output: Urine 1870 950 - Exam Patient is sitting up comfortably in bed. Alert and able to answer questions. The dressings over both hips are intact with no drainage or strikethrough. His thighs are soft. Motor and sensory nerve function are intact. - Labs CBC & Chem 7: 07/28/23 05:33 07/28/23 05:33 Labs: Abnormal Lab Results - Last 24 Hours (Table) 07/27/23 07/28/23 07/28/23 Range/Units 06:19 05:33 05:33 WBC 11.1 H (3.8-10.6) k/uL RBC 2.91 L (4.30-5.90) m/uL Hgb 8.8 L (13.0-17.5) gm/dL Hct 25.2 L (39.0-53.0) % Monocytes # (Manual) 1.21 H (0-1.0) k/uL Metamyelocytes # (Man) 0.11 H (0) k/uL Carbon Dioxide 21 L (22-30) mmol/L ALT 66 H (4-49) U/L Total Protein 6.2 L (6.3-8.2) g/dL Albumin 3.3 L (3.5-5.0) g/dL Assessment and Plan Plan: Continue treatment as outlined with Xarelto for DVT prophylaxis and doxycycline for antibiotic prophylaxis given his risk profile. Plan on discharge home today with his grandma if he continues to do well, passes physical therapy and his pain is controlled.
--- NOTE | 2023-07-28 08:00 | P.DS ---
Providers Date of admission: 07/22/23 13:18 Attending physician: Ford Sung Consults: 07/22/23 18:36 Consult Physician Routine Consulting Provider: Faye Lewis Consult Reason/Comments: Post op medical management Do you want consulting provider notified?: Yes Primary care physician: Grey Sanders [facility] Course: The patient is a pleasant 27 year old male who was admitted under my care and u nderwent bilateral staged hip replacements for bilateral hip AVN with collapse due to a history of heavy alcohol use. Following surgery he received 2 doses of Ancef followed by doxycycline. He was given a dose of lovenox between his hip surgeries then started on Xarelto. Internal medicine was consulted and provided perioperative medical management. He worked with physical therapy. His drains were pulled without difficulty. [facility] Plan - Discharge Summary Discharge Rx Participant: Yes New Discharge Prescriptions: New Docusate [Colace] 100 mg PO BID #60 capsule Doxycycline [Vibramycin] 100 mg PO Q12HR #28 capsule Apixaban [Eliquis] 2.5 mg PO BID #60 tab Omeprazole 20 mg PO DAILY #30 tab oxyCODONE-APAP 10-325MG [Percocet 10-325 mg] 1 tab PO Q6HR PRN 7 Days #28 tab PRN Reason: Pain No Action Celecoxib [CeleBREX] 200 mg PO BID buPROPion XL [Wellbutrin XL] 150 mg PO DAILY HYDROcodone/APAP 7.5-325MG [[place] 7.5-325] 1 tab PO Q6HR PRN PRN Reason: Pain Varenicline [Chantix Continuing Pack] 1 mg PO BID Omeprazole Magnesium [PriLOSEC OTC] 20 mg PO DAILY PRN PRN Reason: Heartburn Discharge Medication List Celecoxib [CeleBREX] 200 mg PO BID 07/14/23 [History] HYDROcodone/APAP 7.5-325MG [[place] 7.5-325] 1 tab PO Q6HR PRN 07/14/23 [History] Omeprazole Magnesium [PriLOSEC OTC] 20 mg PO DAILY PRN 07/14/23 [History] Varenicline [Chantix Continuing Pack] 1 mg PO BID 07/14/23 [History] buPROPion XL [Wellbutrin XL] 150 mg PO DAILY 07/14/23 [History] Apixaban [Eliquis] 2.5 mg PO BID #60 tab 07/24/23 [Rx] Docusate [Colace] 100 mg PO BID #60 capsule 07/24/23 [Rx] Doxycycline [Vibramycin] 100 mg PO Q12HR #28 capsule 07/24/23 [Rx] Omeprazole 20 mg PO DAILY #30 tab 07/24/23 [Rx] oxyCODONE-APAP 10-325MG [Percocet 10-325 mg] 1 tab PO Q6HR PRN 7 Days #28 tab 07/24/23 [Rx] Follow up Appointment(s)/Referral(s): [facility], [NON-STAFF] - As Needed Ford Sung MD [Medical Doctor] - 2 Weeks (need 2 weeks not two days :)) Activity/Diet/Wound Care/Special Instructions: 1. Weightbearing as tolerated on both of her lower extremities. Use a walker to ambulate for the first 2 weeks after surgery 2. Leave surgical dressings in place. It is okay to shower but don't soak your wounds - do not submerge them in water such as a bath or swimming pool. 3. Take pain medications as prescribed. While taking narcotic pain medications take a stool softener. 4. It is important to take her medication for blood clot prevention for 4 weeks following surgery. You were prescribed Eliquis. 5. Follow-up in the office 2 weeks after surgery. 6. Please call the office if any questions or concerns prior to your first appointment ([phone]). Discharge Disposition: HOME SELF-CARE
[2023-07-28 08:36] VITALS: BP 156/76; PULSE 106; TEMP 98.2
--- NOTE | 2023-07-28 16:15 | P.PN ---
Subjective Progress Note Date: 07/28/23 Hospital course: Patient is a very pleasant 27-year-old male with a past medical history of EtOH abuse, nicotine dependence, anxiety, depression, and bipolar disorder. Patient reports previous history of daily drinking but reports he has been nearly 1 year since his last alcoholic beverage and he denies any history of previous IV drug use. Patient is currently admitted to our facility under orthopedic surgery team secondary to scheduled urgent bilateral hip replacements. 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 Patient underwent right direct anterior total hip arthroplasty on 07/22/23 and is scheduled to undergo left total hip arthroplasty on 07/24/23. We have been consulted for medical management throughout patient's hospitalization. Physical exam: Patient seen and fully evaluated at bedside this morning. Patient is day 6 postop of right total hip arthroplasty and day 4 postop of left total hip arthroplasty. Patient has shown daily progression and reports currently pain has been managed with current pain medication regimen. Patient has been ambulating with a walker in improving independence daily. Patient currently denies having any other complaints including headache, lightheadedness, dizziness, chest pain, palpitations, shortness of breath, or experiencing any numbness/tingling/weakness in his extremities. Patient denies having any difficulties with urination. Vital signs reviewed and stable. General: Nontoxic, no distress and appears stated age. Derm: Skin warm and dry, normal coloration for ethnicity. Head: Atraumatic, normocephalic and symmetric. Dental caries. Eyes: EOMs intact, no lid lag, and anicteric sclera Mouth: no lip lesions, mucus membranes moist Cardiovascular: regular rate and rhythm with normal S1S2, no murmur, positive posterior tibial pulses bilaterally, and cap refill < 2 seconds. Lungs: Respirations even, regular, and unlabored on room air. Lungs CTA bilaterally, no rhonchi, no rales, no wheezing, and no accessory muscle usage. Abdominal: soft, nontender to palpation, no guarding, no appreciable organomegaly Ext:. No gross muscle atrophy, no edema, no contractures. Movement and sensation intact. Postoperative dressings and drain in place. Neuro: Speech clear, face symmetrical and CN II-XII grossly intact with no noted focal neuro deficits Psych: Alert and oriented to person, place, time, and situation. Appropriate and pleasant affect. Assessment and Plan of Care: Acute postoperative blood loss anemia Leukocytosis Avascular necrosis Status post right total hip arthroplasty 07/22/23 Status post left total hip arthroplasty 07/24/23 -Acute postoperative blood loss anemia stable with hemoglobin increasing to 8.5. This is an expected with no need for transfusion at this time, hemoglobin has remained stable, no longer need to trend every 12 hours we will repeat tomorrow morning (q24 hrs). Again we will continue to monitor closely and transfuse as needed for hemoglobin less than 7 and/or symptomatic anemia. -Symptomatic care and pain management. -DVT prophylaxis, pain management, wound/dressing care, weightbearing, and PT/OT per primary admitting orthopedic surgery team. -Patient currently on DVT prophylaxis with Xarelto 10 mg daily Hypomagnesemia, resolved History of alcohol abuse -Patient reports being free from any alcohol use for greater than 1 year. Patient encouraged to continue cessation of any and all alcohol use in the future. Data reviewed: Morning labs reviewed. CBC continues to show improvement with hemoglobin of 8.8 this morning and WBC count of 11.1. BMP unremarkable. Magnesium normal findings at 1.9. Liver profile showing slight elevation in ALT of 66 otherwise normal findings. Vital signs reviewed and remained stable. Blood pressure 156/76, heart rate 106, respiratory rate 20, temp 98.2F, SpO2 of 96% on room air. From a medical perspective patient is optimized for discharge with no further recommendations once he is cleared by primary admitting orthospine surgery team. Thank you for allowing us to participate in the care of this pleasant patient. Do not hesitate to contact us with questions. Someone can be reached from the [facility] hospitalist group all hours of the day at [phone] or via perfect serve. Patient was seen independently by Nurse Pracitioner. This document was prepared using [employer] dictation software. Please allow for errors in welder/installer, while rare they do occur. Zach Haji NP rendered care for this patient independently, reviewed the findings and plan as documented in the note above. I did not physically speak with or examine the patient on this date. Objective - Vital Signs Vital signs: Vital Signs Temp 98.2 F 07/28/23 07:47 Pulse 106 H 07/28/23 07:47 Resp 20 07/28/23 07:47 BP 156/76 07/28/23 07:47 Pulse Ox 96 07/28/23 07:47 FiO2 Intake & Output 07/27/23 07/28/23 07/28/23 18:59 06:59 18:59 Output Total 1870 950 Balance -1870 -950 Output: Urine 1870 950 - Labs CBC & Chem 7: 07/28/23 05:33 07/28/23 05:33 Labs: Abnormal Lab Results - Last 24 Hours (Table) 07/28/23 07/28/23 Range/Units 05:33 05:33 WBC 11.1 H (3.8-10.6) k/uL RBC 2.91 L (4.30-5.90) m/uL Hgb 8.8 L (13.0-17.5) gm/dL Hct 25.2 L (39.0-53.0) % Carbon Dioxide 21 L (22-30) mmol/L ALT 66 H (4-49) U/L Total Protein 6.2 L (6.3-8.2) g/dL Albumin 3.3 L (3.5-5.0) g/dL
== END 2023-07-28 13:25 | disposition home or self-care (01) | DRG 324 ==
LOC: OR 13:17 → 4SSUR 13:18
PROVIDERS: ADMIT Orthopaedic Surgery; ATTEND Orthopaedic Surgery
PROC: 3E0T3BZ Introduction of Anesthetic Agent into Peripheral Nerves and Plexi, Percutaneous Approach (ICD-10-PCS; 2023-07-22)
PROC: 3E0T33Z Introduction of Anti-inflammatory into Peripheral Nerves and Plexi, Percutaneous Approach (ICD-10-PCS; 2023-07-22)
PROC: 0SR90JA Replacement of Right Hip Joint with Synthetic Substitute, Uncemented, Open Approach (ICD-10-PCS; principal; 2023-07-22 14:45)
PROC: 0SRB0JA Replacement of Left Hip Joint with Synthetic Substitute, Uncemented, Open Approach (ICD-10-PCS; 2023-07-24)
DX: M87.851 Other osteonecrosis, right femur (principal); F17.210 Nicotine dependence, cigarettes, uncomplicated; F10.10 Alcohol abuse, uncomplicated; M87.852 Other osteonecrosis, left femur; F31.9 Bipolar disorder, unspecified; F19.10 Other psychoactive substance abuse, uncomplicated; F41.9 Anxiety disorder, unspecified; D62 Acute posthemorrhagic anemia; E83.42 Hypomagnesemia; M25.752 Osteophyte, left hip; M25.751 Osteophyte, right hip; I10 Essential (primary) hypertension; Z28.310 Unvaccinated for COVID-19; Z87.19 Personal history of other diseases of the digestive system; Z91.51 Personal history of suicidal behavior; Z81.1 Family history of alcohol abuse and dependence; Z81.3 Family history of other psychoactive substance abuse and dependence; Z81.8 Family history of other mental and behavioral disorders; Z79.899 Other long term (current) drug therapy; Z79.1 Long term (current) use of non-steroidal anti-inflammatories (NSAID)
CPT/HCPCS: 64447; 71045; 73501; 80048; 80053; 81003; 83605; 83735; 85025; 85027; 88305; 88311